=== PATIENT | female | born 1990 | race Caucasian/White ===

== ENCOUNTER 2018-12-06 13:21 | Emergency (ER) | payer SELFPAY ==
[2018-12-06] MEDS ORDERED: CEFTRIAXONE/SWI 1gm 1 GM/10 ML SYR ONE (14:45)
[2018-12-06] MEDS ORDERED: NA CHLORIDE 0.9% 1,000 ML ONE (14:45)
[2018-12-06 14:53] LABS: Urine Bacteria >50 /HPF (<20); Urine RBC <5 /HPF (NONE SEEN)
[2018-12-06 14:54] LABS: Urine Culture Reflex Order REFLEXED
[2018-12-06 14:56] LABS: Absolute Lymphocytes (CBC) 2.4 K/uL (0.7-4.9); Basophils % 0.6 % (0-1.3); Hematocrit 32.8 % (36.0-45.0); Lymphocytes % 36.7 % (15.3-44.8); RBC Red Blood Cell Count 4.29 M/uL (3.86-4.86)
--- NOTE | 2018-12-06 15:20 | RAD REPORT ---
EXAM DESCRIPTION: CT - Stone Protocol - 12/06/2018 2:57 pm CLINICAL HISTORY: Abdominal pain COMPARISON: None. TECHNIQUE: Axial 5 mm thick images were obtained without oral or IV contrast. The [id number] span s the entirety of the system partially obscuring uppermost abdomen and lung bases. All CT scans are performed using dose optimization technique as appropriate and may include automated exposure control or mA/KV adjustment according to patient size. FINDINGS: No hydronephrosis is present and no obstructing ureteral calculi. Patient has extensive re nal pyramid calcification. No suspicious renal masses. Isodense masses and pyelonephritis are not exc luded on a stone protocol CT scan. No urinary bladder suspicious finding. No significant adrenal find ing. Uterus and ovaries show no suspicious findings. IUD is in place. Imaged portions of the liver, spleen and pancreas show no suspicious findings on non-contrast imaging . No gallbladder or biliary tree abnormality identified. No suspicious bowel findings. No hernia, mass or bulky lymphadenopathy noted. No free air, free fluid or inflammatory stranding. No significant bony abnormality. IMPRESSION: Extensive bilateral medullary nephrocalcinosis. There are numerous etiologies that cause this renal pyramid mineral deposition. No hydronephrosis or obstructing calculus. No acute finding identified. Isodense masses and pyelonephritis are not excluded on stone protocol technique. 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
--- NOTE | 2018-12-06 15:40 | ER ---
Nurse's Notes [facility] Name: Zelda Davalos Age: 27 yrs Sex: Female : 1990 Arrival Date: 12/06/2018 Time: 13:24 Bed 28 Private MD: JOSE MARSHALL Diagnosis: Abdominal tenderness;Urinary tract infection, site not specified Presentation: 12/06 13:28 Presenting complaint: Patient states: Abd pain since Wednesday, a few episodes of la1 vomiting. Transition of care: patient was not received from another setting of care. Onset of symptoms was December 06, 2018. Risk Assessment: Do you want to hurt yourself or someone else? Patient reports no desire to harm self or others. Initial Sepsis Screen: Does the patient meet any 2 criteria? No. Patient's initial sepsis screen is negative. Does the patient have a suspected source of infection? No. Patient's initial sepsis screen is negative. Care prior to arrival: None. 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 - Social history:: Smoking status: Patient/guardian denies using tobacco. - Ebola Screening: : No symptoms or risks identified at this time. - Family history:: not pertinent. Screenin:57 Abuse screen: Denies threats or abuse. Denies injuries from another. Nutritional ca1 screening: No deficits noted. Tuberculosis screening: No symptoms or risk factors identified. Fall Risk None identified. Assessment: 13:57 General: Appears in no apparent distress. comfortable, Behavior is calm, cooperative, ca1 appropriate for age. Pain: Complains of pain in posterior aspect of right lateral abdomen, right upper quadrant and right lower quadrant Pain currently is 3 out of 10 on a pain scale. at worst was 7 out of 10 on a pain scale. Quality of pain is described as sharp, Pain began 2-3 days ago. Is intermittent. Neuro: Level of Consciousness is awake, alert, obeys commands, Oriented to person, place, time, situation, Appropriate for age. Cardiovascular: Heart tones S1 S2 present Capillary refill < 3 seconds Patient's skin is warm and dry. Respiratory: Airway is patent Respiratory effort is even, unlabored, Respiratory pattern is regular, symmetrical, Breath sounds are clear bilaterally. GI: Abdomen is round non-distended, Bowel sounds present X 4 quads. Abd is soft X 4 quads Abdomen is tender to palpation in right upper quadrant and right lower quadrant Reports nausea, vomiting. : Urine is cloudy. EENT: No deficits noted. No signs and/or symptoms were reported regarding the EENT system. Derm: Skin is intact, is healthy with good turgor, Skin is pink, warm \T\ dry. Musculoskeletal: Circulation, motion, and sensation intact. Capillary refill < 3 seconds, Range of motion: intact in all extremities. 14:55 Reassessment: Patient appears in no apparent distress at this time. Patient and/or ca1 family updated on plan of care and expected duration. Pain level reassessed. Patient is alert, oriented x 3, equal unlabored respirations, skin warm/dry/pink. 15:46 Reassessment: Patient appears in no apparent distress at this time. Patient is alert, ca1 oriented x 3, equal unlabored respirations, skin warm/dry/pink. pending lab results. Will discharge once labs all resulted. 16:25 Reassessment: Patient appears in no apparent distress at this time. Patient is alert, ca1 oriented x 3, equal unlabored respirations, skin warm/dry/pink. Vital Signs: 13:28 Pulse 83; Resp 16; Temp 98.8; Pulse Ox 100% on R/A; Weight 95.25 kg; Height 5 ft. 3 in. la1 (160.02 cm); 13:28 BP 119 / 93; la1 14:55 BP 117 / 74; Pulse 60; Resp 16 S; Pulse Ox 100% ; ca1 15:46 BP 106 / 76; Pulse 65; Resp 16 S; Pulse Ox 100% on R/A; ca1 16:25 BP 110 / 83; Pulse 71; Resp 16 S; Temp 98.4(O); Pulse Ox 100% on R/A; ca1 13:28 Body Mass Index 37.20 (95.25 kg, 160.02 cm) la1 ED Course: 13:24 Patient arrived in ED. am2 13:25 JOSE MARSHALL is Private Physician. am2 13:28 Arm band placed on right wrist. la1 13:29 Triage completed. la1 13:30 Jonathan Parham MD is Attending Physician. carlo 13:45 Dodie Panda, RN is Primary Nurse. ca1 13:57 Patient has correct armband on for positive identification. Placed in gown. Bed in low ca1 position. Call light in reach. Side rails up X 1. Pulse ox on. NIBP on. Warm blanket given. 13:57 No provider procedures requiring assistance completed. ca1 14:00 Urine collected: clean catch specimen, clear, gema colored. jp3 14:40 Inserted saline lock: 22 gauge in left antecubital area, using aseptic technique. Blood jp3 collected. 14:40 Initial lab(s) drawn, by wi, sent to lab. jp3 14:43 Basic Metabolic Panel Sent. ca1 14:43 CBC with Diff Sent. ca1 14:43 Creatinine for Radiology Sent. ca1 14:43 Hepatic Function Sent. ca1 14:43 Lipase Sent. ca1 14:58 CT Stone Protocol In Process Unspecified. EDMS 16:23 IV discontinued, intact, bleeding controlled, No redness/swelling at site. Pressure ca1 dressing applied. Administered Medications: 14:49 Drug: NS 0.9% 1000 ml Route: IV; Rate: 1 bolus; Site: left antecubital; ca1 15:45 Follow up: Response: No adverse reaction; IV Status: Completed infusion ca1 14:49 Drug: Rocephin 1 grams Route: IV; Rate: per protocol; Site: left antecubital; ca1 16:00 Follow up: Response: No adverse reaction; IV Status: Completed infusion ca1 15:45 Drug: Cipro 500 mg Route: PO; ca1 15:45 Follow up: Response: No adverse reaction ca1 Outcome: 15:39 Discharge ordered by . carlo 16:23 Discharged to home ambulatory. ca1 16:23 Condition: stable 16:23 Discharge instructions given to patient, Instructed on discharge instructions, follow up and referral plans. no driving heavy equipment, medication usage, Demonstrated understanding of instructions, follow-up care, medications, Prescriptions given X 4. 16:26 Patient left the ED. ca1 Signatures: Dispatcher [employer] EDMS Jonathan Parham MD MD cha Attema, Lee, RN RN la1 Sherri Lin am2 Maximo Jackson jp3 Dodie Panda RN RN ca1 Corrections: (The following items were deleted from the chart) 16:26 15:46 Reassessment: Patient appears in no apparent distress at this time. Patient is ca1 alert, oriented x 3, equal unlabored respirations, skin warm/dry/pink. ca1
--- NOTE | 2018-12-06 15:40 | EDPHYS ---
Physician Documentation [facility] Name: Zelda Davalos Age: 27 yrs Sex: Female : 1990 Arrival Date: 12/06/2018 Time: 13:24 Bed 28 Private MD: JOSE MARSHALL ED Physician Jonathan Parham HPI: 12/06 14:41 This 27 yrs old Female presents to ER via Ambulatory with complaints of carlo Abdominal Pain, Nausea. 14:41 The patient presents to the emergency department with nausea, vomiting, abdominal pain, carlo of the right lower quadrant and left lower quadrant. Onset: The symptoms/episode began/occurred 3 day(s) ago. Possible causes: unknown. The symptoms are aggravated by movement, The symptoms are alleviated by nothing. Associated signs and symptoms: The patient has no apparent associated signs or symptoms. Severity of symptoms: At their worst the symptoms were mild moderate in the emergency department the symptoms are unchanged. The patient has not experienced similar symptoms in the past. 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 - Social history:: Smoking status: Patient/guardian denies using tobacco. - Ebola Screening: : No symptoms or risks identified at this time. - Family history:: not pertinent. ROS: 14:41 Constitutional: Negative for fever, chills, and weight loss, Eyes: Negative for injury, carlo pain, redness, and discharge, ENT: Negative for injury, pain, and discharge, Neck: Negative for injury, pain, and swelling, Cardiovascular: Negative for chest pain, palpitations, and edema, Respiratory: Negative for shortness of breath, cough, wheezing, and pleuritic chest pain, Back: Negative for injury and pain, : Negative for injury, bleeding, discharge, and swelling, MS/Extremity: Negative for injury and deformity, Skin: Negative for injury, rash, and discoloration, Neuro: Negative for headache, weakness, numbness, tingling, and seizure, Psych: Negative for depression, anxiety, suicide ideation, homicidal ideation, and hallucinations, Allergy/Immunology: Negative for hives, rash, and allergies, Endocrine: Negative for neck swelling, polydipsia, polyuria, polyphagia, and marked weight changes, Hematologic/Lymphatic: Negative for swollen nodes, abnormal bleeding, and unusual bruising. 14:41 Abdomen/GI: Positive for abdominal pain, of the right lower quadrant. Exam: 14:41 Constitutional: This is a well developed, well nourished patient who is awake, alert, carlo and in no acute distress. Head/Face: Normocephalic, atraumatic. Eyes: Pupils equal round and reactive to light, extra-ocular motions intact. Lids and lashes normal. Conjunctiva and sclera are non-icteric and not injected. Cornea within normal limits. Periorbital areas with no swelling, redness, or edema. ENT: Nares patent. No nasal discharge, no septal abnormalities noted. Tympanic membranes are normal and external auditory canals are clear. Oropharynx with no redness, swelling, or masses, exudates, or evidence of obstruction, uvula midline. Mucous membranes moist. Neck: Trachea midline, no thyromegaly or masses palpated, and no cervical lymphadenopathy. Supple, full range of motion without nuchal rigidity, or vertebral point tenderness. No Meningismus. Chest/axilla: Normal chest wall appearance and motion. Nontender with no deformity. No lesions are appreciated. Cardiovascular: Regular rate and rhythm with a normal S1 and S2. No gallops, murmurs, or rubs. Normal PMI, no JVD. No pulse deficits. Respiratory: Lungs have equal breath sounds bilaterally, clear to auscultation and percussion. No rales, rhonchi or wheezes noted. No increased work of breathing, no retractions or nasal flaring. Back: No spinal tenderness. No costovertebral tenderness. Full range of motion. Skin: Warm, dry with normal turgor. Normal color with no rashes, no lesions, and no evidence of cellulitis. MS/ Extremity: Pulses equal, no cyanosis. Neurovascular intact. Full, normal range of motion. Neuro: Awake and alert, GCS 15, oriented to person, place, time, and situation. Cranial nerves II-XII grossly intact. Motor strength 5/5 in all extremities. Sensory grossly intact. Cerebellar exam normal. Normal gait. Psych: Awake, alert, with orientation to person, place and time. Behavior, mood, and affect are within normal limits. 14:41 Abdomen/GI: Inspection: abdomen appears normal, Bowel sounds: normal, Palpation: moderate abdominal tenderness, in the right lower quadrant, Liver: is firm, Hernia: not appreciated. Vital Signs: 13:28 Pulse 83; Resp 16; Temp 98.8; Pulse Ox 100% on R/A; Weight 95.25 kg; Height 5 ft. 3 in. la1 (160.02 cm); 13:28 BP 119 / 93; la1 14:55 BP 117 / 74; Pulse 60; Resp 16 S; Pulse Ox 100% ; ca1 15:46 BP 106 / 76; Pulse 65; Resp 16 S; Pulse Ox 100% on R/A; ca1 16:25 BP 110 / 83; Pulse 71; Resp 16 S; Temp 98.4(O); Pulse Ox 100% on R/A; ca1 13:28 Body Mass Index 37.20 (95.25 kg, 160.02 cm) la1 MDM: 13:30 Patient medically screened. [facility] 14:44 Data reviewed: vital signs, nurses notes, lab test result(s), radiologic studies, CT carlo scan. 12/06 13:57 Order name: Urine Microscopic Only; Complete Time: 15:32 ca1 12/06 13:57 Order name: Urine Culture ca1 12/06 14:41 Order name: Basic Metabolic Panel; Complete Time: 16:18 carlo 12/06 14:41 Order name: CBC with Diff; Complete Time: 15:32 carlo 12/06 14:41 Order name: Creatinine for Radiology; Complete Time: 15:32 carlo 12/06 14:41 Order name: Hepatic Function; Complete Time: 16:18 carlo 12/06 13:57 Order name: Urine Dipstick-Ancillary (obtain specimen); Complete Time: 13:57 ca1 12/06 14:41 Order name: Lipase; Complete Time: 16:18 carlo 12/06 14:41 Order name: CT Stone Protocol; Complete Time: 15:32 carlo 12/06 14:43 Order name: Urine Dipstick--Ancillary (enter results); Complete Time: 16:18 bd 12/06 14:43 Order name: Urine --Ancillary (enter results); Complete Time: 16:18 bd 12/06 13:57 Order name: Urine Test (obtain specimen); Complete Time: 13:57 ca1 12/06 14:41 Order name: IV Saline Lock; Complete Time: 14:43 [facility] 12/06 14:41 Order name: Labs collected and sent; Complete Time: 14:43 [facility] Administered Medications: 14:49 Drug: NS 0.9% 1000 ml Route: IV; Rate: 1 bolus; Site: left antecubital; ca1 15:45 Follow up: Response: No adverse reaction; IV Status: Completed infusion ca1 14:49 Drug: Rocephin 1 grams Route: IV; Rate: per protocol; Site: left antecubital; ca1 16:00 Follow up: Response: No adverse reaction; IV Status: Completed infusion ca1 15:45 Drug: Cipro 500 mg Route: PO; ca1 15:45 Follow up: Response: No adverse reaction ca1 Disposition: 12/06/18 15:39 Discharged to Home. Impression: Abdominal tenderness, Urinary tract infection, site not specified. - Condition is Stable. - Discharge Instructions: Abdominal Pain, Adult, Urinary Tract Infection, Adult, Abdominal Pain, Adult, [id number]. - Prescriptions for Bentyl 20 mg Oral Tablet - take 1 tablet by ORAL route every 6 hours As needed; 20 tablet. Tylenol- Codeine #3 300-30 mg Oral Tablet - take 2 tablets by ORAL route every 6 hours As needed; 20 tablet. Cipro 500 mg Oral Tablet - take 1 tablet by ORAL route every 12 hours for 7 days; 14 tablet. Bactrim DS 800- 160 mg Oral Tablet - take 1 tablet by ORAL route every 12 hours for 5 days; 10 tablet. - Medication Reconciliation Form, Thank You Letter, Antibiotic Education, Prescription Opioid Use form. - Follow up: Private Physician; When: 2 - 3 days; Reason: Recheck today's complaints, Continuance of care, Re-evaluation by your physician. - Problem is new. - Symptoms have improved. Signatures: Dispatcher [employer] EDMS Jonathan Parham MD MD cha Attema, Lee RN RN la1 Dodie Panda RN RN ca1 Corrections: (The following items were deleted from the chart) 16:26 15:39 12/06/2018 15:39 Discharged to Home. Impression: Abdominal tenderness; Urinary ca1 tract infection, site not specified. Condition is Stable. Forms are Medication Reconciliation Form, Thank You Letter, Antibiotic Education, Prescription Opioid Use. Follow up: Private Physician; When: 2 - 3 days; Reason: Recheck today's complaints, Continuance of care, Re-evaluation by your physician. Problem is new. Symptoms have improved. carlo
[2018-12-06] MEDS ORDERED: CIPROFLOXACIN HCL 500 MG TAB ONE (15:43)
[2018-12-06 15:49] LABS: Urine Blood 2+ (NEG); Urine Glucose NEGATIVE (NEG); Urine Protein NEGATIVE (NEG); Urine Specific Gravity 1.015 (1.005-1.030); Urine pH 6.5 (5.0-7.0)
[2018-12-06 15:57] LABS: ALT/SGPT 17 U/L (12-78); AST/SGOT 19 U/L (15-37); Albumin 4.7 g/dL (3.4-5.0); Alkaline Phosphatase 65 U/L (45-117); BUN Blood Urea Nitrogen 12 mg/dL (7-18); Bicarbonate 27 mmol/L (21-32); Bilirubin Direct < 0.1 mg/dL (0-0.2); Bilirubin Total 0.3 mg/dL (0.2-1.0); Glucose Level 77 mg/dL (74-106); Lipase 119 U/L (73-393); Potassium 3.5 mmol/L (3.5-5.1); Protein, Total 9.6 g/dL (6.4-8.2); Sodium Level 138 mmol/L (136-145)
[2018-12-06 16:53] VITALS: O2SAT 100
[2018-12-06 16:57] VITALS: BP 110/83; TEMP 98.4
== END 2018-12-06 16:26 | disposition home or self-care (01) ==
LOC: ER 13:21
DX: N39.0 Urinary tract infection, site not specified (principal)
CPT/HCPCS: 36415; 74176; 76377; 80048; 80076; 81003; 81015; 81025; 83690; 85025; 87077; 87086; 87088; 87186; 96365; 99284; J0696; J7030

== ENCOUNTER 2020-03-16 16:13 | Emergency (ER) | payer SELFPAY ==
--- OUTSIDE RECORDS SUMMARY | 2020-03-16 16:15 | XMS REPORT | Continuity of Care Document ---
:1990 Author Organization [facility] t Address [address] [place] [address] Care Team Providers Name Role Phone Pcp, Does Not Have A Attending Clinician Lab, [facility] I Attending Clinician Unavailable Problems This patient has no known problems. Allergies, Adverse Reactions, Alerts This patient has no known allergies or adverse reactions. Medications This patient has no known medications. Procedures This patient has no known procedures. 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
[2020-03-16 17:12] LABS: Urine Appearance CLOUDY; Urine Bilirubin NEGATIVE (NEG); Urine Blood 3+ (NEG); Urine Color YELLOW; Urine Glucose NEGATIVE (NEG); Urine Protein 1+ (NEG); Urine Specific Gravity 1.015 (1.005-1.030); Urine Urobilinogen 0.2 mg/dL (0.2-1.0); Urine pH 6.5 (5.0-7.0)
[2020-03-16 17:14] LABS: Urine Blood 3+ (NEG); Urine Glucose NEGATIVE (NEG); Urine Protein 1+ (NEG)
[2020-03-16 17:25] LABS: Urine Bacteria >50 /HPF (<20); Urine RBC >50 /HPF (NONE SEEN)
--- NOTE | 2020-03-16 19:56 | RAD REPORT ---
EXAM DESCRIPTION: CT - Stone Protocol - 03/16/2020 7:46 pm CLINICAL HISTORY: Flank pain. FLANK PAIN COMPARISON: Stone Protocol dated 12/06/2018 TECHNIQUE: Axial images were obtained without oral or IV contrast. Lack of contrast limits solid org an and vascular assessment. The [id number] spans the entirety of the system partially obscuring uppermost abdomen and lung bases. Coronal reformatted images were obtained and reviewed. All CT scans are performed using dose optimization technique as appropriate and may include automated exposure control or mA/KV adjustment according to patient size. FINDINGS: The lower lung stratton are clear. Imaged portions of the liver and spleen show no suspicious findings on non-contrast imaging. The panc reas and adrenal glands are normal. No pathologic lymphadenopathy in the abdomen or pelvis. Multiple stones are present in the calices of both kidneys. 7 mm stone is seen in the right renal pel vis. 6 mm stone is present at the left UVJ resulting mild left hydroureter and hydronephrosis. No bowel obstruction, free air, free fluid or abscess. Normal appendix noted.IUD is seen in the uteru s. No significant bony abnormality. IMPRESSION: 6 mm stone is present at the left UVJ with mild left hydronephrosis. Additional bilateral nephrolithiasis is present.
[2020-03-16] MEDS ORDERED: ONDANSETRON 4 MG/2 ML VIAL ONE (20:04)
[2020-03-16] MEDS ORDERED: MORPHINE 4 MG/ML SYR ONE (20:04)
[2020-03-16] MEDS ORDERED: CEFTRIAXONE/SWI 1gm 1 GM/10 ML SYR ONE (20:04)
[2020-03-16] MEDS ORDERED: NA CHLORIDE 0.9% 1,000 ML ONE ×2 (20:04→22:33)
[2020-03-16 20:19] LABS: Absolute Lymphocytes (CBC) 1.3 K/uL (0.7-4.9); Basophils % 0.8 % (0-1.3); Hematocrit 38.6 % (36.0-45.0); Lymphocytes % 8.7 % (15.3-44.8); MPV 7.8 fL (7.6-11.3); RBC Red Blood Cell Count 4.71 M/uL (3.86-4.86)
[2020-03-16 20:32] LABS: Albumin 4.8 g/dL (3.4-5.0); Bilirubin Direct 0.1 mg/dL (0-0.2); Bilirubin Total 0.4 mg/dL (0.2-1.0); Potassium 3.7 mmol/L (3.5-5.1); Protein, Total 10.5 g/dL (6.4-8.2)
[2020-03-16] MEDS ORDERED: KETOROLAC 30 MG/ML INJ ONE (20:57)
[2020-03-16] MEDS ORDERED: MAGNESIUM SULFATE 1 gm IVPB 1 GM/100 ML BAG IV ONE (20:57)
[2020-03-16 21:14] LABS: Blood Morphology Comment NOTED (NOT SEEN); Platelet Estimate ADEQ
[2020-03-16] MEDS ORDERED: TAMSULOSIN 0.4 MG SR CAP ONE (21:36)
[2020-03-16] MEDS ORDERED: MEPERIDINE HCL 25 MG/ML SYR ONE (22:33)
--- NOTE | 2020-03-16 22:43 | EDPHYS ---
Physician Documentation [facility] Name: Zelda Davalos Age: 29 yrs Sex: Female : 1990 Arrival Date: 03/16/2020 Time: 16:15 Bed 19 Private MD: ED Physician Garcia Ramos HPI: 03/16 19:35 This 29 yrs old Female presents to ER via Ambulatory with complaints of cp Kidney Pain. 19:35 The patient complains of pain in the left flank. cp 19:35 The pain radiates to the abdomen. Onset: The symptoms/episode began/occurred today, at cp 14:00. Associated signs and symptoms: Pertinent positives: nausea, vomiting, Pertinent negatives: diarrhea, dysuria, fever, pain radiating to the lower extremities. Historical: - Allergies: 16:20 No Known Allergies; ll1 - PMHx: 16:20 Hypothyroidism; kidney problems; ll1 - PSHx: 16:20 ; ll1 - Immunization history:: Flu vaccine is not up to date. - Social history:: Smoking status: Patient denies any tobacco usage or history of. ROS: 20:00 Constitutional: Positive for chills, poor PO intake, Negative for fever. cp 20:00 Eyes: Negative for injury, pain, redness, and discharge. cp 20:00 Cardiovascular: Negative for chest pain. 20:00 Respiratory: Negative for cough, shortness of breath, wheezing. 20:00 Abdomen/GI: Positive for abdominal pain, nausea and vomiting. 20:00 Back: Positive for flank pain, on the left. 20:00 : Positive for urinary frequency. 20:00 Neuro: Negative for altered mental status, headache, weakness. 20:00 All other systems are negative. Exam: 20:05 Constitutional: The patient appears in no acute distress, alert, awake, cp non-diaphoretic, non-toxic, well developed, well nourished, obese. 20:05 Head/Face: Normocephalic, atraumatic. cp 20:05 Eyes: Periorbital structures: appear normal, Conjunctiva: normal, no exudate, no injection, Lids and lashes: appear normal, bilaterally. 20:05 ENT: External ear(s): are unremarkable, Nose: is normal, Mouth: Lips: moist, Posterior pharynx: Airway: no evidence of obstruction, patent. 20:05 Neck: ROM/movement: is normal, is supple, without pain, no range of motions limitations. 20:05 Chest/axilla: Inspection: normal, Palpation: is normal, no crepitus, no tenderness. 20:05 Cardiovascular: Rate: normal, Rhythm: regular. 20:05 Respiratory: the patient does not display signs of respiratory distress, Respirations: normal, no use of accessory muscles, no retractions, labored breathing, is not present, Breath sounds: are clear throughout, no decreased breath sounds, no stridor, no wheezing. 20:05 Abdomen/GI: Inspection: abdomen appears normal, Bowel sounds: active, all quadrants, Palpation: soft, in all quadrants, severe abdominal tenderness, in the posterior aspect of left lateral abdomen and anterior aspect of left lateral abdomen, voluntary guarding, is elicited in the posterior aspect of left lateral abdomen and anterior aspect of left lateral abdomen. 20:05 Back: CVA tenderness, that is severe, is noted on the left. 20:05 Skin: cellulitis, is not appreciated, no rash present. 20:05 Neuro: Orientation: to person, place \T\ time. Mentation: is normal, Motor: moves all fours, strength is normal. Vital Signs: 16:20 BP 139 / 94; Pulse 83; Resp 20; Temp 97.7; Pulse Ox 100% ; Weight 117.93 kg; Height 5 ll1 ft. 9 in. (175.26 cm); Pain 8/10; 20:00 BP 129 / 87; Pulse 85; Resp 20; Pulse Ox 99% on R/A; vg1 20:45 BP 121 / 76; Pulse 83; Resp 18; Pulse Ox 99% on R/A; vg1 22:10 Temp 99.4; vg1 22:40 BP 130 / 77; Pulse 116; Resp 16; Pulse Ox 99% on R/A; vg1 23:00 BP 115 / 70; Pulse 112; Resp 18; Pulse Ox 98% on R/A; vg1 16:20 Body Mass Index 38.39 (117.93 kg, 175.26 cm) ll1 MDM: 19:33 Patient medically screened. cp 20:00 Differential diagnosis: nephrolithiasis, pyelonephritis, UTI, sepsis. cp 21:45 Data reviewed: vital signs, nurses notes, lab test result(s), radiologic studies, CT cp scan, I have discussed the patient's presentation/case with the attending Emergency Department Physician; and as a result, I will transfer patient. 22:05 Physician consultation: was contacted at 22:00, regarding regarding transfer, to [facility]. consult, patient's condition, DR Rolon, urologist, will consult and requests transfer to hospitalist services. 22:30 Physician consultation: was contacted at 22:25, regarding regarding transfer, to [facility]. patient's condition, accepting physician will be DR Dejesus, hospitalist. 03/16 16:52 Order name: Urine Culture 03/16 16:59 Order name: Urine Dipstick--Ancillary (enter results); Complete Time: 19:20 03/16 21:05 Interpretation: Normal except: UBLD 3+; UPROT 1+; U NIT POSITIVE; UESTR 3+. 03/16 16:59 Order name: Urine --Ancillary (enter results); Complete Time: 19:20 03/16 17:07 Order name: Urinalysis W/Microscopic; Complete Time: 19:20 EDMS 03/16 21:23 Interpretation: Normal except: UBLD 3+; UPROT 1+; U NIT POSITIVE; UESTR 3+; UWBC >50; cp URBC >50; UBACT >50. 03/16 19:32 Order name: Basic Metabolic Panel; Complete Time: 20:49 03/16 20:50 Interpretation: Normal except: GLUC 119; GFR 60. 03/16 19:32 Order name: CBC with Diff; Complete Time: 21:21 03/16 21:05 Interpretation: Normal except: WBC 15.1; MCV 81.9; RDW 15.6; ULYSSES% 88.9; LYM% 8.7; NEUT cp A 13.5; MN% 1.5. 03/16 19:32 Order name: Hepatic Function; Complete Time: 20:49 03/16 20:50 Interpretation: Normal except: TP 10.5; GLOB 5.7; A/G 0.8. 03/16 19:32 Order name: Lipase; Complete Time: 20:49 03/16 19:32 Order name: Procalcitonin; Complete Time: 21:21 03/16 19:32 Order name: Lactate; Complete Time: 20:49 cp 03/16 20:51 Interpretation: Reviewed. cp 03/16 19:33 Order name: Blood Culture Adult (2) cp 03/16 20:27 Order name: Manual Differential; Complete Time: 21:21 EDMS 03/16 21:21 Interpretation: Normal except: SEGS 84; BANDS [F] 7; LYM 9. cp 03/16 16:52 Order name: Urine Test (obtain specimen); Complete Time: 16:52 sv 03/16 19:32 Order name: IV Saline Lock; Complete Time: 20:15 cp 03/16 19:32 Order name: Labs collected and sent; Complete Time: 20:15 cp 03/16 19:32 Order name: CT Stone Protocol; Complete Time: 20:14 cp Administered Medications: 20:05 Drug: morphine 4 mg {Note: rass 1.} Route: IVP; Site: right antecubital; vg1 20:30 Follow up: Response: Pain is unchanged, physician notified vg1 20:05 Drug: Zofran (Ondansetron) 4 mg Route: IVP; Site: right antecubital; vg1 21:34 Follow up: Response: No adverse reaction vg1 20:05 Drug: NS 0.9% 1000 ml Route: IV; Rate: 1 bolus; Site: right antecubital; vg1 20:50 Follow up: IV Status: Completed infusion; IV Intake: 1000ml lp1 21:34 Follow up: IV Status: Completed infusion; IV Intake: 1000ml vg1 20:15 Drug: Rocephin 1 grams Route: IV; Rate: calculated rate; Site: right antecubital; vg1 20:48 Drug: Magnesium Sulfate 1 grams Route: IVPB; Infused Over: 1 hrs; Site: right lp1 antecubital; 20:48 Drug: TORadol - Ketorolac 15 mg Route: IVP; Site: right antecubital; lp1 21:34 Follow up: Response: Pain is decreased vg1 21:33 Drug: Flomax 0.4 mg Route: PO; vg1 22:46 Drug: Demerol 25 mg {Note: rass 1.} Route: IVP; Site: right antecubital; vg1 23:54 Follow up: Response: Pain is decreased; RASS: Alert and Calm (0) vg1 22:46 Drug: NS 0.9% 1000 ml Route: IV; Rate: 1 bolus; Site: right antecubital; vg1 23:54 Follow up: IV Status: Completed infusion; IV Intake: 1000ml vg1 Disposition: 03/17 07:03 Co-signature as Attending Physician, Garcia Raoms MD. [email or web address] Disposition: 03/16/20 22:[address] [facility]. Diagnosis are Calculus of kidney with calculus of ureter, Bandemia. - Reason for transfer: Higher level of care. - Accepting physician is DR Dejesus. - Condition is Stable. - Problem is new. - Symptoms have improved. Signatures: Dispatcher [employer] EDMS Elenita Robertson, RN RN Jennifer Barajas RN RN lp1 Jonathan Black PA PA cp Vergel De Dio, Flomeliza, RN RN fv Garcia, Victoria, RN RN 1 Luis E Hou RN RN [facility] Garcia Ramos MD MD [facility] Corrections: (The following items were deleted from the chart) 03/16 17:07 16:52 UA MICROSCOPIC+U.LAB.BRZ ordered. EDMS EDMS 17: 16:52 URINALYSIS+U.LAB.BRZ ordered. EDMS EDMS 22:54 22:16 CORONAVIRUS+MR.LAB.BRZ ordered. EDMS EDMS 03/17 00:35 03/16 22:42 03/16/2020 22:[address] [facility]. fv Diagnosis is Calculus of kidney with calculus of ureter; Bandemia. Reason for transfer: Higher level of care. Accepting physician is DR Dejesus. Condition is Stable. Problem is new. Symptoms have improved. cp
--- NOTE | 2020-03-16 22:43 | ER ---
Nurse's Notes [facility] Name: Zelda Davalos Age: 29 yrs Sex: Female : 1990 Arrival Date: 03/16/2020 Time: 16:15 Bed 19 Private MD: Diagnosis: Calculus of kidney with calculus of ureter;Bandemia Presentation: 03/16 16:20 Chief complaint: Patient states: Sudden onset left lower back pain since 1400 today. ll1 Urinary frequency noticed, no dysuria. No known fever. Coronavirus screen: Client denies travel out of the [place] in the last 14 days. At this time, the client does not indicate any symptoms associated with coronavirus-19. Ebola Screen: Patient denies travel to an Ebola-affected area in the 21 days before illness onset. Initial Sepsis Screen: Does the patient meet any 2 criteria? No. Patient's initial sepsis screen is negative. Does the patient have a suspected source of infection? Yes: Dysuria/Frequency/Urgency/UTI. Risk Assessment: Do you want to hurt yourself or someone else? Patient reports no desire to harm self or others. Onset of symptoms was March 16, 2020. 16:20 Method Of Arrival: Ambulatory ll1 16:20 Acuity: MINAL 3 ll1 Triage Assessment: 16:23 General: Appears uncomfortable, Behavior is calm, cooperative, appropriate for age. ll1 Pain: Complains of pain in L lower back Pain currently is 8 out of 10 on a pain scale. Quality of pain is described as aching, throbbing, Pain began 4 hours ago. Neuro: No deficits noted. Cardiovascular: No deficits noted. Respiratory: No deficits noted. GI: Abdomen is round Reports nausea. : Reports urinary frequency. Musculoskeletal: Reports pain in L lower back. Historical: - Allergies: 16:20 No Known Allergies; ll1 - PMHx: 16:20 Hypothyroidism; kidney problems; ll1 - PSHx: 16:20 ; ll1 - Immunization history:: Flu vaccine is not up to date. - Social history:: Smoking status: Patient denies any tobacco usage or history of. Screenin:55 Abuse screen: Denies threats or abuse. Nutritional screening: No deficits noted. vg1 Tuberculosis screening: No symptoms or risk factors identified. Fall Risk No fall in past 12 months (0 pts). No secondary diagnosis (0 pts). IV access (20 points). Ambulatory Aid- None/Bed Rest/Nurse Assist (0 pts). Gait- Normal/Bed Rest/Wheelchair (0 pts) Mental Status- Oriented to own ability (0 pts). Total Schmitz Fall Scale indicates No Risk (0-24 pts). Assessment: 19:55 General: Appears in no apparent distress. uncomfortable, Behavior is cooperative, vg1 crying. Pain: Complains of pain in left back pain Pain currently is 10 out of 10 on a pain scale. Quality of pain is described as sharp, Pain began around 1400 today. Noted to be crying, grimacing, moaning. Neuro: Level of Consciousness is awake, alert, obeys commands, Oriented to person, place, time, situation. Cardiovascular: Patient's skin is warm and dry. Respiratory: Airway is patent Respiratory effort is even, unlabored. GI: No signs and/or symptoms were reported involving the gastrointestinal system. GI: Reports nausea, vomiting. : Reports urinary frequency, foul order during urination. EENT: No signs and/or symptoms were reported regarding the EENT system. Derm: Skin is intact, is healthy with good turgor. Musculoskeletal: Circulation, motion, and sensation intact. 20:40 Reassessment: Patient reports continued pain to left flank, grimacing in pain; Verbal lp1 order for Toradol 15mg IV now. 21:32 Reassessment: Patient appears in no apparent distress at this time. Patient and/or vg1 family updated on plan of care and expected duration. Pain level reassessed. Patient is alert, oriented x 3, equal unlabored respirations, skin warm/dry/pink. Stated pain 2/10 Patient states feeling better. 22:44 Reassessment: Patient appears in no apparent distress at this time. Patient and/or vg1 family updated on plan of care and expected duration. Pain level reassessed. Patient is alert, oriented x 3, equal unlabored respirations, skin warm/dry/pink. 22:52 Reassessment: Attempted to call report. vg1 23:23 Reassessment: Attempted to call report. Eusebia Mathew stated they are going to have to vg1 reassign patient another bed due to ratio on floor. Notified provider/Charge nurse. 23:50 Reassessment: Report given to Nedra Rene RN. vg1 Vital Signs: 16:20 BP 139 / 94; Pulse 83; Resp 20; Temp 97.7; Pulse Ox 100% ; Weight 117.93 kg; Height 5 ll1 ft. 9 in. (175.26 cm); Pain 8/10; 20:00 BP 129 / 87; Pulse 85; Resp 20; Pulse Ox 99% on R/A; vg1 20:45 BP 121 / 76; Pulse 83; Resp 18; Pulse Ox 99% on R/A; vg1 22:10 Temp 99.4; vg1 22:40 BP 130 / 77; Pulse 116; Resp 16; Pulse Ox 99% on R/A; vg1 23:00 BP 115 / 70; Pulse 112; Resp 18; Pulse Ox 98% on R/A; vg1 16:20 Body Mass Index 38.39 (117.93 kg, 175.26 cm) ll1 ED Course: 16:15 Patient arrived in ED. ds1 16:20 Arm band placed on. ll1 16:22 Triage completed. ll1 19:20 Jonathan Black PA is PHCP. cp 19:20 Garcia Ramos MD is Attending Physician. cp 19:38 Jennifer Hodge, RN is Primary Nurse. lp1 19:40 Primary Nurse role handed off by Jennifer Hodge, RN vg1 19:40 Etelvina Resendiz, RN is Primary Nurse. vg1 19:[address] via wheelchair. vg1 19:47 CT Stone Protocol In Process Unspecified. EDMS 20:00 Patient has correct armband on for positive identification. Placed in gown. Bed in low vg1 position. Call light in reach. Side rails up X2. Pulse ox on. NIBP on. 20:00 Inserted saline lock: 20 gauge in right antecubital area, using aseptic technique. vg1 Blood collected. 20:00 Initial lab(s) drawn, by me, sent to lab. First set of blood cultures drawn by me. vg1 20:18 Second set of blood cultures drawn. vg1 21:37 initiated a transfer with Eusebia Mathew from [facility]. [facility] 22:24 administrative approval given by Eusebia Mathew/ patient has been accepted to [address] bed 2442/ Dr. Dejesus has accepted the patient in transfer/ report to be called to [phone]. 22:47 No provider procedures requiring assistance completed. vg1 03/17 00:34 Patient transferred, IV remains in place. fv Administered Medications: 03/16 20:05 Drug: morphine 4 mg {Note: rass 1.} Route: IVP; Site: right antecubital; vg1 20:30 Follow up: Response: Pain is unchanged, physician notified vg1 20:05 Drug: Zofran (Ondansetron) 4 mg Route: IVP; Site: right antecubital; vg1 21:34 Follow up: Response: No adverse reaction vg1 20:05 Drug: NS 0.9% 1000 ml Route: IV; Rate: 1 bolus; Site: right antecubital; vg1 20:50 Follow up: IV Status: Completed infusion; IV Intake: 1000ml lp1 21:34 Follow up: IV Status: Completed infusion; IV Intake: 1000ml vg1 20:15 Drug: Rocephin 1 grams Route: IV; Rate: calculated rate; Site: right antecubital; vg1 20:48 Drug: Magnesium Sulfate 1 grams Route: IVPB; Infused Over: 1 hrs; Site: right lp1 antecubital; 20:48 Drug: TORadol - Ketorolac 15 mg Route: IVP; Site: right antecubital; lp1 21:34 Follow up: Response: Pain is decreased vg1 21:33 Drug: Flomax 0.4 mg Route: PO; vg1 22:46 Drug: Demerol 25 mg {Note: rass 1.} Route: IVP; Site: right antecubital; vg1 23:54 Follow up: Response: Pain is decreased; RASS: Alert and Calm (0) vg1 22:46 Drug: NS 0.9% 1000 ml Route: IV; Rate: 1 bolus; Site: right antecubital; vg1 23:54 Follow up: IV Status: Completed infusion; IV Intake: 1000ml vg1 Intake: 20:50 IV: 1000ml; Total: 1000ml. lp1 21:34 IV: 1000ml; Total: 2000ml. vg1 23:54 IV: 1000ml; Total: 3000ml. vg1 Outcome: 22:42 ER care complete, transfer ordered by MD. curtis 03/17 00:33 Transferred by ground EMS to [facility]. fv Condition: stable Instructed on the need for transfer. 00:35 Patient left the ED. fv Addendum: 03/19/2020 08:15 Addendum: Culture Results: Positive urine culture. Positive blood culture. Results a a5 faxed to [facility]. Signatures: Dispatcher [employer] EDDC Chiquis Hernández ds1 Daly Rocha RN RN aa5 Jennifer Hodge RN RN lp1 Jonathan Black PA PA cp Vergel De Dio, Flomeliza, RN RN Hortenisa JacqueElsie [facility] Etelvina Resendiz RN RN vg1 Luis E Hou RN RN ll1 Corrections: (The following items were deleted from the chart) 03/16 23:30 22:24 administrative approval given by Eusebia Mathew/ patient has been accepted to [address] bed 1614/ Dr. Dejesus has accepted the patient in transfer/ report to be called to [phone] [facility]
[2020-03-17 01:01] VITALS: BP 115/70; O2SAT 98
[2020-03-17 01:05] VITALS: TEMP 99
== END 2020-03-17 00:35 | disposition short-term general hospital (02) ==
LOC: ER 16:13
DX: N20.2 Calculus of kidney with calculus of ureter (principal); D72.825 Bandemia; Z20.822 Contact with and (suspected) exposure to COVID-19
CPT/HCPCS: 36415; 74176; 76377; 80048; 80076; 81001; 81003; 81025; 83605; 83690; 84145; 85025; 87040; 87077; 87086; 87088; 87186; 87205; 96361; 96374; 96375; 99285; J0696; J2175; J2405; J3475; J7030; U0003

== ENCOUNTER 2020-04-07 10:05 | Emergency (ER) | payer SELFPAY ==
--- OUTSIDE RECORDS SUMMARY | 2020-04-07 10:07 | XMS REPORT | Clinical Summary ---
:1990 Author Organization [facility] Address [address] [place] [address] Care Team Providers Name Role Phone Unavailable Primary Care Provider Unavailable Allergies No Known Allergies Medications Medication Sig Dispensed Refills Start Date End Date Status oxybutynin Take 1 30 tablet 0 03/19/2020 Active (DITROPAN) 5 MG tablet (5 mg 2 tablet total) by mouth 3 (three) times daily as needed (Bladder spasms). tamsulosin Take 1 30 capsule 0 03/20/2020 Active (FLOMAX) 0.4 mg capsule (0.4 Cap 24 hr capsule mg total) by mouth daily. levothyroxine Take 1 30 tablet 0 03/19/2020 Activ e (SYNTHROID, tablet (125 LEVOTHROID) 125 mcg total) MCG tablet by mouth Every morning on an empty stomach. levothyroxine Take 125 mcg 0 Dis continued (SYNTHROID, by mouth 1 (Reorder ) LEVOTHROID) 125 Every MCG tablet morning on an empty stomach. amoxicillin-clavul Take 1 22 tablet 0 03/19/2020 anate (AUGMENTIN) tablet by 1 875-125 mg per mouth 2 tablet (two) times daily for 11 days. 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 Last Filed Vital Signs Vital Sign Reading Time Taken Comments Blood Pressure 108/63 03/19/2020 1:45 PM [employer]ING [employer] SUPERVIS[employer] Pulse 85 03/19/2020 1:45 PM [employer]FUELING [employer] SUPERVISOR Temperature 36.7 C (98.1 F) 03/19/2020 1:45 PM REFUELING [employer] SUPERVISOR Respiratory Rate 13 03/19/2020 1:45 PM [employer]FUELING [employer] SUPERVISOR Oxygen Saturation 98% 03/19/2020 1:45 PM [employer]FU[employer]ING [employer] SUPERVIS[employer] Inhaled Oxygen Concentration - - Weight 117.9 kg (260 lb) 03/17/2020 2:18 AM REFUELING [employer] SUPERVISOR Height 175.3 cm (5' 9") 03/17/2020 2:18 AM REFUELING [employer] SUPERVISOR Body Mass Index 38.4 03/17/2020 2:18 AM REFUELING [employer]AMP SUPERVISOR Plan of Treatment Health Maintenance Due Date Last Done Comments HEPATITIS C SCREENING 12/11/2009 LIPID PANEL 2011 CERVICAL CANCER SCREENING PAP ONLY (Age 21-65) 12/11/2012 DTAP/TDAP/TD VACCINES (2 - Td) 02/11/2017 01/14/2017 INFLUENZA VACCINE (#1) 2019 DEPRESSION SCREENING (12+) 03/01/2020 Implants Implanted Type Area Metalworker Device Shelf Model / Identifier Expiration Serial / Date Lot Set Stent Injection 6x26cm [id number] - [id number] Left: [place] 07/23/2021 [id number] / Implanted: Qty: 1 on 03/17/2020 by Geoff Oneill MD at [facility] [employer] / [id number] Set Stent Injection 6x26cm [id number] - [id number] Right: JANICE 07/23/2021 [id number] / Implanted: Qty: 1 on 03/17/2020 by Geoff Oneill MD at [facility] [employer] / [id number] Procedures Procedure Name Priority Date/Time Associated Comments Diagnosis CBC W/PLT COUNT & Routine 03/19/2020 5:40 Result s for this AUTO DIFFERENTIAL AM RE[employer]ELING [employer] SUPERVISOR procedure are in the results section. BASIC METABOLIC PANEL Routine 03/19/2020 5:40 Re sults for this (7) AM [employer]ING [employer]PERVISOR procedure are i n the results section. CBC W/PLT COUNT & Routine 03/19/2020 5:40 Result s for this AUTO DIFFERENTIAL AM [employer]PERVISOR procedure are in the results section. BUN AND CREATININE Routine 03/19/2020 5:40 Resul ts for this W/RATIO AM [employer]ING [employer] SUPERVISOR procedure are i n the results section. CBC W/PLT COUNT & STAT 03/18/2020 6:20 Result s for this AUTO DIFFERENTIAL PM [employer]PERVIS[employer] procedure are in the results section. MAGNESIUM STAT 03/18/2020 6:20 Results for this PM [employer] SUPERVISOR procedure are i n the results section. BASIC METABOLIC PANEL STAT 03/18/2020 6:20 Re sults for this (7) PM [employer]ELING [employer] SUPERVISOR procedure are i n the results section. CBC W/PLT COUNT & STAT 03/18/2020 6:20 Result s for this AUTO DIFFERENTIAL PM [employer] SUPERVISOR procedure are in the results section. BASIC METABOLIC PANEL STAT 03/18/2020 4:51 Re sults for this (7) PM [employer]ELING [employer] SUPERVISOR procedure are i n the results section. FL FLUORO Routine 03/17/2020 1:50 Results for this NON-SPECIFIC UP TO 1 PM REFUELING RAMP SUPERVISOR procedu re are in HOUR the results section. SURGICALLY OBTAINED Routine 03/17/2020 1:15 Resu lts for this CULTURE + GRAM STAIN PM [employer]ELING [employer] SUPERVISOR procedu re are in the results section. FUNGUS CULTURE + Routine 03/17/2020 1:15 SMEAR PM RE[employer]ELING RAMP SUPERVISOR AFB CULTURE + SMEAR Routine 03/17/2020 1:15 (NON-SPUTUM) PM REFUELING RAMP SUPERVISOR SPIN/CONCENTRATION Routine 03/17/2020 1:15 Resul ts for this CHARGE PM RE[employer]ELING [employer]AMP SUPERVISOR procedure are i n the results section. CYSTOSCOPY,INSERTION 03/17/2020 12:[address] one URETERAL STENTS PM REFUELING RAMP SUPERVISOR CYSTOSCOPY,RETROGRADE 03/17/2020 12:24 Left ureteral s tone S PM [employer]ELING [employer] SUPERVISOR SCREEN, STAT 03/17/2020 9:31 Result s for this URINE AM REFUELING [employer]AMP SUPERVISOR procedure are i n the results section. CBC W/PLT COUNT & Routine 03/17/2020 4:16 Result s for this AUTO DIFFERENTIAL AM [employer]ELING [employer] SUPERVISOR procedure are in the results section. CBC W/PLT COUNT & Routine 03/17/2020 4:16 Result s for this AUTO DIFFERENTIAL AM [employer]ELING [employer]AMP SUPERVISOR procedure are in the results section. BASIC METABOLIC PANEL Routine 03/17/2020 4:16 Re sults for this (7) AM REFUELING [employer]AMP SUPERVISOR procedure are i n the results section. SARS-COV2/RT-PCR Routine 03/17/2020 3:04 Results for this ([facility]) AM REFUELING [employer]AMP SUPERVISOR procedure are in the results section. after 04/07/2019 Results BUN and Creatinine w/Ratio (03/19/2020 5:40 AM REFUELING RAMP SUPERVISOR) BUN 9 7 - 21 mg/dL [facility] Creatinine 0.91 0.57 - 1.25 [facility] mg/dL [facility] BUN/Creatinine 10 [facility] ratio Comment: [facility] For a normal individual on a normal diet, the reference interval for the mass ratio ranges between 12:1 and 20:1 (BUN in mg/dL/creatinine in mg/dL) EGFR 74Comment: mL/min/1.73 [facility] ESTIMATED GFR IS sq m [facility] NOT [facility] CREATININE CLEARANCE IN PREDICTING GLOMERULAR FILTRATION RATE. ESTIMATED GFR IS NOT APPLICABLE FOR DIALYSIS PATIENTS. Specimen Blood Performing Organization Address City/State/Zipcode Phone Number [facility] [address] [place] [address] CENTER CBC with platelet count + automated diff (03/19/2020 5:40 AM REFUELING R[employer] SUPERVISOR)Only the most recent of3 resultswithin the time period is included. Pathologist Sig nature WBC 12.5 (H) 3.5 - 10.5 [facility] K/L [facility] RBC 3.53 (L) 3.93 - 5.22 [facility] M/L [facility] Hemoglobin 9.7 (L) 11.2 - 15.7 [facility] GM/DL [facility] Hematocrit 30.0 (L) 34.1 - 44.9 % [facility] MCV 85.0 79.4 - 94.8 fL [facility] MCH 27.5 25.6 - 32.2 pg [facility] MCHC 32.3 32.2 - 35.5 [facility] GM/DL [facility] RDW 15.9 (H) 11.7 - 14.4 % [facility] Platelets 279 150 - 450 K/CU [facility] MM [facility] MPV 9.8 9.4 - 12.3 fL [facility] nRBC 0 0 - 0 /100 WBC [facility] % Neutros 73 % [facility] % Lymphs 20 % [facility] % Monos 5 % [facility] % Eos 0 % [facility] % Baso 0 % [facility] # Neutros 9.18 (H) 1.56 - 6.13 [facility] # Lymphs 2.54 1.18 - 3.74 [facility] # Monos 0.65 (H) 0.24 - 0.36 [facility] # Eos 0.04 0.04 - 0.36 [facility] # Baso 0.02 0.01 - 0.08 [facility] Immature 1 0 - 1 % [facility] Granulocytes-Relative [facility] Specimen Blood Performing Organization Address City/State/Zipcode Phone Number [facility] [address] [place] [address] CENTER Basic Metabolic Panel (03/19/2020 5:40 AM REFUELING RAMP SUPERVISOR)Only the most recent of4 results within the time period is included. Sodium 139 136 - 145 meq/L [facility] Potassium 3.9 3.5 - 5.1 meq/L [facility] Chloride 113 (H) 98 - 107 meq/L [facility] CO2 20 (L) 22 - 29 meq/L [facility] BUN 9 7 - 21 mg/dL [facility] Creatinine 0.91 0.57 - 1.25 [facility] mg/dL [facility] Glucose 86 70 - 105 mg/dL [facility] Calcium 7.9 (L) 8.4 - 10.2 [facility] mg/dL [facility] EGFR 74Comment: ESTIMATED mL/min/1.73 sq [facility] GFR IS NOT m [facility]UR[facility] [place] CREATININE CLEARANCE IN PREDICTING GLOMERULAR FILTRATION RATE. ESTIMATED GFR IS NOT APPLICABLE FOR DIALYSIS PATIENTS. Specimen Blood Narrative Performed At Bench Repair Technician ID - RENE Cheatham [facility] Performing Organization Address City/[facility]/Zipcode Phone Number [place] [phone] [place] [address] [place] Magnesium (03/18/2020 6:20 PM REFUELING R[employer] SUPERVISOR) Pathologist Sig nature Magnesium 2.0 1.6 - 2.6 mg/dL [facility] Specimen Blood - Entire left upper arm (body stru cture) Narrative Performed At Bench Repair Technician ID - DB [facility] Draw bloods from left arm Performing Organization Address City/[facility]/Zipcode Phone Number [facility] [address] [place] [address] CENTER FL fluoro non-specific up to 1 hour (03/17/2020 1:50 PM REFUELING RAMP SUPERVISOR) Specimen Narrative Performed At Fluoroscopic unit utilized for a procedure performed i n the OR. No GE RIS interpretation was requested. Refer to the operative report for findings. Refer to PACS for patient radiation dose i nformation. Procedure Note Interface, External Ris In - 03/17/2020 1:52 PM REFUELING RAMP SUPERVISOR Fluoroscopic unit utilized for a procedu re performed in the OR. No interpretation was requested. Refer to the operative r eport for findings. Refer to PACS for patient radiation dose information. Performing Organization Address [facility] Phone Number GE RIS Surgically obtained culture + gram stain (03/17/2020 1:15 PM REFUELING RAMP SUPERVISOR) Result No growth [facility] Gram Stain Result <1+ WBCs [facility] Gram Stain Result No organisms seen [facility] Specimen Body Fluid - Renal, Left Performing Organization Address [facility] Phone Number [address] [address] [place] SPIN/CONCENTRATION CHARGE (03/17/2020 1:15 PM REFUELING RAMP SUPERVISOR) Pathologist Sig nature Concentration charged Done [facility] Specimen Body Fluid - Renal, Left Performing Organization Address [facility] Phone Number [address] [address] [place] Screen, urine (03/17/2020 9:31 AM REFUELING RAMP SUPERVISOR) Pathologist Sig nature Preg Test, Ur Negative [facility] Specimen Urine Performing Organization Address [facility] Phone Number [address] [address] CENTER SARS-CoV2/RT-PCR (Asymptomatic ONLY) (03/17/2020 3:04 AM REFUELING RAMP SUPERVISOR) SARS-COV2/RT-PCR Negative Not Detected, [facility] Negative, See [facility] external report CENTER for linked test SARS-COV-2 [facility] PERFORMING LAB [facility] Specimen Other - Nasopharyngeal wall structure (b alexandr structure) Narrative Performed At Negative result for this test determines that [facility] SARS-CoV-2 RNA was not present in the specimen above the Limit of Detection (LOD). However, Negative results do not preclude SARS-CoV-2 infection and should not be used as the sole basis for treatment or patient management decisions. Negative results must be combined with clinical observations, patient history, and epidemiological information. A false negative result may occur if a specimen is improperly collected, transported or handled. A false negative result should be considered if patient's recent exposures or clinical presentation indicate that COVID-19 (SARS-CoV-2) is likely and diagnostic tests for other causes of illness are negative. Re-testing should be considered in cases of suspected false negatives. The limit of detection for this assay is 800 copies/mL. This SARS CoV-2 test is a real-time RT-PCR test intended for the qualitative detection of nucleic acid from SARS-CoV-2 in a nasopharyngeal swab specimen collected from individuals suspected of COVID-19 by their healthcare provider. This test has not been Food and Drug Administration (FDA) cleared or approved. This is a modified version of an approved Emergency Use Authorization (EUA) and is in the process of review by the FDA. Once authorized by the FDA, the issued EUA will be effective until the declaration that circumstances exist justifying the authorization of the emergency use of in vitro diagnostic tests for detection and/or diagnosis of COVID-19 is terminated under Section 564(b)(2) of the Act or the EUA is revoked under Section 564(g) of the Act. Fact Sheet for Healthcare Providers: https://www.[employer].com/sites/default/files/pro duct/documents/Fact_Sheet_HC_Providers_Lyra_SA RS-CoV-2.pdf Fact Sheet for Healthcare Patients: https://www.[employer].com/sites/default/files/pro duct/documents/Fact_Sheet_Patients_Lyra_SARS-C oV-2.pdf Performing Laboratory: [address] [place] [address] Performing Organization Address City/State/Zipcode Phone Number [address] [address] CENTER after 04/07/2019 Advance Directives For more information, please contact: [phone] Code Status Date Activated Date Inactivated Comments Full Code 03/17/2020 2:32 AM 03/19/2020 8:50 PM This code status was determined by: Patient
--- OUTSIDE RECORDS SUMMARY | 2020-04-07 10:08 | XMS REPORT | Continuity of Care Document ---
:1990 Author Organization [facility] t Address [address] [place] [address] Care Team Providers Name Role Phone KARIME ZAYAS Attending Clinician Unavailable Karime Zayas MD Attending Clinician Dar DOSS Attending Clinician Joya Cortes MD Attending Clinician Sachin Reed CRNA Attending Clinician Ольга DOSS Attending Clinician Pcp, Does Not Have A Attending Clinician Lab, Fam Pob I Attending Clinician Unavailable DAR Admitting Clinician Unavailable Problems Condition Condition Condition Status Onset Resolution Last Treating Co mments Source Name Details Category Date Date Treatment Clinician Date Hydronephr Hydronephr Disease Active [facility] Allergies, Adverse Reactions, Alerts This patient has no known allergies or adverse reactions. Social History Social Habit Start Date Stop Date Quantity Comments Source Sex Assigned At [facility] Exposure to Not sure [address] (event) Tobacco use and 2020-03-18 2020-03-[address] [facility] - exposure 00:00:00 [facility]:00 [facility] Alcohol intake 2020-03-18 2020-03-18 [facility] (finding[facility] Alcohol Comment 2020-03-17 2020-03-[address] [facility] - 00:00:00 00:00:00 [facility] Center Smoking Status Start Date Stop Date Source Never smoker [facility] Medications Ordered Filled Start Stop Current Ordering Indication Dosage Frequency Signature Comments Components Source Medication Medication Date Date Medication? Clinician (SIG) Name Name tamsulosin Yes .4mg QD Take 1 [facility] (FLOMAX) 1-20 capsule [facility] - 0.4 mg Cap 00:00: (0.4 mg Medi kvng 24 hr 00 total) by Center capsule mouth daily. levothyroxi 2020- No 125ug Take [address] ne -19 03-19 mcg by [facility] - (SYNTHROID, 16:50: 00:00 mouth Medi kvng LEVOTHROID) 36 :00 Every Center 125 MCG morning on tablet an empty stomach. levothyroxi Yes 125ug Take [address] ne 1-19 tablet [facility] - (SYNTHROID, 00:00: (125 mcg Me dical LEVOTHROID) 00 total) by [facility] 125 MCG mouth tablet Every morning on an empty stomach. oxybutynin 2021- Yes 5mg Take [address] (DITROPAN) 03-19 tablet (5 Saskia es - 5 MG tablet 00:00: 23:59 mg total) Medical 00 :00 by mouth 3 Center (three) times daily as needed (Bladder spasms). amoxicillin 2020- No 1{tbl} Q.5D Take [address] -clavulanat 03-19 tablet by Cynthia jain - e 00:00: 23:59 mouth 2 Medical (AUGMENTIN) 00 :00 (two) Center 875-125 mg times per tablet daily for 11 days. Vital Signs Vital Name Observation Time Observation Value Comments Source Systolic blood 2020-03-19 13:45:00 108 mm[Hg] [facility] Diastolic blood 2020-03-19 13:45:00 63 mm[Hg] [facility] Heart rate 2020-03-19 13:45:00 85 /min [facility] Body temperature 2020-03-19 13:45:00 36.72 Adrienne [facility] Respiratory rate 2020-03-19 13:45:00 13 /min [facility] Oxygen saturation in 2020-03-19 13:45:00 98 /min [facility] - Arterial blood by Medical Ce nter Pulse oximetry Body height 2020-03-17 02:18:00 175.3 cm [facility] Body weight 2020-03-17 02:18:00 117.935 kg [facility] BMI 2020-03-17 02:18:00 38.40 kg/m2 [facility] Procedures Procedure Date / Time Performed Performing Clinician Sour e BUN AND CREATININE 2020-03-19 05:40:00 [facility]ly [facility] - W/RATIO [facility] BASIC METABOLIC PANEL 2020-03-19 05:40:00 [facility] () [facility] CBC W/PLT COUNT & AUTO 2020-03-19 05:40:00 [facility] DIFFERENTIAL [facility] BASIC METABOLIC PANEL 2020-03-18 18:20:00 [facility] () [facility] MAGNESIUM 2020-03-18 18:20:00 [facility] CBC W/PLT COUNT & AUTO 2020-03-18 18:20:00 [facility] DIFFERENTIAL [facility] BASIC METABOLIC PANEL 2020-03-18 16:51:00 [facility] () [facility] FL FLUORO NON-SPECIFIC 2020-03-17 13:50:00 Geoff Rolon [facility] Joao Megan - UP TO 1 HOUR [facility] AFB CULTURE + SMEAR 2020-03-17 13:15:20 Ольга [facility] (NON-SPUTUM) [facility] FUNGUS CULTURE + SMEAR 2020-03-17 13:15:20 [place] SURGICALLY OBTAINED 2020-03-17 13:15:20 Ольга Geoff [facility] ukes - CULTURE + GRAM STAIN Medical [facility] SPIN/CONCENTRATION 2020-03-17 13:15:00 Ольга Geoff [facility] CYSTOSCOPY,RETROGRADES 2020-03-17 12:24:00 Ольга [facility] S t [facility] CYSTOSCOPY,INSERTION 2020-03-17 12:24:00 Ольга [facility] - URETERAL STENTS [facility] SCREEN, URINE 2020-03-17 09:31:00 Rocco Davies [facility] BASIC METABOLIC PANEL 2020-03-17 04:16:00 Corina Cherry [facility] (7) [facility] CBC W/PLT COUNT & AUTO 2020-03-17 04:16:00 Corina Cherry [facility] SARS-COV2/RT-PCR ([facility] & 2020-03-17 03:04:00 [facility] Plan of Care Planned Activity Planned Date Details Comments Source Future Scheduled 2020-03-[address] [facility] - Test 00:00:00 (12+) [code = [facility] DEPRESSION SCREENING (12+)] Future Scheduled 2019-10-[address] [facility] - Test 00:00:00 (#1) [code = [facility] INFLUENZA VACCINE (#1)] Future Scheduled 2017-02-11 DTAP/TDAP/TD VACCINES [facility] Test 00:00:00 (2 - Td) [code = Medical [facility] DTAP/TDAP/TD VACCINES (2 - Td)] Future Scheduled 2012-12-[address] [facility] - Test 00:00:00 malignant neoplasm of Medica l Center cervix (procedure) [code = 815941086] Future Scheduled [address] [facility] - Test 00:00:00 (procedure) [code = [facility] 79634447] Future Scheduled 2009-12-11 HEPATITIS C [facility]CRE[facility]ING [facility] Test 00:00:00 [code = HEPATITIS C [facility] SCREENING] Encounters Start End Encounter Admission Attending Care Care Encounter Source Date/Time Date/Time Type Type Clinicians Facility Department ID 2019-08-09 2019-08-09 Telephone Pcp, CHAVEZ [id number] 00:00:00 00:00:00 Patient ALIRIO [id number] Does Not HOSPITAL [id number] Have A [id number] 2019-08-07 2019-08-07 Export 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 Manager Lab, [facility] [id number] 14:13:30 14:23:[id number] [place] [id number] Professio [phone] nal [address] Results Test Description Test Time Test Comments Results Result Comments Source Surgically obtained culture + gram stain 2020-03-20 12:06:00 Test Item Value Reference Range Interpretation Comme nts Result (test code = 6463-4) No growth Gram Stain Result (test code = 1123) No organisms seen [facility] + GRAM [id number] 12:06:00 Test Item Value Reference Range Interpretation Comments CULTURE (BEAKER) (test code No growth = 1095) GRAM STAIN RESULT (BEAKER) <1+ WBCs (test code = 1123) GRAM STAIN RESULT (BEAKER) No organisms seen (test code = 22581) Basic Metabolic [id number] 09:53:00 Test Item Value Reference Range Interpretation Comments Sodium (test code = 139 meq/L 956-479 0560-2) Potassium (test code = 3.9 meq/L 3.5-5.1 2823-3) Chloride (test code = 113 meq/L 98-107 H 2075-0) CO2 (test code = 20 meq/L 22-29 L 2028-9) BUN (test code = 9 mg/dL 7-21 3094-0) Creatinine (test code 0.91 mg/dL 0.57-1.25 = 2160-0) Glucose (test code = 86 mg/dL 70-105 2345-7) Calcium (test code = 7.9 mg/dL 8.4-10.2 L 25567-8) EGFR (test code = 74 mL/min/1.73 [place] [address]-4) NOT ACCURATE CREATININE CLEARANCE IN PREDICTING GLOMERULAR FILTRATION RATE . ESTIMATED GFR I S NOT APPLICABLE FOR DIALYSIS PATIENTS. WILLIAMS (test code = WILLIAMS) Marketing Database Coordinator ID - RENE [place] Lab Interpretation Abnormal (test code = 83446-6) [facility] [id number] 09:53:00 Test Item Value Reference Range Interpretation Comments SODIUM (BEAKER) 139 meq/L 136-145 (test code = 381) POTASSIUM (BEAKER) 3.9 meq/L 3.5-5.1 (test code = 379) CHLORIDE (BEAKER) 113 meq/L 98-107 H (test code = 382) CO2 (BEAKER) (test 20 meq/L 22-29 L code = 355) BLOOD UREA NITROGEN 9 mg/dL 7-21 (BEAKER) (test code = 354) CREATININE (BEAKER) 0.91 mg/dL 0.57-1.25 (test code = 358) GLUCOSE RANDOM 86 mg/dL 70-105 (BEAKER) (test code = 652) CALCIUM (BEAKER) 7.9 mg/dL 8.4-10.2 L (test code = 697) EGFR (BEAKER) (test 74 mL/min/1.73 ESTIMA CHARLIE GFR IS code = 1092) sq m NOT ACCURATE CREATININE CLEARANCE IN PREDICTING GLOMERULAR FILTRATION RATE . ESTIMATED GFR I S NOT APPLICABLE FOR DIALYSIS PATIEN TS. Marketing Database Coordinator ID - RENE MBUN and Creatinine [id number] 09:13:00 Test Item Value Reference Range Interpretation Comments BUN (test code = 9 mg/dL 7-21 3094-0) Creatinine (test code 0.91 mg/dL 0.57-1.25 = 2160-0) BUN/Creatinine ratio 10 For a normal (test code = 3097-3) individ ual on a normal diet, th e reference inter carol for the mass ra thierno ranges between 12:1 and 20:1 (BUN i n mg/dL/creatinin e in mg/dL) EGFR (test code = 74 mL/min/1.73 [place] [address]-2) ACCURATE CREATININE AMANDA KURT IN PREDICTING GLOMERULAR FILT RATION RATE. ESTIMATED GFR IS NOT APPLICAB LE FOR DIALYSIS PATIEN TS. [facility] Center[facility] [id number] 09:13:00 Test Item Value Reference Range Interpretation Comments BLOOD UREA NITROGEN 9 mg/dL 7-21 (BEAKER) (test code = 354) CREATININE (BEAKER) 0.91 mg/dL 0.57-1.25 (test code = 358) BUN/CREAT RATIO 10 For a normal (BEAKER) (test code individu al on a = [id number]) normal diet, t he reference inter carol for the mass ra thierno ranges between 12:1 and 20:1 (BUN i n mg/dL/creatinin e in mg/dL) EGFR (BEAKER) (test 74 mL/min/1.73 ESTIMA CHARLIE GFR IS code = 1092) sq m NOT ACCURATE CREATININE CLEARANCE IN PREDICTING GLOMERULAR FILTRATION RATE . ESTIMATED GFR I S NOT APPLICABLE FOR DIALYSIS PATIEN TS. CBC with platelet count + automated [id number] 06:26:00 Test Item Value Reference Range Interpretation Comments WBC (test code = 6690-2) 12.5 3.5- 10.5 K/L H RBC (test code = 789-8) 3.53 3.93- 5.22 M/L L MCHC (test code = 786-4) 32.3 32.2- 35.5 GM/DL L Hematocrit (test code = 4544-3) 30.0 % 34.1-44.9 L MCV (test code = 787-2) 85.0 fL 79.4-94.8 MCH (test code = 785-6) 27.5 pg 25.6-32.2 RDW (test code = 788-0) 15.9 % 11.7-14.4 H Platelets (test code = 777-3) 279 150- 450 K/CU MM MPV (test code = 74880-8) 9.8 fL 9.4-12.3 nRBC (test code = 413) 0 0- 0 /100 WBC % Neutros (test code = 429) 73 % % Lymphs (test code = 430) 20 % % Monos (test code = 431) 5 % % Eos (test code = 432) 0 % % Baso (test code = 437) 0 % # Neutros (test code = 670) 9.18 1.56- 6.13 K/L H # Lymphs (test code = 414) 2.54 1.18- 3.74 K/L # Monos (test code = 415) 0.65 0.24- 0.36 K/L H # Eos (test code = 416) 0.04 0.04- 0.36 K/L # Baso (test code = 417) 0.02 0.01- 0.08 K/L Immature Granulocytes-Relative 1 % 0-1 (test code = 2801) Lab Interpretation (test code = Abnormal 58386-1) [facility] W/PLT COUNT & AUTO [id number] 06:26:00 Test Item Value Reference Range Interpretation Comments WHITE BLOOD CELL COUNT (BEAKER) 12.5 K/ L 3.5-10.5 H (test code = 775) RED BLOOD CELL COUNT (BEAKER) 3.53 M/ L 3.93-5.22 L (test code = 761) HEMOGLOBIN (BEAKER) (test code = 9.7 GM/DL 11.2-15.7 L 410) HEMATOCRIT (BEAKER) (test code = 30.0 % 34.1-44.9 L 411) MEAN CORPUSCULAR VOLUME (BEAKER) 85.0 fL 79.4-94.8 (test code = 753) MEAN CORPUSCULAR HEMOGLOBIN 27.5 pg 25.6-32.2 (BEAKER) (test code = 751) MEAN CORPUSCULAR HEMOGLOBIN CONC 32.3 GM/DL 32.2-35.5 (BEAKER) (test code = 752) RED CELL DISTRIBUTION WIDTH 15.9 % 11.7-14.4 H (BEAKER) (test code = 412) PLATELET COUNT (BEAKER) (test 279 K/CU MM 150-450 code = 756) MEAN PLATELET VOLUME (BEAKER) 9.8 fL 9.4-12.3 (test code = 754) NUCLEATED RED BLOOD CELLS 0 /100 WBC 0-0 (BEAKER) (test code = 413) NEUTROPHILS RELATIVE PERCENT 73 % (BEAKER) (test code = 429) LYMPHOCYTES RELATIVE PERCENT 20 % (BEAKER) (test code = 430) MONOCYTES RELATIVE PERCENT 5 % (BEAKER) (test code = 431) EOSINOPHILS RELATIVE PERCENT 0 % (BEAKER) (test code = 432) BASOPHILS RELATIVE PERCENT 0 % (BEAKER) (test code = 437) NEUTROPHILS ABSOLUTE COUNT 9.18 K/ L 1.56-6.13 H (BEAKER) (test code = 670) LYMPHOCYTES ABSOLUTE COUNT 2.54 K/ L 1.18-3.74 (BEAKER) (test code = 414) MONOCYTES ABSOLUTE COUNT (BEAKER) 0.65 K/ L 0.24-0.36 H (test code = 415) EOSINOPHILS ABSOLUTE COUNT 0.04 K/ L 0.04-0.36 (BEAKER) (test code = 416) BASOPHILS ABSOLUTE COUNT (BEAKER) 0.02 K/ L 0.01-0.08 (test code = 417) IMMATURE GRANULOCYTES-RELATIVE 1 % 0-1 PERCENT (BEAKER) (test code = 2801) BASIC METABOLIC [id number] 18:54:00 Test Item Value Reference Range Interpretation Comments SODIUM (BEAKER) 142 meq/L 136-145 (test code = 381) POTASSIUM (BEAKER) 3.7 meq/L 3.5-5.1 (test code = 379) CHLORIDE (BEAKER) 110 meq/L 98-107 H (test code = 382) CO2 (BEAKER) (test 22 meq/L 22-29 code = 355) BLOOD UREA NITROGEN 8 mg/dL 7-21 (BEAKER) (test code = 354) CREATININE (BEAKER) 0.84 mg/dL 0.57-1.25 (test code = 358) GLUCOSE RANDOM 82 mg/dL 70-105 (BEAKER) (test code = 652) CALCIUM (BEAKER) 8.5 mg/dL 8.4-10.2 (test code = 697) EGFR (BEAKER) (test 81 mL/min/1.73 ESTIMA CHARLIE GFR IS code = 1092) sq m NOT ACCURATE CREATININE CLEARANCE IN PREDICTING GLOMERULAR FILTRATION RATE . ESTIMATED GFR I S NOT APPLICABLE FOR DIALYSIS PATIEN TS. Marketing Database Coordinator ID - DBDraw bloods from left [id number] 18:52:00 Test Item Value Reference Range Interpretation Comments Magnesium (test code = 2.0 mg/dL 1.6-2.6 65626-2) WILLIAMS (test code = WILLIAMS) Marketing Database Coordinator ID - DBDraw bloods from left arm Lab Interpretation (test Normal code = 05571-2) [id number] 18:52:00 Test Item Value Reference Range Interpretation Comments MAGNESIUM (BEAKER) (test code = 2.0 mg/dL 1.6-2.6 627) Marketing Database Coordinator ID - DBDraw bloods [facility] AUTO DIFFERENTIAL 2020-03-18 18:35:00 Test Item Value Reference Range Interpretation Comments WHITE BLOOD CELL COUNT (BEAKER) 15.4 K/ L 3.5-10.5 H (test code = 775) RED BLOOD CELL COUNT (BEAKER) 3.73 M/ L 3.93-5.22 L (test code = 761) HEMOGLOBIN (BEAKER) (test code = 10.2 GM/DL 11.2-15.7 L 410) HEMATOCRIT (BEAKER) (test code = 31.9 % 34.1-44.9 L 411) MEAN CORPUSCULAR VOLUME (BEAKER) 85.5 fL 79.4-94.8 (test code = 753) MEAN CORPUSCULAR HEMOGLOBIN 27.3 pg 25.6-32.2 (BEAKER) (test code = 751) MEAN CORPUSCULAR HEMOGLOBIN CONC 32.0 GM/DL 32.2-35.5 L (BEAKER) (test code = 752) RED CELL DISTRIBUTION WIDTH 15.9 % 11.7-14.4 H (BEAKER) (test code = 412) PLATELET COUNT (BEAKER) (test 263 K/CU MM 150-450 code = 756) MEAN PLATELET VOLUME (BEAKER) 9.8 fL 9.4-12.3 (test code = 754) NUCLEATED RED BLOOD CELLS 0 /100 WBC 0-0 (BEAKER) (test code = 413) NEUTROPHILS RELATIVE PERCENT 83 % (BEAKER) (test code = 429) LYMPHOCYTES RELATIVE PERCENT 11 % (BEAKER) (test code = 430) MONOCYTES RELATIVE PERCENT 5 % (BEAKER) (test code = 431) EOSINOPHILS RELATIVE PERCENT 0 % (BEAKER) (test code = 432) BASOPHILS RELATIVE PERCENT 0 % (BEAKER) (test code = 437) NEUTROPHILS ABSOLUTE COUNT 12.72 K/ L 1.56-6.13 H (BEAKER) (test code = 670) LYMPHOCYTES ABSOLUTE COUNT 1.73 K/ L 1.18-3.74 (BEAKER) (test code = 414) MONOCYTES ABSOLUTE COUNT (BEAKER) 0.71 K/ L 0.24-0.36 H (test code = 415) EOSINOPHILS ABSOLUTE COUNT 0.00 K/ L 0.04-0.36 L (BEAKER) (test code = 416) BASOPHILS ABSOLUTE COUNT (BEAKER) 0.03 K/ L 0.01-0.08 (test code = 417) IMMATURE GRANULOCYTES-RELATIVE 1 % 0-1 PERCENT (BEAKER) (test code = 2801) BASIC METABOLIC [id number] 17:20:00 Test Item Value Reference Range Interpretation Comments SODIUM (BEAKER) 146 meq/L 136-145 H (test code = 381) POTASSIUM (BEAKER) 2.4 meq/L 3.5-5.1 LL (test code = 379) CHLORIDE (BEAKER) 126 meq/L 98-107 H (test code = 382) CO2 (BEAKER) (test 15 meq/L 22-29 L code = 355) BLOOD UREA NITROGEN 6 mg/dL 7-21 L (BEAKER) (test code = 354) CREATININE (BEAKER) 0.55 mg/dL 0.57-1.25 L (test code = 358) GLUCOSE RANDOM 61 mg/dL 70-105 L (BEAKER) (test code = 652) CALCIUM (BEAKER) 5.0 mg/dL 8.4-10.2 LL (test code = 697) EGFR (BEAKER) (test 132 mL/min/1.73 ESTIM ATED GFR IS code = 1092) sq m NOT ACCURATE CREATININE CLEARANCE IN PREDICTING GLOMERULAR FILTRATION RATE . ESTIMATED GFR I S NOT APPLICABLE FOR DIALYSIS PATIEN TS. Marketing Database Coordinator ID - BSSPIN/CONCENTRATION [id number] 14:19:00 Test Item Value Reference Range Interpretation Comments Concentration charged (test code = Done 2657) [facility] CenterPIN[facility]CONCENTRATION [id number] 14:19:00 Test Item Value Reference Range Interpretation Comments CONCENTRATION CHARGED (BEAKER) (test Done code = 2657) FL, FLUORO, NON-SPECIFIC, UP TO 1 [id number] 13:50:00Reason for exam:- >[facility] : 1990 Sex: FFluoroscopic unit utilized for a procedure performed in the OR. No interpretation was requested. Refer to the operative report for findings. Refer to PACS for patient radiation dose information.FL fluoro non-specific up to 1 [id number] 13:50:00 Interface, External Ris In 03/17/2020 1:52 PM CSTFluoroscopic unit utilized for a procedure performed in the OR. No interpretation was requested. Refer to the operative report for findings. Referto PACS for patient radiation dose information.[facility] CenterARS-CoV2/RT-PCR (Asymptomatic ONLY) 2020-03-17 13:04:00 Test Item Value Reference Range Interpretation Comments SARS-COV2/RT-PCR Negative Not Detected, (test code = Negative, See 33540-9) external report for linked test SARS-COV-2 [facility] PERFORMING LAB (test code = 78737-1) WILLIAMS (test code = Negative result for this WILLIAMS) test determines that SARS-CoV-2 RNA was not present in the [...] of the Act. Fact Sheet for Healthcare Providers:https://www.[employer]/sites/default/f elliot/product/documents/F act_Sheet_HC_Providers_L pji_FAVC-LsG-9.pdf Fact Sheet for Healthcare Patients:https://www.[employer].com/sites/default/fi les/product/documents/Fa ct_Sheet_Patients_Lyra_S ARS-CoV-2.pdf Performing Laboratory:[facility] [place] [address].[place], [place] [address] [place], [place] [address]ARS-COV2/RT-PCR ([facility] & REF LABS)2020-03-17 13:04:00 Test Item Value Reference Range Interpretation Comments SARS-COV2/RT-PCR (test Negative Not Detected, Negative, code = 0132928) See external report for linked test SARS-COV-2 PERFORMING LAB [facility] (test code = 7592673) Negative result for this test determines that SARS-CoV-2 RNA was not present in the specimen above the Limit of Detection (LOD). However, Negative results do not preclude SARS-CoV-2 infection and should not be used as the sole basis for treatment or patient management decisions. Negative results mustbe combined with clinical observations, patient history, and epidemiological information. A false negative result may occur if a specimen is improperly collected, transported or handled. A false negative result should be considered if patient's recent exposures or clinical presentation indicate that COVID-19 (SARS-CoV-2) is likely and diagnostic tests for other causes of illness are negative. Re-testing should be considered in cases of suspected false negatives.The limit of detection for this assay is 800 copies/mL.This SARS CoV-2 test is a real-time RT-PCR test intended for the qualitative detection of nucleic acid from SARS-CoV-2 in a nasopharyngeal swab specimen collected from individuals susp ected of COVID-19 by their healthcare provider.This test has not been Food and Drug [...] is revoked under Section 564(g) of the Act.Fact Sheet for Healthcare Providers:https://www.[employer]/sites/default/files/product/documents/Fact_Shee f_TB_Diqebuhqd_Kkum_NCDW-SjV-5.pdfFact Sheet for Healthcare Patients:https://www.[employer]/sites/default/files/product/ documents/Kddr_Wslwd_Cqinmbnr_Ryvg_CQHI-ArD-9.pdfPerforming Laboratory:[place] [address], [place] [address]Gakxeemwh Screen, [id number] 10:06:00 Test Item Value Reference Range Interpretation Comments Preg Test, Ur (test code = 2112-1) Negative [facility] CenterPREGNANCY SCREEN, [id number] 10:06:00 Test Item Value Reference Range Interpretation Comments TEST URINE (BEAKER) (test Negative code = 583) CBC W/PLT COUNT & AUTO [id number] 06:52:00 Test Item Value Reference Range Interpretation Comments WHITE BLOOD CELL COUNT (BEAKER) 16.8 K/ L 3.5-10.5 H (test code = 775) RED BLOOD CELL COUNT (BEAKER) 3.81 M/ L 3.93-5.22 L (test code = 761) HEMOGLOBIN (BEAKER) (test code = 10.4 GM/DL 11.2-15.7 L 410) HEMATOCRIT (BEAKER) (test code = 32.1 % 34.1-44.9 L 411) MEAN CORPUSCULAR VOLUME (BEAKER) 84.3 fL 79.4-94.8 (test code = 753) MEAN CORPUSCULAR HEMOGLOBIN 27.3 pg 25.6-32.2 (BEAKER) (test code = 751) MEAN CORPUSCULAR HEMOGLOBIN CONC 32.4 GM/DL 32.2-35.5 (BEAKER) (test code = 752) RED CELL DISTRIBUTION WIDTH 15.3 % 11.7-14.4 H (BEAKER) (test code = 412) PLATELET COUNT (BEAKER) (test 283 K/CU MM 150-450 code = 756) MEAN PLATELET VOLUME (BEAKER) 9.7 fL 9.4-12.3 (test code = 754) NUCLEATED RED BLOOD CELLS 0 /100 WBC 0-0 (BEAKER) (test code = 413) NEUTROPHILS RELATIVE PERCENT 91 % (BEAKER) (test code = 429) LYMPHOCYTES RELATIVE PERCENT 4 % (BEAKER) (test code = 430) MONOCYTES RELATIVE PERCENT 4 % (BEAKER) (test code = 431) EOSINOPHILS RELATIVE PERCENT 0 % (BEAKER) (test code = 432) BASOPHILS RELATIVE PERCENT 0 % (BEAKER) (test code = 437) NEUTROPHILS ABSOLUTE COUNT 15.35 K/ L 1.56-6.13 H (BEAKER) (test code = 670) LYMPHOCYTES ABSOLUTE COUNT 0.60 K/ L 1.18-3.74 L (BEAKER) (test code = 414) MONOCYTES ABSOLUTE COUNT (BEAKER) 0.68 K/ L 0.24-0.36 H (test code = 415) EOSINOPHILS ABSOLUTE COUNT 0.00 K/ L 0.04-0.36 L (BEAKER) (test code = 416) BASOPHILS ABSOLUTE COUNT (BEAKER) 0.02 K/ L 0.01-0.08 (test code = 417) IMMATURE GRANULOCYTES-RELATIVE 1 % 0-1 PERCENT (BEAKER) (test code = 2801) BASIC METABOLIC [id number] 06:44:00 Test Item Value Reference Range Interpretation Comments SODIUM (BEAKER) 137 meq/L 136-145 (test code = 381) POTASSIUM (BEAKER) 3.4 meq/L 3.5-5.1 L (test code = 379) CHLORIDE (BEAKER) 107 meq/L 98-107 (test code = 382) CO2 (BEAKER) (test 20 meq/L 22-29 L code = 355) BLOOD UREA NITROGEN 10 mg/dL 7-21 (BEAKER) (test code = 354) CREATININE (BEAKER) 1.08 mg/dL 0.57-1.25 (test code = 358) GLUCOSE RANDOM 105 mg/dL 70-105 (BEAKER) (test code = 652) CALCIUM (BEAKER) 8.1 mg/dL 8.4-10.2 L (test code = 697) EGFR (BEAKER) (test 60 mL/min/1.73 ESTIMA CHARLIE GFR IS code = 1092) sq m NOT ACCURATE CREATININE CLEARANCE IN PREDICTING GLOMERULAR FILTRATION RATE . ESTIMATED GFR I S NOT APPLICABLE FOR DIALYSIS PATIEN TS. Marketing Database Coordinator CHRISTIANO Sylvester
[2020-04-07 11:16] LABS: Urine Blood 3+ (NEG); Urine Glucose NEGATIVE (NEG); Urine Protein 3+ (NEG)
[2020-04-07] MEDS ORDERED: CEFTRIAXONE/SWI 1gm 1 GM/10 ML SYR ONE (11:43)
[2020-04-07 12:06] LABS: Basophils % 0.3 % (0-1.3); Hematocrit 27.1 % (36.0-45.0); Lymphocytes % 14.1 % (15.3-44.8); RBC Red Blood Cell Count 3.33 M/uL (3.86-4.86)
[2020-04-07] MEDS ORDERED: NA CHLORIDE 0.9% 1,000 ML ONE (12:12)
[2020-04-07 12:25] LABS: Potassium 3.7 mmol/L (3.5-5.1)
--- NOTE | 2020-04-07 12:27 | RAD REPORT ---
EXAM DESCRIPTION: CT - Stone Protocol - 04/07/2020 12:00 pm CLINICAL HISTORY: Flank pain. recent ureteral stones and bilatera stent placement, +UTI COMPARISON: Stone Protocol dated 03/16/2020 TECHNIQUE: Axial images were obtained without oral or IV contrast. Lack of contrast limits solid org an and vascular assessment. The [id number] spans the entirety of the system partially obscuring uppermost abdomen and lung bases. Coronal reformatted images were obtained and reviewed. All CT scans are performed using dose optimization technique as appropriate and may include automated exposure control or mA/KV adjustment according to patient size. FINDINGS: The lower lung stratton are clear. Imaged portions of the liver and spleen show no suspicious findings on non-contrast imaging. The panc reas and adrenal glands are normal. No pathologic lymphadenopathy in the abdomen or pelvis. Bilateral double-J stents are in place without hydronephrosis. Multiple stones are present in the kvng ices of both kidneys, largest right mid-pole calyx measuring 7 mm. No stone is seen along the course of either stent. No bowel obstruction, free air, free fluid or abscess. Normal appendix noted.IUD is in place. No significant bony abnormality. IMPRESSION: Bilateral double-J stents are in place. Stents are in expected alignment and positioning . No hydronephrosis. Bilateral caliceal nephrolithiasis is present. No stone is seen along the course of either stent.
--- NOTE | 2020-04-07 12:32 | EDPHYS ---
Physician Documentation [facility] Name: Zelda Davalos Age: 29 yrs Sex: Female : 1990 Arrival Date: 04/07/2020 Time: 10:06 Bed 19 Private MD: ED Physician [address] HPI: 04/07 10:19 This 29 yrs old Female presents to ER via Unassigned with complaints of rn Nausea, muscle aches, congestion, Headache > 24hrs Old. 10:20 Reports 3 days of headache, nausea, congestion, muscle aches and fatigue. Began on day rn of pre-op , is supposed to get ureteral stents removed this next Wednesday, was swabbed for covid that day. Comes in today because still doesn't feel well. No cough/sob/chest pain. No urinary problems. . Onset: The symptoms/episode began/occurred 3 day(s) ago. Severity of symptoms: At their worst the symptoms were mild in the emergency department the symptoms are unchanged. The patient has not experienced similar symptoms in the past. The patient has been recently seen by a physician:. 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 - Family history:: not pertinent. - Social history:: Smoking status: . - Hospitalizations: : No recent hospitalization is reported. ROS: 10:20 Constitutional: + chills, + low grade fever to tmax 100 Eyes: Negative for injury, rn pain, redness, and discharge, ENT: + congestion Neck: Negative for injury, pain, and swelling, Cardiovascular: Negative for chest pain, palpitations, and edema, Respiratory: Negative for shortness of breath, cough, wheezing, and pleuritic chest pain, Abdomen/GI: Negative for abdominal pain,vomiting, diarrhea, and constipation, + decreased appetite MS/Extremity: Negative for injury and deformity, Skin: Negative for injury, rash, and discoloration, Neuro: Negative for numbness, tingling, and seizure. Exam: 10:20 Constitutional: This is a well developed, well nourished patient who is awake, alert, rn and in no acute distress. Head/Face: Normocephalic, atraumatic. ENT: dry MM, no swelling or stridor Neck: Trachea midline, no thyromegaly or masses palpated, and no cervical lymphadenopathy. Supple, full range of motion without nuchal rigidity, or vertebral point tenderness. No Meningismus. Cardiovascular: Tachycardic, regular Respiratory: No increased work of breathing, no retractions or nasal flaring. Abdomen/GI: soft, non-tender Skin: Warm, dry MS/ Extremity: Pulses equal, no cyanosis. Neuro: Awake and alert, GCS 15 Vital Signs: 10:08 BP 108 / 79; Pulse 111; Resp 17; Temp 98.2(O); Pulse Ox 97% on R/A; Weight 117.93 kg; tw2 Height 5 ft. 9 in. (175.26 cm); 10:59 BP 107 / 69; Pulse 95; Resp 18; Pulse Ox 97% on R/A; tw2 12:04 BP 111 / 75; Pulse 96; Resp 17; Pulse Ox 98% on R/A; tw2 13:17 BP 106 / 74; Pulse 80; Resp 16; Pulse Ox 100% on R/A; zb 10:08 Body Mass Index 38.39 (117.93 kg, 175.26 cm) tw2 MDM: 10:10 Patient medically screened. rn 11:39 ED course: Pt feels better, tachycardia resolved, + UTI, culture from pre-op visit on rn 04/04 shows e. coli and susceptibility pattern, given rocephin. Pt feels like has "passed a few stones" since stent placement, and denies flank pain. Reports Dr. Mcgraw did not put in the stents, were placed in [place], will obtain blood and CT stone protocol to evaluate further for pyelo vs obstructive process, if ok will dc home with abx according to susceptibility pattern obtained on 04/04. . 12:30 Differential Diagnosis obstructive process with pyelo, UTI, COVID, flu. Data reviewed: rn vital signs, nurses notes, lab test result(s), radiologic studies, CT scan, and as a result, I will discharge patient. Counseling: I had a detailed discussion with the patient and/or guardian regarding: the historical points, exam findings, and any diagnostic results supporting the discharge/admit diagnosis, lab results, radiology results, the need for outpatient follow up, to return to the emergency department if symptoms worsen or persist or if there are any questions or concerns that arise at home. Response to treatment: the patient's symptoms have markedly improved after treatment, and as a result, I will discharge patient. Special discussion: I discussed with the patient/guardian in detail that at this point there is no indication for admission to the hospital. It is understood, however, that if the symptoms persist or worsen the patient needs to return immediately for re-evaluation. Based on the history and exam findings, there is no indication for further emergent testing or inpatient evaluation. I discussed with the patient/guardian the need to see the urologist for further evaluation of the symptoms. ED course: No stones in stents/ureter, no hydronephrosis, + UTI, will dc home with abx. . 04/07 10:27 Order name: Flu 04/07 10:27 Order name: Strep 04/07 10:28 Order name: Influenza Screen (A ; Complete Time: 12:30 EDND 04/07 10:28 Order name: Group A Streptococcus Rapid Sc; Complete Time: 12:30 [facility] 04/07 11:01 Order name: Urine Dipstick--Ancillary (enter results); Complete Time: 11:28 [facility] 04/07 11:01 Order name: Urine --Ancillary (enter results); Complete Time: 11:28 [facility] 04/07 11:32 Order name: Throat Culture EDND 04/07 11:38 Order name: CBC with Diff; Complete Time: 12:30 04/07 11:38 Order name: Basic Metabolic Panel; Complete Time: 12:30 04/07 11:38 Order name: Procalcitonin 04/07 11:38 Order name: CT Stone Protocol; Complete Time: 12:30 04/07 10:19 Order name: IV Start; Complete Time: 10:39 rn 04/07 10:29 Order name: Urine Test (obtain specimen); Complete Time: 10:54 rn 04/07 10:29 Order name: Urine Dipstick-Ancillary (obtain specimen); Complete Time: 10:54 rn Administered Medications: 10:35 Drug: Zofran (Ondansetron) 4 mg Route: IVP; Site: right antecubital; tw2 11:33 Follow up: Response: No adverse reaction; Nausea is decreased tw2 10:35 Drug: NS 0.9% 1000 ml Route: IV; Rate: 1000 ml; Site: right antecubital; tw2 11:33 Follow up: Response: No adverse reaction; IV Status: Completed infusion; IV Intake: tw2 1000ml 11:25 Drug: Rocephin 1 grams Route: IV; Rate: calculated rate; Site: right antecubital; tw2 11:33 Follow up: Response: No adverse reaction; IV Status: Completed infusion; IV Intake: [id number] 12:02 Drug: NS 0.9% 1000 ml Route: IV; Rate: 1000 ml; Site: right antecubital; tw2 13:10 Follow up: Response: No adverse reaction; IV Status: Completed infusion; IV Intake: zb 1000ml Disposition: 04/07/20 12:31 Discharged to Home. Impression: Urinary tract infection, site not specified. - Condition is Stable. - Discharge Instructions: Urinary Tract Infection, Adult. - Prescriptions for Zofran ODT 4 mg Oral tablet,disintegrating - place 1 tablet by TRANSLINGUAL route every 8 hours As needed; 20 tablet. cefpodoxime 100 mg Oral Tablet - take 2 tablet by ORAL route every 12 hours for 10 days take with food; 40 tablet. - Medication Reconciliation Form, Thank You Letter, Antibiotic Education, Prescription Opioid Use form. - Follow up: Private Physician; When: 1 - 2 days; Reason: Recheck today's complaints, Re-evaluation by your physician. - Problem is new. - Symptoms have improved. Signatures: Dispatcher [employer] EDND [address] MD MD rn Wise, Tara, RN RN tw2 Chelly Meléndez RN RN zb Corrections: (The following items were deleted from the chart) 13:23 12:31 04/07/2020 12:31 Discharged to Home. Impression: Urinary tract infection, site zb not specified. Condition is Stable. Forms are Medication Reconciliation Form, Thank You Letter, Antibiotic Education, Prescription Opioid Use. Follow up: Private Physician; When: 1 - 2 days; Reason: Recheck today's complaints, Re-evaluation by your physician. Problem is new. Symptoms have improved. rn
--- NOTE | 2020-04-07 12:32 | ER ---
Nurse's Notes [facility] Name: Zelda Daavlos Age: 29 yrs Sex: Female : 1990 Arrival Date: 04/07/2020 Time: 10:06 Bed 19 Private MD: Diagnosis: Urinary tract infection, site not specified Presentation: 04/07 10:08 Chief complaint: Patient states: i have chills, nausea, fever congestion since tw2 . Coronavirus screen: chills, fatigue, nausea, Client presents with at least one sign or symptom that may indicate coronavirus-19. Standard/surgical mask placed on the client. Provider contacted for isolation considerations. Ebola Screen: Patient denies travel to an Ebola-affected area in the 21 days before illness onset. Initial Sepsis Screen: Does the patient meet any 2 criteria? HR > 90 bpm. Does the patient have a suspected source of infection? No. Patient's initial sepsis screen is negative. Risk Assessment: Do you want to hurt yourself or someone else? Patient reports no desire to harm self or others. Onset of symptoms was April 07, 2020. 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 - Family history:: not pertinent. - Social history:: Smoking status: . - Hospitalizations: : No recent hospitalization is reported. Screenin:44 Abuse screen: Denies threats or abuse. Nutritional screening: No deficits noted. tw2 Tuberculosis screening: No symptoms or risk factors identified. Fall Risk None identified. Assessment: 10:31 Reassessment: pt in restroom at this time. tw2 10:35 General: Appears in no apparent distress. Behavior is calm, cooperative, appropriate tw2 for age. Pain: Complains of pain in forehead, right zoroastrian and left zoroastrian. Neuro: Level of Consciousness is awake, alert, obeys commands, Oriented to person, place, time, situation. Cardiovascular: Capillary refill < 3 seconds. Respiratory: Airway is patent Respiratory effort is even, unlabored, Respiratory pattern is regular, symmetrical. GI: Abdomen is round non-distended, Reports intolerance of fluids, nausea. : No signs and/or symptoms were reported regarding the genitourinary system. EENT: No signs and/or symptoms were reported regarding the EENT system. Derm: No signs and/or symptoms reported regarding the dermatologic system. Derm: Reports increased chills body aches, sweating off and on. Musculoskeletal: Range of motion: intact in all extremities. 10:57 : Urine is cloudy, gema urine noted. tw2 11:34 Reassessment: provider at bedside at this time. tw2 12:03 Reassessment: Patient appears in no apparent distress at this time. Patient and/or tw2 family updated on plan of care and expected duration. Pain level reassessed. Patient is alert, oriented x 3, equal unlabored respirations, skin warm/dry/pink. Patient states feeling better. Patient states symptoms have improved. 12:13 General: Appears in no apparent distress. comfortable, obese, well groomed, Behavior is zb calm, cooperative, appropriate for age. Pain: Complains of pain in left mid back and right mid back Pain does not radiate. Pain currently is 3 out of 10 on a pain scale. Quality of pain is described as aching. Neuro: Level of Consciousness is awake, alert, obeys commands, Oriented to person, place, time, situation. Cardiovascular: Heart tones S1 S2 present Capillary refill < 3 seconds Patient's skin is warm and dry. Respiratory: Airway is patent Respiratory effort is even, unlabored, Respiratory pattern is regular, symmetrical. GI: Abdomen is round non-distended, obese, Reports diarrhea. : Reports dysuria. EENT: No signs and/or symptoms were reported regarding the EENT system. Derm: No signs and/or symptoms reported regarding the dermatologic system. Musculoskeletal: Circulation, motion, and sensation intact. Range of motion: intact in all extremities. 13:17 Reassessment: Patient appears in no apparent distress at this time. Patient and/or zb family updated on plan of care and expected duration. Pain level reassessed. Patient is alert, oriented x 3, equal unlabored respirations, skin warm/dry/pink. pt states she is feeling lot better. d/c instructions given. gait steady and even. Vital Signs: 10:08 BP 108 / 79; Pulse 111; Resp 17; Temp 98.2(O); Pulse Ox 97% on R/A; Weight 117.93 kg; tw2 Height 5 ft. 9 in. (175.26 cm); 10:59 BP 107 / 69; Pulse 95; Resp 18; Pulse Ox 97% on R/A; tw2 12:04 BP 111 / 75; Pulse 96; Resp 17; Pulse Ox 98% on R/A; tw2 13:17 BP 106 / 74; Pulse 80; Resp 16; Pulse Ox 100% on R/A; zb 10:08 Body Mass Index 38.39 (117.93 kg, 175.26 cm) tw2 ED Course: 10:06 Patient arrived in ED. ag5 10:[address] MD is Attending Physician. rn 10:15 Patient has correct armband on for positive identification. Bed in low position. Call mh5 light in reach. Side rails up X 1. Pulse ox on. NIBP on. 10:20 Loreta Nance RN is Primary Nurse. tw2 10:22 Triage completed. tw2 10:35 Inserted saline lock: 20 gauge in right antecubital area, using aseptic technique. tw2 10:58 Strep Sent. tw2 10:58 Flu Sent. tw2 11:01 Arm band placed on. tw2 11:54 Procalcitonin Sent. iw 11:54 Basic Metabolic Panel Sent. iw 11:54 CBC with Diff Sent. iw 12:00 CT Stone Protocol In Process Unspecified. EDMS 12:05 Report given to NAKUL Martinez. tw2 13:18 No provider procedures requiring assistance completed. IV discontinued, intact, zb bleeding controlled, No redness/swelling at site. Pressure dressing applied. Administered Medications: 10:35 Drug: Zofran (Ondansetron) 4 mg Route: IVP; Site: right antecubital; tw2 11:33 Follow up: Response: No adverse reaction; Nausea is decreased tw2 10:35 Drug: NS 0.9% 1000 ml Route: IV; Rate: 1000 ml; Site: right antecubital; tw2 11:33 Follow up: Response: No adverse reaction; IV Status: Completed infusion; IV Intake: tw2 1000ml 11:25 Drug: Rocephin 1 grams Route: IV; Rate: calculated rate; Site: right antecubital; tw2 11:33 Follow up: Response: No adverse reaction; IV Status: Completed infusion; IV Intake: [id number] 12:02 Drug: NS 0.9% 1000 ml Route: IV; Rate: 1000 ml; Site: right antecubital; tw2 13:10 Follow up: Response: No adverse reaction; IV Status: Completed infusion; IV Intake: zb 1000ml Intake: 11:33 IV: 10ml; Total: 10ml. tw2 11:33 IV: 1000ml; Total: 1010ml. tw2 13:10 IV: 1000ml; Total: 2010ml. zb Outcome: 12:31 Discharge ordered by . rn 13:18 Discharged to home ambulatory. zb 13:18 Condition: stable 13:18 Discharge instructions given to patient, Instructed on discharge instructions, follow up and referral plans. medication usage, Demonstrated understanding of instructions, follow-up care, medications, Prescriptions given X 2. 13:23 Patient left the ED. zb Signatures: Dispatcher [employer] Meseret Bill, RN [place] MD MD rn Wise, Tara, RN RN 2 [address] [facility] [place] Chelly Preciado RN RN zb
[2020-04-07 13:36] VITALS: TEMP 98.2
[2020-04-07 13:40] VITALS: BP 106/74; O2SAT 100
== END 2020-04-07 13:23 | disposition home or self-care (01) ==
LOC: ER 10:05
DX: N39.0 Urinary tract infection, site not specified (principal)
CPT/HCPCS: 36415; 74176; 76377; 80048; 81003; 81025; 84145; 85025; 87070; 87081; 87804; 96361; 96374; 96375; 99284; J0696; J7030

== ENCOUNTER 2020-04-09 07:08 | Day surgery (SDC) | payer SELFPAY ==
[2020-04-04 16:34] LABS: Urine Appearance TURBID; Urine Bilirubin NEGATIVE (NEG); Urine Blood 3+ (NEG); Urine Color YELLOW; Urine Glucose NEGATIVE (NEG); Urine Protein 2+ (NEG); Urine Specific Gravity 1.015 (1.005-1.030); Urine Urobilinogen 0.2 mg/dL (0.2-1.0); Urine pH 6.5 (5.0-7.0)
[2020-04-04 16:36] LABS: Urine Microscopic Reflex ORDER UMIC
[2020-04-04 16:38] LABS: Protime INR 1.18
[2020-04-04 16:45] LABS: Urine Bacteria >50 /HPF (<20); Urine RBC LOADED /HPF (NONE SEEN)
[~2020-04-09 07:08] MED LIST: CEFTRIAXONE/SWI 1gm 1 GM/10 ML SYR IV SCH
[2020-04-09] MEDS ORDERED: Ringers Lactate 1,000 ML IV ONE ×2 (08:02→10:40)
[2020-04-09] MEDS ORDERED: dexAMETHasone 10 MG/ML VIAL ONE (08:11)
[2020-04-09] MEDS ORDERED: propofoL 200 MG/20 ML VIAL IV ONE (08:11)
[2020-04-09] MEDS ORDERED: FENTANYL CITR 100 MCG/2 ML ONE (08:11)
[2020-04-09] MEDS ORDERED: KETOROLAC 30 MG/ML INJ ONE (08:11)
[2020-04-09] MEDS ORDERED: MIDAZOLAM HCL 2 MG/2 ML INJ ONE (08:11)
[2020-04-09] MEDS ORDERED: LIDOCAINE 1% MPF 5 ML VIAL ONE (08:12)
[2020-04-09] MEDS ORDERED: ONDANSETRON 4 MG/2 ML VIAL ONE ×2 (08:12→11:42)
[2020-04-09] MEDS ORDERED: FENTANYL CITR 250 MCG/5 ML ONE (10:13)
--- NOTE | 2020-04-09 11:27 | RAD REPORT ---
EXAM DESCRIPTION: RAD - Urethrocystogrphy Retrograde - 04/09/2020 11:11 am CLINICAL HISTORY: ICD N 20.0 FINDINGS: Twenty-four fluoroscopic spot images obtained. Fluoroscopy time 0.23 minutes Each ureter were cannulated and contrast administered. Examination was performed by Dr Mcgraw. Cinda e refer to his report for additional findings
[2020-04-09] MEDS ORDERED: PHENAZOPYRIDINE 100MG TAB PO ONE (11:35)
[2020-04-09] MEDS ORDERED: HYDROCODONE/APAP 5/325 MG TAB PO PRN (11:35)
--- NOTE | 2020-04-09 12:40 | OP ---
Surgeon: LILIANE WEINBERG Preoperative Diagnoses: 1.Bilateral nephrolithiasis. 2.Bilateral ureteral stents in place. 3.Left ureterolithiasis, approximately 7 mm. Postoperative Diagnoses: 1.Bilateral nephrolithiasis. 2.Bilateral ureteral stents in place. 3.Left ureterolithiasis, approximately 7 mm with right nephrolithiasis between 6-8 mm, multiple calc erlinda and left nephrolithiasis with Fabricio's plaques and multiple calculi between 2-4 mm in diameter. 4.Left ureteral calculus, 7 mm in diameter. Principle Procedures: 1.Cystoscopy. 2.Bilateral retrograde pyelography. 3.Bilateral ureteroscopy, laser lithotripsy, stent exchange. Indication For Procedure: Ms. Davalos presented septic to the emergency department and was managed by bilateral ureteral stent placements because of an obstructing distal left ureteral calculus and th e presence of significant volume bilateral nephrolithiasis. She presents today for definitive manage ment of her stones and is on cefuroxime after having presented to the emergency department with signs of complicated UTI with a stent in place. Procedure In Detail: The patient was consented in the preoperative holding area before being transfe rred to the operative suite where general anesthesia was induced. She was given ceftriaxone 1 g IV a ntimicrobial prophylaxis, pneumoboots were provided for DVT prophylaxis. She was placed in the litho virginie position, padded and secured to the table appropriately. Her genitalia were prepped using Hibic lens and she was draped in standard fashion. The case was begun using a 22-Albanian rigid cystoscope t o traverse the urethra into the bladder with ease. The stents were noted to emanate from the bilater al ureteral orifices, and the right stent was grasped initially and delivered via the meatus. Using fluoroscopic guidance, a Sensor wire was placed up the stent and coiled in the putative collecting sy stem on the right side. I then reinserted the cystoscope and grasped the left ureteral stent, which was similarly delivered via the meatus and fluoroscopic guidance was used to pass a second Sensor wir e into the collecting system on the left side. I then placed a dual-lumen catheter over the left Sen sor wire and placed it into the mid distal ureter. A retrograde pyelogram was then performed. Left retrograde pyelography: Using a 70:30 mixture of Omnipaque and saline, contrast mixture was injected via the second lumen of the dual-lumen catheter and did delineate the intraluminal location suggestive of adequate positionin g of the wire. The calices and pelvis of the kidney did delineate respectively with a wire coiled in the upper pole. I thus passed a Bentson guidewire via the second lumen of the dual-lumen catheter a nd did coil alongside the indwelling safety wire. I then removed the dual-lumen catheter and passed over the Bentson guidewire and the flexible ureteroscope. Left ureteroscopy and laser lithotripsy: Using a 272 nm laser fiber and holmium laser settings of 0.8 joules and 12-15 hertz, stones identifie d within the upper pole posterior, mid pole, and lower pole anterior were identified and carefully fr agmented to dust smaller than 1 mm in diameter. Some Fabricio's plaques were also identified and were disrupted from their calyceal location. Once the kidney had been completely surveyed and all stones were then managed, I then surveyed the renal pelvis down through the proximal and mid ureter before encountering in the distal ureter just before reaching the UVJ. The 7 mm left distal ureteral calcul us initially causing obstruction and sepsis. I then used the laser fiber to quickly fragment the 7 m m calculus into dust again smaller than 1 mm in size. I then removed the ureteroscope and turned my attention to the right side. I again placed the dual-lumen catheter over the indwelling right Sensor wire into the mid distal uret er and performed a retrograde pyelogram. Right retrograde pyelography: Using the 70:30 mixture of Omnipaque and saline, I injected the contrast via the second lumen of the dual-lumen catheter and observed did propagate of the lumen of the ureter and into the renal pelvis w ith ease delineating the calices appropriately. The Sensor wire was appropriately within the upper p ole of the kidney. I then placed a Bentson guidewire via the second lumen of the dual-lumen catheter alongside the indwelling safety wire into the upper pole of the kidney. I then removed the dual-lum en catheter and placed the flexible ureteroscope over the Bentson guidewire into the upper pole of th e kidney as observed fluoroscopically. Right ureteroscopy and laser lithotripsy: Again, using a 272 nm laser fiber with previously described holmium laser settings, I surveyed the up per pole of the kidney where no significant calculi were noted. I then moved into the mid pole calic es of the kidney where anteriorly, there was a significant stone burden approximately 8-10 mm in diam eter. I then spent some time fragmenting the stone into dust small enough to easily pass less than 1 mm or around the size of the 200 nm laser fiber. I then surveyed from the pelvis into the lower mayra e calices where no additional stone fragments were noted other than a small Fabricio's plaque, which w as also disrupted and fragmented. I then surveyed down through the pelvis and upper portion of the u reter into the mid and distal portion of the ureter where a formed flat calculus was observed within the distal ureter that was approximately 4-5 mm in length. I then used the holmium laser fiber at a power settings of 0.8 and 8 to fragment that to dust before removing the ureteroscope and completing your ureteroscopy. I then backloaded the cystoscope over the indwelling safety wire first for the ri ght collecting system and passed a 6-Albanian x 26 cm double-J stent. I then observed a coil fluorosco pically within the upper pole of the kidney and 1 cystoscopically within the bladder. I turned my at tention to the left side where I again backloaded the cystoscope over the indwelling safety wire and passed a 6-Albanian x 26 cm double-J ureteral stent into the upper pole of the left kidney again with a coil observed fluoroscopically. An additional coil was observed cystoscopically within the bladder, and the case was completed. I decompressed her bladder of fluid and urine and collected some stone material, which would be sent for chemical analysis. The case was completed, and the patient was jared kened from general anesthesia before being transferred to a stretcher and then to the recovery room i n good condition. Complications: None. Discharge Disposition: She will follow up in the Urology Clinic in the next 1-2 weeks for cystoscopy and bilateral ureteral stent extractions. She should continue her antimicrobial therapy prescribed in the emergency department pe nding stent extraction. BERNARDO/BRITNEY Voice ID: [id number] Report ID: [id number]
[2020-04-09 13:25] VITALS: TEMP 97
[2020-04-09 13:28] VITALS: BP 107/76; O2SAT 97
--- OUTSIDE RECORDS SUMMARY | 2020-04-10 02:52 | XMS REPORT | Clinical Summary ---
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 Last Filed Vital Signs Vital Sign Reading Time Taken Comments Blood Pressure 108/63 03/19/2020 1:45 PM ANTICHECKING IRON WORKER Pulse 85 03/19/2020 1:45 PM ANTICHECKING IRON WORKER Temperature 36.7 C (98.1 F) 03/19/2020 1:45 PM ANTICHECKING IRON WORKER Respiratory Rate 13 03/19/2020 1:45 PM ANTICHECKING IRON WORKER Oxygen Saturation 98% 03/19/2020 1:45 PM ANTICHECKING IRON WORKER Inhaled Oxygen Concentration - - Weight 117.9 kg (260 lb) 03/17/2020 2:18 AM ANTICHECKING IRON WORKER Height 175.3 cm (5' 9") 03/17/2020 2:18 AM ANTICHECKING IRON WORKER Body Mass Index 38.4 03/17/2020 2:18 AM ANTICHECKING IRON WORKER Plan of Treatment Health Maintenance Due Date Last Done Comments HEPATITIS C SCREENING 12/11/2009 LIPID PANEL 2011 CERVICAL CANCER SCREENING PAP ONLY (Age 21-65) 12/11/2012 DTAP/TDAP/TD VACCINES (2 - Td) 02/11/2017 01/14/2017 INFLUENZA VACCINE (#1) 2019 DEPRESSION SCREENING (12+) 03/01/2020 Implants Implanted Type Area Clinical Appeals Reviewer Device Shelf Model / Identifier Expiration Serial / Date Lot Set Stent Injection 6x26cm [id number] - [id number] Left: [place] 07/23/2021 [id number] / Implanted: Qty: 1 on 03/17/2020 by Geoff Oneill MD at [facility] [employer] / [id number] Set Stent Injection 6x26cm [id number] - [id number] Right: JANICE 07/23/2021 [id number] / Implanted: Qty: 1 on 03/17/2020 by Geoff Oneill MD at [facility] [employer] / [id number] Procedures Procedure Name Priority Date/Time Associated Comments Diagnosis CBC W/PLT COUNT & Routine 03/19/2020 5:40 Result s for this AUTO DIFFERENTIAL AM ANTICHECKING IRON WORKER procedure are in the results section. BASIC METABOLIC PANEL Routine 03/19/2020 5:40 Re sults for this (7) AM ANTICHECKING IRON WORKER procedure are i n the results section. CBC W/PLT COUNT & Routine 03/19/2020 5:40 Result s for this AUTO DIFFERENTIAL AM ANTICHECKING IRON WORKER procedure are in the results section. BUN AND CREATININE Routine 03/19/2020 5:40 Resul ts for this W/RATIO AM ANTICHECKING IRON WORKER procedure are i n the results section. CBC W/PLT COUNT & STAT 03/18/2020 6:20 Result s for this AUTO DIFFERENTIAL PM ANTICHECKING IRON WORKER procedure are in the results section. MAGNESIUM STAT 03/18/2020 6:20 Results for this PM ANTICHECKING IRON WORKER procedure are i n the results section. BASIC METABOLIC PANEL STAT 03/18/2020 6:20 Re sults for this (7) PM ANTICHECKING IRON WORKER procedure are i n the results section. CBC W/PLT COUNT & STAT 03/18/2020 6:20 Result s for this AUTO DIFFERENTIAL PM ANTICHECKING IRON WORKER procedure are in the results section. BASIC METABOLIC PANEL STAT 03/18/2020 4:51 Re sults for this (7) PM ANTICHECKING IRON WORKER procedure are i n the results section. FL FLUORO Routine 03/17/2020 1:50 Results for this NON-SPECIFIC UP TO 1 PM ANTICHECKING IRON WORKER procedu re are in HOUR the results section. SURGICALLY OBTAINED Routine 03/17/2020 1:15 Resu lts for this CULTURE + GRAM STAIN PM ANTICHECKING IRON WORKER procedu re are in the results section. FUNGUS CULTURE + Routine 03/17/2020 1:15 SMEAR PM ANTICHECKING IRON WORKER AFB CULTURE + SMEAR Routine 03/17/2020 1:15 (NON-SPUTUM) PM ANTICHECKING IRON WORKER SPIN/CONCENTRATION Routine 03/17/2020 1:15 Resul ts for this CHARGE PM ANTICHECKING IRON WORKER procedure are i n the results section. CYSTOSCOPY,INSERTION 03/17/2020 12:[address] one URETERAL STENTS PM ANTICHECKING IRON WORKER CYSTOSCOPY,RETROGRADE 03/17/2020 12:24 Left ureteral s tone S PM ANTICHECKING IRON WORKER SCREEN, STAT 03/17/2020 9:31 Result s for this URINE AM ANTICHECKING IRON WORKER procedure are i n the results section. CBC W/PLT COUNT & Routine 03/17/2020 4:16 Result s for this AUTO DIFFERENTIAL AM ANTICHECKING IRON WORKER procedure are in the results section. CBC W/PLT COUNT & Routine 03/17/2020 4:16 Result s for this AUTO DIFFERENTIAL AM ANTICHECKING IRON WORKER procedure are in the results section. BASIC METABOLIC PANEL Routine 03/17/2020 4:16 Re sults for this (7) AM ANTICHECKING IRON WORKER procedure are i n the results section. SARS-COV2/RT-PCR Routine 03/17/2020 3:04 Results for this ([facility]) AM ANTICHECKING IRON WORKER procedure are in the results section. after 04/09/2019 Results BUN and Creatinine w/Ratio (03/19/2020 5:40 AM ANTICHECKING IRON WORKER) BUN 9 7 - 21 mg/dL [facility] Creatinine 0.91 0.57 - 1.25 [facility] mg/dL [facility] BUN/Creatinine 10 [facility] ratio Comment: [facility] For a normal individual on a normal diet, the reference interval for the mass ratio ranges between 12:1 and 20:1 (BUN in mg/dL/creatinine in mg/dL) EGFR 74Comment: mL/min/1.73 [facility] ESTIMATED GFR IS sq m [facility] NOT ACCURATE [facility]ENTER CREATININE CLEARANCE IN PREDICTING GLOMERULAR FILTRATION RATE. ESTIMATED GFR IS NOT APPLICABLE FOR DIALYSIS PATIENTS. Specimen Blood Performing Organization Address City/State/Zipcode Phone Number [facility] [address] [place] [address] CENTER CBC with platelet count + automated diff (03/19/2020 5:40 AM ANTICHECKING IRON WORKER)Only the most recent of3 resultswithin the time period is included. Pathologist Sig nature WBC 12.5 (H) 3.5 - 10.5 [facility] K/L [facility] RBC 3.53 (L) 3.93 - 5.22 [facility] M/L [facility] Hemoglobin 9.7 (L) 11.2 - 15.7 [facility] GM/DL [facility] Hematocrit 30.0 (L) 34.1 - 44.9 % [facility] MCV 85.0 79.4 - 94.8 fL [facility] MCH 27.5 25.6 - 32.2 pg [facility] MCHC 32.3 32.2 - 35.5 [facility] GM/DL [facility] RDW 15.9 (H) 11.7 - 14.4 % [facility] Platelets 279 150 - 450 K/CU [facility] MM [facility] MPV 9.8 9.4 - 12.3 fL [facility] nRBC 0 0 - 0 /100 WBC [facility] % Neutros 73 % [facility] % Lymphs 20 % [facility] % Monos 5 % [facility] % Eos 0 % [facility] % Baso 0 % [facility] # Neutros 9.18 (H) 1.56 - 6.13 [facility] # Lymphs 2.54 1.18 - 3.74 [facility] # Monos 0.65 (H) 0.24 - 0.36 [facility] # Eos 0.04 0.04 - 0.36 [facility] # Baso 0.02 0.01 - 0.08 [facility] Immature 1 0 - 1 % [facility] Granulocytes-Relative [facility] Specimen Blood Performing Organization Address City/State/Zipcode Phone Number [facility] [address] [place] [address] CENTER Basic Metabolic Panel (03/19/2020 5:40 AM ANTICHECKING IRON WORKER)Only the most recent of4 results within the time period is included. Sodium 139 136 - 145 meq/L [facility] Potassium 3.9 3.5 - 5.1 meq/L [facility] Chloride 113 (H) 98 - 107 meq/L [facility] CO2 20 (L) 22 - 29 meq/L [facility] BUN 9 7 - 21 mg/dL [facility] Creatinine 0.91 0.57 - 1.25 [facility] mg/dL [facility] Glucose 86 70 - 105 mg/dL [facility] Calcium 7.9 (L) 8.4 - 10.2 [facility] mg/dL [facility] EGFR 74Comment: ESTIMATED mL/min/1.[address] [facility] GFR IS NOT m [facility] [place] CREATININE CLEARANCE IN PREDICTING GLOMERULAR FILTRATION RATE. ESTIMATED GFR IS NOT APPLICABLE FOR DIALYSIS PATIENTS. Specimen Blood Narrative Performed At Manager Mechanical Maintenance ID - RENE Cheatham [facility] Performing Organization Address City/[facility]/Zipcode Phone Number [place] [phone] [place] [address] [place] Magnesium (03/18/2020 6:20 PM ANTICHECKING IRON WORKER) Pathologist Sig nature Magnesium 2.0 1.6 - 2.6 mg/dL [facility] Specimen Blood - Entire left upper arm (body stru cture) Narrative Performed At Manager Mechanical Maintenance ID - DB [facility] Draw bloods from left arm Performing Organization Address City/[facility]/Zipcode Phone Number [facility] [address] [place] [address] CENTER FL fluoro non-specific up to 1 hour (03/17/2020 1:50 PM ANTICHECKING IRON WORKER) Specimen Narrative Performed At Fluoroscopic unit utilized for a procedure performed i n the OR. No GE RIS interpretation was requested. Refer to the operative report for findings. Refer to PACS for patient radiation dose i nformation. Procedure Note Interface, External Ris In - 03/17/2020 1:52 PM ANTICHECKING IRON WORKER Fluoroscopic unit utilized for a procedu re performed in the OR. No interpretation was requested. Refer to the operative r eport for findings. Refer to PACS for patient radiation dose information. Performing Organization Address [facility] Phone Number GE RIS Surgically obtained culture + gram stain (03/17/2020 1:15 PM ANTICHECKING IRON WORKER) Result No growth [facility] Gram Stain Result <1+ WBCs [facility] Gram Stain Result No organisms seen [facility] Specimen Body Fluid - Renal, Left Performing Organization Address [facility] Cent[facility] Phone Number [address] [address] [place] SPIN/CONCENTRATION CHARGE (03/17/2020 1:15 PM ANTICHECKING IRON WORKER) Pathologist Sig nature Concentration charged Done [facility] Specimen Body Fluid - Renal, Left Performing Organization Address [facility] Phone Number [address] [address] [place] Screen, urine (03/17/2020 9:31 AM ANTICHECKING IRON WORKER) Pathologist Sig nature Preg Test, Ur Negative [facility] Specimen Urine Performing Organization Address [facility] Phone Number [address] [address] CENTER SARS-CoV2/RT-PCR (Asymptomatic ONLY) (03/17/2020 3:04 AM ANTICHECKING IRON WORKER) SARS-COV2/RT-PCR Negative Not Detected, [facility] Negative, See [facility] external report CENTER for linked test SARS-COV-2 [facility] CAIO [facility] PERFORMING LAB [facility] Specimen Other - Nasopharyngeal wall structure (b alexandr structure) Narrative Performed At Negative result for this test determines that [facility] SARS-CoV-2 RNA was not present in the [...] the Act. Fact Sheet for Healthcare Providers: https://www.[employer].com/sites/default/files/pro duct/documents/Fact_Sheet_HC_Providers_Lyra_SA RS-CoV-2.pdf Fact Sheet for Healthcare Patients: https://www.[employer].com/sites/default/files/pro duct/documents/Fact_Sheet_Patients_Lyra_SARS-C oV-2.pdf Performing Laboratory: [address] [place] [address] Performing Organization Address City/State/Zipcode Phone Number [address] [address] CENTER after 04/09/2019 Advance Directives For more information, please contact: [phone] Code Status Date Activated Date Inactivated Comments Full Code 03/17/2020 2:32 AM 03/19/2020 8:50 PM This code status was determined by: Patient
--- OUTSIDE RECORDS SUMMARY | 2020-04-10 02:53 | XMS REPORT | Continuity of Care Document ---
:1990 Author Organization [facility] t Address [address] [place] [address] Care Team Providers Name Role Phone KARIME [...] Date Quantity Comments Source Sex Assigned At [facility] Exposure to Not sure [facility] SARS-CoV2 [facility] (event) Tobacco use and 2020-03-18 2020-03-18 Never used [facility] - exposure 00:00:00 00:00:00 Medical Center Alcohol intake 2020-03-18 2020-03-18 [facility] (finding) [facility] Alcohol Comment 2020-03-17 2020-03-[address] [facility] - 00:[facility]00 00:[facility]:00 [facility] Center Smoking Status Start Date Stop Date Source Never sm[facility] Medications Ordered [...] No 125ug Take [address] [facility] 03-19 mcg by [facility] - (SYNTHROID, 16:50: 00:00 mouth Medi kvng LEVOTHROID) 36 :00 Every Center 125 MCG morning on tablet an empty stomach. levothyroxi Yes 125ug Take [address] [facility] - tablet [facility] - (SYNTHROID, 00:00: (125 mcg Me dical LEVOTHROID) 00 total) by [facility] 125 MCG mouth tablet Every morning on [...] Center Diastolic blood 2020-03-19 13:45:00 63 mm[Hg] [facility] pressure [facility] Heart rate 2020-03-19 13:45:00 85 /min [facility] Body temperature 2020-03-19 13:45:00 36.72 Adrienne [facility] Respiratory rate 2020-03-19 13:45:00 13 /min [facility] Oxygen saturation in 2020-03-19 13:45:00 98 /min [facility] - Arterial blood by Medical Ce nter Pulse oximetry Body height 2020-03-17 02:18:00 175.3 cm [facility] Body weight 2020-03-17 02:18:00 117.935 kg [facility] BMI 2020-03-17 02:18:00 38.40 kg/m2 [facility] Procedures Procedure Date / Time Performed Performing Clinician Sour e BUN AND CREATININE 2020-03-19 05:40:00 [facility] CBC W/PLT COUNT & AUTO 2020-03-19 [facility]:40[facility] BASIC METABOLIC PANEL 2020-03-19 05:40:00 [facility] (7) [facility] CBC W/PLT COUNT & AUTO 2020-03-18 18:20:00 [facility] DIFFERENTIAL [facility] BASIC METABOLIC PANEL 2020-03-18 18:20:00 Psychiatric hospital () [facility] MAGNESIUM 2020-03-18 18:20:00 [facility] BASIC METABOLIC PANEL 2020-03-18 16:51:00 Psychiatric hospital () [facility] FL FLUORO NON-SPECIFIC 2020-03-17 13:50:00 [facility] Medical [employer] CULTURE + SMEAR 2020-03-17 13:15:20 Geoff Rolon [facility] (NON-SPUTUM) [facility] FUNGUS CULTURE + SMEAR 2020-03-17 13:15:20 Geoff Rolon [facility] SURGICALLY OBTAINED 2020-03-17 13:15:[address] [facility] - CULTURE + GRAM STAIN Medical [facility] ter SPIN/CONCENTRATION 2020-03-17 13:15:00 Geoff Rolon [facility] CYSTOSCOPY,RETROGRADES 2020-03-17 12:24:00 Geoff Rolon [facility] CYSTOSCOPY,INSERTION 2020-03-17 12:24:00 Geoff Rolon [facility] - URETERAL STENTS [facility] SCREEN, URINE 2020-03-17 09:31:00 Rocco Davies [facility] BASIC METABOLIC PANEL 2020-03-17 04:16:[address] [facility] (7) [facility] CBC W/PLT COUNT & AUTO 2020-03-17 04:16:00 Corina Cherry [facility] SARS-COV2/RT-PCR ([facility] & 2020-03-17 03:04:00 Rocco Davies [facility] - REF LABS) [facility] Plan of Care Planned Activity Planned Date Details Comments Source Future Scheduled 2020-03-[address] [facility] - Test 00:00:00 (12+) [code = [facility] DEPRESSION SCREENING (12+)] Future Scheduled 2019-10-[address] [facility] - Test 00:00:00 (#1) [code = [facility] INFLUENZA VACCINE (#1)] Future Scheduled 2017-02-11 DTAP/TDAP/TD VACCINES [facility] Test 00:00:00 (2 - Td) [code = [facility] DTAP/TDAP/TD VACCINES (2 - Td)] Future Scheduled 2012-12-[address] [facility] - Test 00:00:00 malignant neoplasm of Medica l Center cervix (procedure) [code = 609574261] Future Scheduled [address] [facility] - Test 00:00:00 (procedure) [code = [facility] 40734595] Future Scheduled 2009-12-11 HEPATITIS C [facility]CRE[facility]ING [facility] Test 00:00:00 [code = HEPATITIS C [facility] SCREENING] Encounters Start End Encounter Admission Attending Care Care Encounter Source Date/Time Date/Time Type Type Clinicians Facility Department ID 2019-08-09 2019-08-09 Telephone Pcp, CHAVEZ [id number] 00:00:00 00:00:00 Patient ALIRIO [id number] Does Not HOSPITAL [id number] Have A [id number] 2019-08-07 2019-08-07 Intervention Specialist Lab, [facility] [id number] 14:13:30 14:23:30 Visit Fam Pob [facility] [id number] [place] [id number] Professio [phone] [address] Results Test Description Test Time Test Comments Results Result Comments Source Surgically obtained culture + gram stain 2020-03-20 12:06:00 Test Item Value Reference Range Interpretation Comme nts Result (test code = 6463-4) No growth Gram Stain Result (test code = 1123) No organisms seen [facility] + GRAM [id number] 12:06:00 Test Item Value Reference Range Interpretation Comments CULTURE (BEAKER) (test code No growth = 1095) GRAM STAIN RESULT (BEAKER) <1+ WBCs (test code = 1123) GRAM STAIN RESULT (BEAKER) No organisms seen (test code = 11734) Basic Metabolic [id number] 09:53:00 Test Item Value Reference Range Interpretation Comments Sodium (test code = 139 meq/L 362-052 9107-2) Potassium (test code = 3.9 meq/L 3.5-5.1 2823-3) Chloride (test code = 113 meq/L 98-107 H 2075-0) CO2 (test code = 20 meq/L 22-29 L 2028-9) BUN (test code = 9 mg/dL 7-21 3094-0) Creatinine (test code 0.91 mg/dL 0.57-1.25 = 2160-0) Glucose (test code = 86 mg/dL 70-105 2345-7) Calcium (test code = 7.9 mg/dL 8.4-10.2 L 88402-4) EGFR (test code = 74 mL/min/1.73 [place] [address]-8) NOT ACCURATE CREATININE CLEARANCE IN PREDICTING GLOMERULAR FILTRATION RATE . ESTIMATED GFR I S NOT APPLICABLE FOR DIALYSIS PATIENTS. WILLIAMS (test code = WILLIAMS) Unit Educator ID - RENE M Lab Interpretation Abnormal (test code = 94433-7) [facility] [id number] 09:53:00 Test Item Value Reference Range Interpretation [...] S NOT APPLICABLE FOR DIALYSIS PATIEN TS. Unit Educator ID - RENE MBUN and Creatinine [id number] 09:13:00 Test Item Value Reference Range Interpretation [...] [place] [address]-9) ACCURATE CREATININE AMANDA KURT IN PREDICTING GLOMERULAR FILT RATION RATE. ESTIMATED GFR IS NOT APPLICAB LE FOR DIALYSIS PATIEN TS. [facility] Center[facility] [id number] 09:13:00 Test Item Value Reference Range Interpretation Comments BLOOD UREA NITROGEN 9 mg/dL 7-21 (BEAKER) (test code = 354) CREATININE (BEAKER) 0.91 mg/dL 0.57-1.25 (test code = 358) BUN/CREAT RATIO 10 For a normal (BEAKER) (test code individu al on a = 1189701921) normal diet, t he reference inter carol [...] TS. CBC with platelet count + automated [id number] 06:26:00 Test Item Value Reference Range Interpretation Comments WBC (test code = 6690-2) 12.5 See_Comment H [A utomated message] The system Yabidu generated this result transmitted ref erence range: 3.5 - 10 .5 K/L. The refe rence range was not u sed to interpret this result as normal/abnor mal. RBC (test code = 789-8) 3.53 See_Comment L [Au tomated message] The system Yabidu generated this result transmitted ref erence range: 3.93 - 5 .22 M/L. The refe rence range was not u sed to interpret this result as normal/abnor mal. MCHC (test code = 786-4) 32.3 See_Comment L [A utomated message] The system Yabidu generated this result transmitted ref erence range: 32.2 - 3 5.5 GM/DL. The refe rence range was not u sed to interpret this result as normal/abnor mal. Hematocrit (test code = 30.0 % 34.1-44.9 L 4544-3) MCV (test code = 787-2) 85.0 fL 79.4-94.8 MCH (test code = 785-6) 27.5 pg 25.6-32.2 RDW (test code = 788-0) 15.9 % 11.7-14.4 H Platelets (test code = 279 See_Comment [Aut omated message] 777-3) The system Yabidu generated this result transmitted ref erence range: 150 - 45 0 K/CU MM. The referen ce range was not u sed to interpret this result as normal/abnor mal. MPV (test code = 9.8 fL 9.4-12.3 19542-3) nRBC (test code = 413) 0 See_Comment [Aut omated message] The system Yabidu generated this result transmitted ref erence range: 0 - 0 /1 00 WBC. The refere nce range was not u sed to interpret this result as normal/abnor mal. % Neutros (test code = 73 % 429) % Lymphs (test code = 20 % 430) % Monos (test code = 5 % 431) % Eos (test code = 432) 0 % % Baso (test code = 437) 0 % # Neutros (test code = 9.18 See_Comment H [Aut omated message] 670) The system Yabidu generated this result transmitted ref erence range: 1.56 - 6 .13 K/L. The refe rence range was not u sed to interpret this result as normal/abnor mal. # Lymphs (test code = 2.54 See_Comment [Auto mated message] 414) The system Yabidu generated this result transmitted ref erence range: 1.18 - 3 .74 K/L. The refe rence range was not u sed to interpret this result as normal/abnor mal. # Monos (test code = 0.65 See_Comment H [Autom ated message] 415) The system Yabidu generated this result transmitted ref erence range: 0.24 - 0 .36 K/L. The refe rence range was not u sed to interpret this result as normal/abnor mal. # Eos (test code = 416) 0.04 See_Comment [Au tomated message] The system Yabidu generated this result transmitted ref erence range: 0.04 - 0 .36 K/L. The refe rence range was not u sed to interpret this result as normal/abnor mal. # Baso (test code = 417) 0.02 See_Comment [A utomated message] The system Yabidu generated this result transmitted ref erence range: 0.01 - 0 .08 K/L. The refe rence range was not u sed to interpret this result as normal/abnor mal. Immature 1 % 0-1 Granulocytes-Relative (test code = 2801) Lab Interpretation (test Abnormal code = 93051-1) [facility] W/PLT COUNT & AUTO [id number] 06:26:00 Test Item Value Reference Range Interpretation [...] (BEAKER) (test code = 2801) BASIC METABOLIC [id number] 18:54:00 Test Item Value Reference Range Interpretation [...] S NOT APPLICABLE FOR DIALYSIS PATIEN TS. Unit Educator ID - DBDraw bloods from left [id number] 18:52:00 Test Item Value Reference Range Interpretation Comments Magnesium (test code = 2.0 mg/dL 1.6-2.6 80536-4) WILLIAMS (test code = WILLIAMS) Unit Educator ID - DBDraw bloods from left arm Lab Interpretation (test Normal code = 18293-2) [id number] 18:52:00 Test Item Value Reference Range Interpretation Comments MAGNESIUM (BEAKER) (test code = 2.0 mg/dL 1.6-2.6 627) Unit Educator ID - DBDraw bloods from left armCBC W/PLT COUNT & AUTO DIFFERENTIAL 2020-03-18 18:35:00 [...] (BEAKER) (test code = 2801) BASIC METABOLIC [id number] 17:20:00 Test Item Value Reference Range Interpretation [...] S NOT APPLICABLE FOR DIALYSIS PATIEN TS. Unit Educator ID - BSSPIN/CONCENTRATION [id number] 14:19:00 Test Item Value Reference Range Interpretation Comments Concentration charged (test code = Done 2657) [facility] [id number] 14:19:00 Test Item Value Reference Range Interpretation Comments CONCENTRATION CHARGED (BEAKER) (test Done code = 2657) FL, FLUORO, NON-SPECIFIC, UP TO 1 [id number] 13:50:00Reason for exam:- >[facility] : 1990 Sex: FFluoroscopic unit utilized for a procedure performed in the OR. No interpretation was requested. Refer to the operative report for findings. Refer to PACS for patient radiation dose information.FL fluoro non-specific up to 1 [id number] 13:50:00 Interface, External Ris In 03/17/2020 1:52 PM CSTFluoroscopic unit utilized for a procedure performed in the OR. No interpretation was requested. Refer to the operative report for findings. Referto PACS for patient radiation dose information.[facility]/RT-PCR (Asymptomatic ONLY) 2020-03-17 13:04:00 Test Item Value Reference Range Interpretation Comments SARS-COV2/RT-PCR Negative Not Detected, (test code = Negative, See 37898-9) external report for linked test SARS-COV-2 [facility] PERFORMING LAB (test code = 17480-7) WILLIAMS (test code = Negative result for [...] of the Act. Fact Sheet for Healthcare Providers:https://www.[employer]/sites/default/f elliot/product/documents/F act_Sheet_HC_Providers_L rfd_FDRB-PbH-7.pdf Fact Sheet for Healthcare Patients:https://www.Addepar/sites/default/fi les/product/documents/Fa ct_Sheet_Patients_Lyra_S ARS-CoV-2.pdf Performing Laboratory:[facility], [place] [address] [place], [place] [address]ARS-COV2/RT-PCR ([facility])2020-03-17 13:04:00 Test Item Value Reference Range Interpretation Comments SARS-COV2/RT-PCR (test Negative Not Detected, Negative, code = 9907366) See external report for linked test SARS-COV-2 PERFORMING LAB [facility] (test code = 3092693) Negative result for this test determines that [...] 564(g) of the Act.Fact Sheet for Healthcare Providers:https://www.[employer]/sites/default/files/product/documents/Fact_Shee e_SP_Lkgdmzaoq_Fnqo_MFKQ-JyR-8.pdfFact Sheet for Healthcare Patients:https://www.[employer]/sites/default/files/product/ documents/Nxkd_Iyypc_Raboddph_Agey_IFPY-HtH-3.pdfPerforming Laboratory:[place] [address], [place] [address]Sfrutjfue Screen, [id number] 10:06:00 Test Item Value Reference Range Interpretation Comments Preg Test, Ur (test code = 2112-1) Negative [facility] CenterPREGNANCY SCREEN, [id number] 10:06:00 Test Item Value Reference Range Interpretation Comments TEST URINE (BEAKER) (test Negative code = 583) CBC W/PLT COUNT & AUTO [id number] 06:52:00 Test Item Value Reference Range Interpretation [...] (BEAKER) (test code = 2801) BASIC METABOLIC [id number] 06:44:00 Test Item Value Reference Range Interpretation [...] S NOT APPLICABLE FOR DIALYSIS PATIEN TS. Unit Educator CHRISTIANO - TREY Sylvester
== END 2020-04-09 12:25 | disposition home or self-care (01) ==
LOC: OR 07:08
PROVIDERS: ATTEND Urology
PROC: 0TF6XZZ Fragmentation in Right Ureter, External Approach (ICD-10-PCS; 2020-04-09)
PROC: 0T788DZ Dilation of Bilateral Ureters with Intraluminal Device, Via Natural or Artificial Opening Endoscopic (ICD-10-PCS; 2020-04-09)
PROC: 0TF7XZZ Fragmentation in Left Ureter, External Approach (ICD-10-PCS; principal; 2020-04-09 08:45)
DX: N20.2 Calculus of kidney with calculus of ureter (principal); E03.9 Hypothyroidism, unspecified; Z20.822 Contact with and (suspected) exposure to COVID-19
CPT/HCPCS: 36415; 51610; 74450; 81003; 81015; 81025; 82360; 85610; 87070; 87077; 87086; 87088; 87186; 88300; 93005; J0696; J1100; J2250; J2405; J2704; J3010; J7120; U0002

== ENCOUNTER 2021-02-20 21:57 | Emergency (ER) | payer OTHER ==
--- OUTSIDE RECORDS SUMMARY | 2021-02-20 22:00 | XMS REPORT | Continuity of Care Document ---
:1990 Author Organization [facility] t Address [address] [place] [address] Care Team Providers Name Role Phone KARIME ZAYAS Attending Clinician Unavailable Pcp, Does Not Have A Attending Clinician GERARDO Attending Clinician Unavailable Lab, Fam Pob I Attending Clinician Unavailable Gerardo STONE LATHE OPERATOR Attending Clinician KARIME ZAYAS Admitting Clinician Unavailable DAR Admitting Clinician Unavailable Problems Condition Condition Condition Status Onset Resolution Last Treating Co mments Source Name Details Category Date Date Treatment Clinician Date Obesity Obesity Disease Active Univers (BMI (BMI 1-16 ity of 30-39.9) 30-39.9) 00:00: [address] Anemia Anemia Disease Active Univers 1-05 ity of 00:00: [address] 41 weeks 41 weeks Disease Active Unive rs gestation gestation 1-04 ity of of of 00:00: [place] 00 [facility] Liveborn Liveborn Disease Active Unive rs by by 1-04 ity of 00:00: [address] Post term Post term Disease Active Uni vers 1-03 ity of at 41 at 41 00:00: [place] weeks weeks 00 Medical gestation gestation Bran ch Unfavorabl Unfavorabl Disease Active U nivers e cervix e cervix - ity of in term in term 00:00: [place] 00 Medi kvng Branch Android Android Disease Active Univers pelvis pelvis 03-03 ity of 00:00: [place] 00 Medical Branch Allergies, Adverse Reactions, Alerts Allergy Allergy Status Severity Reaction(s) Onset Inactive Treating Comm ents Source Name Type Date Date Clinician NO KNOWN Drug Active Univers ALLERGIE Class ity of [facility] NO KNOWN Allergy Active [facility] Social History Social Habit Start Date Stop Date Quantity Comments Source [facility] to [facility]2 Yes [facility] [place] (event[facility] Smoking Status Start Date Stop Date Source Never smoker [facility] Medications Ordered Filled Start Stop Current Ordering Indication Dosage Frequency Signature Comments Components Source Medication Medication Date Date Medication? Clinician (SIG) Name Name levothyroxi Yes 125ug Take 125 U nivers ne 1-06 mcg by ity of (SYNTHROID) 21:09: mouth [place] 125 mcg 58 every Medical tablet morning. Branch levothyroxi Yes 125ug Take 125 U nivers ne 1-06 mcg by ity of (SYNTHROID) 21:09: mouth [place] 125 mcg 58 every Medical tablet morning. Branch levothyroxi Yes 125ug Take 125 U nivers ne 1-06 mcg by ity of (SYNTHROID) 21:09: mouth [place] 125 mcg 58 every Medical tablet morning. Branch Vital Signs Vital Name Observation Time Observation Value Comments Source HEIGHT 2020-03-17 02:18:00 175.3 cm WEIGHT 2020-03-17 02:18:00 117.935 kg HEIGHT 2020-03-17 02:18:00 175.3 cm WEIGHT 2020-03-17 02:18:00 117.935 kg Procedures This patient has no known procedures. Encounters Start End Encounter Admission Attending Care Care Encounter Source Date/Time Date/Time Type Type Clinicians Facility Department ID 2020-12-06 Inpatient ER KATHARINA ZAYAS Urology [id number] 45 [facility] 23:46:26 NAYELI 2019-08-09 2019-08-09 Telephone Pcp, CHAVEZ [id number] 00:00:00 00:00:00 Patient ALIRIO 350.1.13.10 Does Not HOSPITAL 4.2.7.2.686 Have A [id number] [facility] 2019-08-09 2019-08-09 Telephone PcpCHAVEZ [id number] Univers 00:00:00 00:00:00 Patient ALIIRO 350.1.13.10 it y of Does Not HOSPITAL [place].2.[place] Have A [id number] [address] 2019-08-07 2019-08-07 Outpatient R GERARDO [facility] [id number] Univers 14:40:00 14:40:00 [facility] 2019-08-07 2019-08-07 Family Law Mediator Lab, [facility] [id number] 14:13:30 14:23:30 Visit [facility] Pob I Health 350.1.13.10 [place] 4.2.7.2.686 Professio [phone] [place] [address] Office [facility] 2019-08-07 2019-08-07 Family Law Mediator Lab, [facility] Pob I [facility] [id number] Univers 14:13:30 14:23:30 Visit Ruth Perez 350.1.13.10 y [facility] 4.2.7.2.686 [place] as Professio [id number] Md dical [address] Office Building [facility] 2019-08-07 2019-08-07 Outpatient R [facility] [id number] Univers 09:45:00 09:45:[id number] [place] [address] 2019-08-07 2019-08-07 Outpatient R GERARDO [facility] [id number] Univers 09:45:00 09:45:00 [facility] Results Test Description Test Time Test Comments Results Result Comments Source AFB CULTURE + SMEAR (NON-SPUTUM) 2020-04-29 08:47:00 Test Item Value Reference Range Interpretation Comme nts CULTURE (BEAKER) (test code = 1095) No acid-fast bacilli isolated i n 42 days AFB SMEAR (BEAKER) (test code = 994) No acid fast bacilli seen FUNGUS CULTURE + [id number] 00:35:00 Test Item Value Reference Range Interpretation Comments CULTURE (BEAKER) (test No fungus isolated in code = 1095) 28 days FUNGUS SMEAR (BEAKER) No fungi seen (test code = 1406) SURGICALLY OBTAINED CULTURE + GRAM [id number] 12:06:00 Test Item Value Reference Range Interpretation Comments CULTURE (BEAKER) (test code No growth = 1095) GRAM STAIN RESULT (BEAKER) <1+ WBCs (test code = 1123) GRAM STAIN RESULT (BEAKER) No organisms seen (test code = 70769) BASIC METABOLIC [id number] 09:53:00 Test Item Value Reference Range Interpretation [...] S NOT APPLICABLE FOR DIALYSIS PATIEN TS. Tube Machine Operator Helper ID - RENE MBUN AND CREATININE [id number] 09:13:00 Test Item Value Reference Range Interpretation Comments BLOOD UREA NITROGEN 9 mg/dL 7-21 (BEAKER) (test code = 354) CREATININE (BEAKER) 0.91 mg/dL 0.57-1.25 (test code = 358) BUN/CREAT RATIO 10 For a normal (BEAKER) (test code individu al on a = 5171353367) normal diet, t he reference inter carol for the mass ra thierno ranges between 12:1 and 20:1 (BUN i n mg/dL/creatinin e in mg/dL) EGFR (BEAKER) (test 74 mL/min/1.73 ESTIMA CHARLIE GFR IS code = 1092) sq m NOT ACCURATE CREATININE CLEARANCE IN PREDICTING GLOMERULAR FILTRATION RATE . ESTIMATED GFR I S NOT APPLICABLE FOR DIALYSIS PATIEN TS. CBC W/PLT COUNT & AUTO [id number] 06:26:00 Test Item Value Reference Range Interpretation [...] (BEAKER) (test code = 2801) BASIC METABOLIC [id number] 18:54:00 Test Item Value Reference Range Interpretation [...] S NOT APPLICABLE FOR DIALYSIS PATIEN TS. Tube Machine Operator Helper ID - DBDraw bloods from left [id number] 18:52:00 Test Item Value Reference Range Interpretation Comments MAGNESIUM (BEAKER) (test code = 2.0 mg/dL 1.6-2.6 627) Tube Machine Operator Helper ID - DBDraw bloods from left armC W/PLT COUNT & AUTO DIFFERENTIAL 2020-03-18 18:35:00 [...] (BEAKER) (test code = 2801) BASIC METABOLIC [id number] 17:20:00 Test Item Value Reference Range Interpretation [...] S NOT APPLICABLE FOR DIALYSIS PATIEN TS. Tube Machine Operator Helper ID - BSSPIN/CONCENTRATION [id number] 14:19:00 Test Item Value Reference Range Interpretation Comments CONCENTRATION CHARGED (BEAKER) (test Done code = 2657) FL, FLUORO, NON-SPECIFIC, UP TO 1 [id number] 13:50:00Reason for exam:- >LEFT [facility]RETERAL ST[facility] : 1990 Sex: FFluoroscopic unit utilized for a procedure performed in the OR. No interpretation was requested. Refer to the operative report for findings. Refer to PACS for patient radiation dose information.SARS-COV2/RT-PCR ([facility] & REF LABS)2020-03-17 13:04:00 Test Item Value Reference Range Interpretation Comments SARS-COV2/RT-PCR (test Negative Not Detected, Negative, code = 8238751) See external report for linked test SARS-COV-2 PERFORMING LAB [facility] (test code = 7119722) Negative result for this test determines that [...] 564(g) of the Act.Fact Sheet for Healthcare Providers:https://www.GroupTalentidel.com/sites/default/files/product/documents/Fact_Shee u_YB_Eizmauohf_Mrgo_JLJU-SpG-9.pdfFact Sheet for Healthcare Patients:https://www.Celebrations.com.H[employer]Wheel/sites/default/files/product/ documents/Eied_Zvzjv_Egtckafw_Viwv_GAVW-XwQ-9.pdfPerforming Laboratory:[address], [place] [address]MALEIQVFB SCREEN, [id number] 10:06:00 Test Item Value Reference Range Interpretation Comments TEST URINE (BEAKER) (test Negative code = 583) CBC W/PLT COUNT & AUTO [id number] 06:52:00 Test Item Value Reference Range Interpretation [...] (BEAKER) (test code = 2801) BASIC METABOLIC [id number] 06:44:00 Test Item Value Reference Range Interpretation [...] S NOT APPLICABLE FOR DIALYSIS PATIEN TS. Tube Machine Operator Helper ID - PIAYA L
[2021-02-20 23:42] LABS: Urine Blood 2+ (Negative); Urine Glucose Negative (Negative); Urine Protein 2+ (Negative); Urine Specific Gravity 1.015 (1.005-1.030)
[2021-02-21 00:05] LABS: Urine Specific Gravity/Preg 1.015 (1.005-1.030)
--- NOTE | 2021-02-21 01:05 | ER ---
Nurse's Notes [facility] Name: Zelda Davalos Age: 30 yrs Sex: Female : 1990 Arrival Date: 02/20/2021 Time: 22:00 Bed 13 Private MD: Diagnosis: UTI/ Urinary tract infection, site not specified Presentation: 02/20 23:01 Chief complaint: Patient states: Sweating, chills, generalized weakness x 2 days; lp1 decreased appetite, reports lower abdominal cramping. Coronavirus screen: chills, shaking with chills. Ebola Screen: No symptoms or risks identified at this time. Risk Assessment: Do you want to hurt yourself or someone else? Patient reports no desire to harm self or others. Onset of symptoms was February 20, 2021. 23:01 Method Of Arrival: Ambulatory lp1 23:01 Acuity: MINAL 3 lp1 23:04 Initial Sepsis Screen: Does the patient meet any 2 criteria? No. Patient's initial lp1 sepsis screen is negative. Does the patient have a suspected source of infection? No. Patient's initial sepsis screen is negative. PRIMARY SUBSTANCE ABUSE COUNSELOR: 23:07 LMP N/A - control method lp1 Historical: - Allergies: 23:03 No Known Allergies; lp1 - Home Meds: 23:03 levothyroxine 100 mcg cap 1 cap once daily [Active]; lp1 - PMHx: 23:03 Hypothyroidism; kidney problems; kidney stones; lp1 - PSHx: 23:03 ; lp1 - Immunization history:: Adult Immunizations up to date. - Social history:: Smoking status: Patient denies any tobacco usage or history of. Screenin:04 Abuse screen: Denies threats or abuse. Denies injuries from another. Nutritional lp1 screening: No deficits noted. Tuberculosis screening: No symptoms or risk factors identified. Fall Risk None identified. Assessment: 02/21 00:50 General: Appears in no apparent distress. Behavior is calm, cooperative. Pain: Denies mk pain. Neuro: Level of Consciousness is awake, alert, obeys commands, Oriented to person, place, time, situation, Gas Pumping Station Operator are equal bilaterally Moves all extremities. Gait is steady, Speech is normal. Cardiovascular: Heart tones S1 S2 present Capillary refill < 3 seconds JVD is absent Patient's skin is warm and dry. Pulses are 2+ in right radial artery, right dorsalis pedis artery, left radial artery and left dorsalis pedis artery Edema is absent. Rhythm is regular. Respiratory: Airway is patent Trachea midline Respiratory effort is even, unlabored, Respiratory pattern is regular, symmetrical, Breath sounds are clear. GI: Bowel sounds present X 4 quads. Abd is soft and non tender X 4 quads. : Reports burning with urination, urinary frequency, since 2 days. Derm: Skin is intact, is healthy with good turgor, Skin is dry, Skin is pink, warm \T\ dry. Skin temperature is warm. Musculoskeletal: Range of motion: limited in all extremities. Vital Signs: 02/20 23:04 BP 121 / 82; Pulse 97; Resp 18; Temp 99.6(O); Pulse Ox 100% on R/A; Weight 113.4 kg lp1 (R); Height 5 ft. 6 in. (167.64 cm); Pain 3/10; 02/21 00:50 BP 124 / 76; Pulse 99; Resp 18; Temp 99; Pulse Ox 98% on R/A; mk 02/20 23:04 Body Mass Index 40.35 (113.40 kg, 167.64 cm) lp1 [place] Coma Score: 00:50 Eye Response: spontaneous(4). Verbal Response: oriented(5). Motor Response: obeys mk commands(6). Total: 15. ED Course: 02/20 22:00 Patient arrived in ED. ja2 23:02 Triage completed. lp1 23:03 Arm band placed on left wrist. lp1 23:07 Patient has correct armband on for positive identification. lp1 02/21 00:35 Rose Richey, RN is Primary Nurse. mk 00:36 Arina Glaser FNP-C is PHCP. kb 00:[address] MD is Attending Physician. kb 01:14 No provider procedures requiring assistance completed. Patient did not have IV access mk during this emergency room visit. Administered Medications: 01:28 Drug: Macrobid (nitrofurantoin) 100 mg Route: PO; mk Outcome: 01:05 Discharge ordered by . kb 01:14 Discharged to home ambulatory. mk 01:14 Condition: good 01:14 Discharge instructions given to patient. 01:54 Patient left the ED. mk Signatures: Arina Glaser, CLINT CRM COORDINATOR-Jennifer Garcia RN RN lp1 Екатерина Smith Madeline, RN NAKUL tejeda
--- NOTE | 2021-02-21 01:05 | EDPHYS ---
Physician Documentation [facility] Name: Zelda Davalos Age: 30 yrs Sex: Female : 1990 Arrival Date: 02/20/2021 Time: 22:00 Bed 13 Private MD: ED Physician Sherman Way HPI: 02/21 01:11 This 30 yrs old Female presents to ER via Ambulatory with complaints of Fever, kb Abdominal Cramping, Headache. 01:11 The patient presents with urinary symptoms, frequency. The patient has not experienced kb similar symptoms in the past. The patient has not recently seen a physician. 01:11 Onset: The symptoms/episode began/occurred 2 day(s) ago. Modifying factors: The kb symptoms are alleviated by nothing, the symptoms are aggravated by nothing. Associated signs and symptoms: Pertinent positives: urinary frequency. Severity of symptoms: At their worst the symptoms were mild, in the emergency department the symptoms are unchanged. Pt reports suprapubic cramping, urinary frequency, and chills for 2 days. Reports history of UTIs. DATA SUPPORT ANALYST: 02/20 23:07 LMP N/A - control method lp1 Historical: - Allergies: 23:03 No Known Allergies; lp1 - Home Meds: 23:03 levothyroxine 100 mcg cap 1 cap once daily [Active]; lp1 - PMHx: 23:03 Hypothyroidism; kidney problems; kidney stones; lp1 - PSHx: 23:03 ; lp1 - Immunization history:: Adult Immunizations up to date. - Social history:: Smoking status: Patient denies any tobacco usage or history of. ROS: 02/21 01:10 Respiratory: Negative for shortness of breath, cough, wheezing, and pleuritic chest kb pain. Constitutional: Positive for chills. Abdomen/GI: Positive for abdominal cramps, of the suprapubic area. : Positive for urinary symptoms, urinary frequency. All other systems are negative. Exam: 01:10 Constitutional: This is a well developed, well nourished patient who is awake, alert, kb and in no acute distress. Head/Face: Normocephalic, atraumatic. ENT: Moist Mucous membranes Respiratory: Respirations even and unlabored. No increased work of breathing. Talking in full sentences Skin: Warm, dry with normal turgor. Normal color. MS/ Extremity: Pulses equal, no cyanosis. Neurovascular intact. Full, normal range of motion. Neuro: Awake and alert, GCS 15, oriented to person, place, time, and situation. Moves all extremities. Normal gait. Psych: Awake, alert, with orientation to person, place and time. Behavior, mood, and affect are within normal limits. 01:10 Abdomen/GI: Inspection: abdomen appears normal, Bowel sounds: normal, in all quadrants, Palpation: soft, in all quadrants, mild abdominal tenderness, in the suprapubic area. Vital Signs: 02/20 23:04 BP 121 / 82; Pulse 97; Resp 18; Temp 99.6(O); Pulse Ox 100% on R/A; Weight 113.4 kg lp1 (R); Height 5 ft. 6 in. (167.64 cm); Pain 05/08; 02/21 00:50 BP 124 / 76; Pulse 99; Resp 18; Temp 99; Pulse Ox 98% on R/A; mk 02/20 23:04 Body Mass Index 40.35 (113.40 kg, 167.64 cm) lp1 [place] Coma Score: 00:50 Eye Response: spontaneous(4). Verbal Response: oriented(5). Motor Response: obeys mk commands(6). Total: 15. MDM: 00:37 Patient medically screened. kb 01:04 Data reviewed: vital signs, nurses notes. Data interpreted: Pulse oximetry: on room air kb is 100 %. Interpretation: normal. Counseling: I had a detailed discussion with the patient and/or guardian regarding: the historical points, exam findings, and any diagnostic results supporting the discharge/admit diagnosis, lab results, the need for outpatient follow up, a family practitioner, to return to the emergency department if symptoms worsen or persist or if there are any questions or concerns that arise at home. 02/20 23:42 Order name: Urine Dipstick-Ancillary; Complete Time: 00:14 EDMS 02/20 23:53 Order name: Urine --Ancillary (enter results); Complete Time: 00:14 cs9 02/20 23:07 Order name: Urine Dipstick-Ancillary (obtain specimen) lp1 02/20 23:07 Order name: Urine Test (obtain specimen); Complete Time: 00:39 lp1 Administered Medications: 01:28 Drug: Macrobid (nitrofurantoin) 100 mg Route: PO; mk Disposition: 06:08 Co-signature as Attending Physician, Sherman Way MD I agree with the assessment and rn plan of care. Attestation: The patient's history, exam findings, diagnostics, and a summary of any interventions or procedures was reviewed in detail with Arina JARAMILLO. Disposition Summary: 02/21/21 01:05 Discharge Ordered Location: Home kb Condition: Stable kb Diagnosis - UTI/ Urinary tract infection, site not specified kb Followup: kb - With: Emergency Department - When: As needed - Reason: Worsening of condition Followup: kb - With: Private Physician - When: 2 - 3 days - Reason: Recheck today's complaints, Continuance of care, Re-evaluation by your physician Discharge Instructions: - Discharge Summary Sheet kb - Urinary Tract Infection, Adult, [id number] kb Forms: - Medication Reconciliation Form kb - Thank You Letter kb - Antibiotic Education kb - Prescription Opioid Use kb Prescriptions: - Macrobid 100 mg Oral Capsule - take 1 capsule by ORAL route every 12 hours for 10 days; 20 capsule; Refills: kb 0, Product Selection Permitted Signatures: Dispatcher [employer] EDArina Stein, CLINT NICHOLE-Sherman Sarabia MD MD rn Pena, Laura RN RN lp1 Rose Richey, RN NAKUL tejeda
[2021-02-21] MEDS ORDERED: NITROFURAN MACRO 100 MG CAP PO ONE (01:24)
[2021-02-21 02:11] VITALS: BP 124/76; TEMP 99; O2SAT 98
== END 2021-02-21 01:54 | disposition home or self-care (01) ==
LOC: ER 21:57
DX: N39.0 Urinary tract infection, site not specified (principal)
CPT/HCPCS: 81003; 81025; 99283

== ENCOUNTER 2021-07-28 11:28 | Emergency (ER) | payer OTHER ==
--- OUTSIDE RECORDS SUMMARY | 2021-07-28 11:31 | XMS REPORT | Continuity of Care Document ---
:1990 Author Organization [facility] t Address [address] [place] [address] Care Team Providers Name Role Phone KARIME ZAYAS Attending Clinician Unavailable Pcp, Does Not Have A Attending Clinician GERARDO Attending Clinician Unavailable Lab, Fam Pob I Attending Clinician Unavailable Gerardo BLEACH BOILER PULLER Attending Clinician KARIME ZAYAS Admitting Clinician Unavailable DAR Admitting Clinician Unavailable Problems Condition Condition Condition Status Onset Resolution Last Treating Co mments Source Name Details Category Date Date Treatment Clinician Date Obesity Obesity Disease Active Univers (BMI (BMI 1-16 ity of 30-39.9) 30-39.9) 00:00: [address] Anemia Anemia Disease Active Univers 1-05 ity of 00:00: [address] 41 weeks 41 weeks Disease Active Unive rs gestation gestation 1-04 ity of of of 00:00: [place] 00 [facility] Liveborn Liveborn Disease Active Unive rs by by 1-04 ity of 00:00: [address] Post term Post term Disease Active Uni vers 1-03 ity of at 41 at 41 00:00: [place] weeks weeks 00 Medical gestation gestation Bran ch Unfavorabl Unfavorabl Disease Active U nivers e cervix e cervix - ity of in term in term 00:00: [place] 00 [facility] Branch Android Android Disease Active Univers pelvis pelvis - ity of 00:00: [place] 00 [facility] Allergies, Adverse Reactions, Alerts Allergy Allergy Status Severity Reaction(s) Onset Inactive Treating Comm ents Source Name Type Date Date Clinician NO KNOWN Drug Active Univers ALLERGIE Class ity of S [facility] NO KNOWN Allergy Active [facility] Social History Social Habit Start Date Stop Date Quantity Comments [facility] to [facility]2 Yes [facility] [place] (event) [facility] Smoking Status Start Date Stop Date Source Never smoker [facility] Medications Ordered Filled Start Stop Current [...] ID 2020-12-06 Inpatient ER KATHARINA ZAYAS Urology [id number] [facility] 23:46:26 NAYELI 2019-08-09 2019-08-09 Telephone PcpCHAVEZ [id number] 00:00:00 00:00:00 Patient ALIRIO [id number] Does Not HOSPITAL [id number] Have A [phone] [facility][note 3] 2019-08-09 2019-08-09 Telephone Pcp, CHAVEZ [id number] Univers 00:00:00 00:00:00 Patient ALIRIO [id number] it y of [place] HOSP[place].2.[place] Have A [id number] [address] 2019-08-07 2019-08-07 Outpatient R GERARDO [facility] [id number] Univers 14:40:00 14:40:[facility]-08-07 2019-08-07 Skydiving Instructor Lab, [facility] [id number] 14:13:30 14:23:30 Visit Fam Pob I Health [id number] [place] [id number] Professio [phone] [place] [address] Office [facility] 2019-08-07 2019-08-07 Skydiving Instructor Lab, [facility] Fam Pob I [facility] [id number] Univers 14:13:30 14:23:30 Visit Ruth Perez [id number] ity [facility] [id number] [place] as Professio [phone] Dc dical [address] Office Building [facility] 2019-08-07 2019-08-07 Outpatient R [facility] [id number] Univers 09:45:00 09:45:00 [id number] [facility] 2019-08-07 2019-08-07 [facility] [id number] Univers 09:45:00 09:45:00 [facility] Results Test Description Test Time Test Comments Results Result Comments Source AFB CULTURE + SMEAR (NON-SPUTUM) 2020-04-29 08:47:00 Test Item Value Reference Range Interpretation Comme nts CULTURE (BEAKER) (test code = 1095) No acid-fast bacilli isolated i n 42 days AFB SMEAR (BEAKER) (test code = 994) No acid fast bacilli seen FUNGUS CULTURE + [id number] 00:35:00 Test Item Value Reference Range Interpretation Comments CULTURE (BEAKER) (test No fungus isolated in code = 1095) 28 days FUNGUS SMEAR (BEAKER) No fungi seen (test code = 1406) SURGICALLY OBTAINED CULTURE + GRAM [id number] 12:06:00 Test Item Value Reference Range Interpretation Comments CULTURE (BEAKER) (test code No growth = 1095) GRAM STAIN RESULT (BEAKER) <1+ WBCs (test code = 1123) GRAM STAIN RESULT (BEAKER) No organisms seen (test code = 65007) BASIC METABOLIC [id number] 09:53:00 Test Item Value Reference Range Interpretation [...] S NOT APPLICABLE FOR DIALYSIS PATIEN TS. Plant Operator/Shift Supervisor ID - RENE MBUN AND CREATININE [id number] 09:13:00 Test Item Value Reference Range Interpretation Comments BLOOD UREA NITROGEN 9 mg/dL 7-21 (BEAKER) (test code = 354) CREATININE (BEAKER) 0.91 mg/dL 0.57-1.25 (test code = 358) BUN/CREAT RATIO 10 For a normal (BEAKER) (test code individu al on a = 0962170419) normal diet, t he reference inter carol for the mass ra thierno ranges between 12:1 and 20:1 (BUN i n mg/dL/creatinin e in mg/dL) EGFR (BEAKER) (test 74 mL/min/1.73 ESTIMA CHARLIE GFR IS code = 1092) sq m NOT ACCURATE CREATININE CLEARANCE IN PREDICTING GLOMERULAR FILTRATION RATE . ESTIMATED GFR I S NOT APPLICABLE FOR DIALYSIS PATIEN TS. CBC W/PLT COUNT & AUTO [id number] 06:26:00 Test Item Value Reference Range Interpretation [...] (BEAKER) (test code = 2801) BASIC METABOLIC [id number] 18:54:00 Test Item Value Reference Range Interpretation [...] S NOT APPLICABLE FOR DIALYSIS PATIEN TS. Plant Operator/Shift Supervisor ID - DBDraw bloods from left [id number] 18:52:00 Test Item Value Reference Range Interpretation Comments MAGNESIUM (BEAKER) (test code = 2.0 mg/dL 1.6-2.6 627) Plant Operator/Shift Supervisor ID - DBDraw bloods from left armC [...] (BEAKER) (test code = 2801) BASIC METABOLIC [id number] 17:20:00 Test Item Value Reference Range Interpretation [...] S NOT APPLICABLE FOR DIALYSIS PATIEN TS. Plant Operator/Shift Supervisor ID - BSSPIN/CONCENTRATION [id number] 14:19:00 Test Item Value Reference Range Interpretation Comments CONCENTRATION CHARGED (BEAKER) (test Done code = 2657) FL, FLUORO, NON-SPECIFIC, UP TO 1 [id number] 13:50:00Reason for exam:- >[facility] : 1990 Sex: FFluoroscopic unit utilized for a procedure performed in the OR. No interpretation was requested. Refer to the operative report for findings. Refer to PACS for patient radiation dose information.SARS-COV2/RT-PCR ([facility])2020-03-17 13:04:00 Test Item Value Reference Range Interpretation Comments SARS-COV2/RT-PCR (test Negative Not Detected, Negative, code = 3739827) See external report for linked test SARS-COV-[address] [facility] (test code = 1891178) Negative result for this test determines that [...] 564(g) of the Act.Fact Sheet for Healthcare Providers:https://www.Evermindidel.com/sites/default/files/product/documents/Fact_Shee u_IY_Yjiqfjsjp_Eimh_BHWE-NrF-2.pdfFact Sheet for Healthcare Patients:https://www.[employer]/sites/default/files/product/ documents/Ween_Gewsd_Eijhrgao_Wiyj_JVME-AwV-7.pdfPerforming Laboratory:[address] [place], [place] [address]AKJJPXOSQ SCREEN, [id number] 10:06:00 Test Item Value Reference Range Interpretation Comments TEST URINE (BEAKER) (test Negative code = 583) CBC W/PLT COUNT & AUTO [id number] 06:52:00 Test Item Value Reference Range Interpretation [...] (BEAKER) (test code = 2801) BASIC METABOLIC [id number] 06:44:00 Test Item Value Reference Range Interpretation [...] S NOT APPLICABLE FOR DIALYSIS PATIEN TS. Plant Operator/Shift Supervisor ID - PIAYA L
[2021-07-28] MEDS ORDERED: IBUPROFEN 400 MG TAB ONE (13:14)
--- NOTE | 2021-07-28 14:09 | RAD REPORT ---
EXAM DESCRIPTION: RAD - Elbow Right 3 View - 07/28/2021 2:00 pm CLINICAL HISTORY: Right elbow pain status post injury FINDINGS: No fracture or dislocation is seen.
--- NOTE | 2021-07-28 14:27 | EDPHYS ---
Physician Documentation [facility] Name: Zelda Davalos Age: 30 yrs Sex: Female : 1990 Arrival Date: 07/28/2021 Time: 11:29 Bed 9 Private MD: ED Physician Nash Cherry HPI: 07/28 13:00 This 30 yrs old Female presents to ER via Ambulatory with complaints of Elbow Injury. cp 13:00 The patient or guardian complains of injury, pain, that is acute. The complaints affect cp the right elbow. Context: resulted from a fall, directly onto elbow. Onset: The symptoms/episode began/occurred yesterday. Treatment prior to arrival includes: no previous treatment. Associated signs and symptoms: The patient has no apparent associated signs or symptoms. CLAIM REVIEW MEDICAL DIRECTOR: 12:04 LMP N/A - Irregular menses ap3 Historical: - Allergies: 12:00 No Known Allergies; ap3 - Home Meds: 12:00 levothyroxine 100 mcg cap 1 cap once daily [Active]; Aimovig Autoinjector subcutaneous ap3 [Active]; - PMHx: 12:02 Hypothyroidism; kidney problems; Kidney stones; Migraine; ap3 - Immunization history:: Adult Immunizations up to date. - Social history:: Smoking status: Patient denies any tobacco usage or history of. ROS: 13:05 Constitutional: Negative for body aches, chills, fever, poor PO intake. cp 13:05 Neck: Negative for pain with movement, pain at rest, stiffness. cp 13:05 Cardiovascular: Negative for chest pain, palpitations. 13:05 Respiratory: Negative for cough, shortness of breath, wheezing. 13:05 Abdomen/GI: Negative for abdominal pain, vomiting, diarrhea, constipation. 13:05 Back: Negative for pain at rest, pain with movement. 13:05 MS/extremity: Positive for pain, tenderness, of the right elbow, Negative for decreased range of motion, deformity, paresthesias. 13:05 Neuro: Negative for altered mental status, headache, weakness. 13:05 All other systems are negative. Exam: 13:10 Constitutional: The patient appears in no acute distress, alert, awake, non-toxic, well cp developed, well nourished, obese. 13:10 Head/Face: Normocephalic, atraumatic. cp 13:10 Neck: ROM/movement: is normal, is supple, without pain, no range of motions limitations. 13:10 Chest/axilla: Inspection: normal. 13:10 Cardiovascular: Rate: normal. 13:10 Respiratory: the patient does not display signs of respiratory distress, Respirations: normal, no use of accessory muscles, no retractions. 13:10 Abdomen/GI: Inspection: abdomen appears normal. 13:10 Back: pain, is absent, ROM is normal. 13:10 Musculoskeletal/extremity: Extremities: grossly normal except: noted in the right elbow: pain, tenderness noted posterior and lateral elbow, There is no evidence of decreased ROM, deformity, ROM: limited passive range of motion due to pain, in the right elbow, Pulses: noted to be 2+ in the right radial artery, the right arm Sensation intact. 13:10 Skin: cellulitis, is not appreciated, no rash present. 13:10 Neuro: Orientation: to person, place \T\ time. Mentation: is normal. Vital Signs: 11:58 BP 133 / 76; Pulse 84; Resp 16; Temp 98.2(O); Pulse Ox 99% ; Weight 120.2 kg; Height 5 ap3 ft. 5 in. (165.10 cm); Pain 5/10; 11:58 Body Mass Index 44.10 (120.20 kg, 165.10 cm) ap3 MDM: 12:05 Patient medically screened. cp 14:25 Data reviewed: vital signs, nurses notes, radiologic studies, plain films. cp 14:25 Differential diagnosis: dislocation, closed fracture, contusion. Test interpretation: cp by ED physician or midlevel provider: plain radiologic studies. Counseling: I had a detailed discussion with the patient and/or guardian regarding: the historical points, exam findings, and any diagnostic results supporting the discharge/admit diagnosis, radiology results, the need for outpatient follow up, a orthopedic surgeon, to return to the emergency department if symptoms worsen or persist or if there are any questions or concerns that arise at home. 07/28 12:56 Order name: XRAY Elbow RIGHT 3 view; Complete Time: 14:25 cp 07/28 14:25 Interpretation: Report reviewed. cp 07/28 14:25 Order name: Sling; Complete Time: 15:13 cp Administered Medications: 13:15 Not Given (Patient Refused): Ibuprofen 800 mg PO once; may give if not iw Disposition Summary: 07/28/21 14:26 Discharge Ordered Location: Home cp Problem: new cp Symptoms: have improved cp Condition: Stable cp Diagnosis - Contusion of right elbow cp Followup: cp - With: Juanpablo Skaggs MD - When: 2 - 3 days - Reason: Recheck today's complaints Discharge Instructions: - Discharge Summary Sheet cp - Elbow Contusion cp Forms: - Medication Reconciliation Form cp - Thank You Letter cp - Antibiotic Education cp - Prescription Opioid Use cp Prescriptions: - Naprosyn 500 mg Oral Tablet - take 1 tablet by ORAL route 2 times per day take with food; 20 tablet; Refills: cp 0, Product Selection Permitted Addendum: 07/29/2021 21:56 Co-signature as Attending Physician, Nash CERVANTES was immediately available on-site m s3 in the Emergency Department for consultation in the care of the patient. . Signatures: Dispatcher [employer] EDMS Jonathan Black PA PA cp Prokisch, Amanda, RN RN ap3 Nash Cherry DO DO ms3 Meseret Hawthorne RN iw
--- NOTE | 2021-07-28 14:27 | ER ---
Nurse's Notes [facility] Name: Zelda Davalos Age: 30 yrs Sex: Female : 1990 Arrival Date: 07/28/2021 Time: 11:29 Bed 9 Private MD: Diagnosis: Contusion of right elbow Presentation: 07/28 11:58 Chief complaint: Patient states: [place] and ap3 hit her right elbow. She states that she wasn't really in a lot of pain yesterday, but when she woke up this morning it was hurting. Patient currently reports pain 5/10 but when she moves the elbow, she reports pain 9/10. Coronavirus screen: At this time, the client does not indicate any symptoms associated with coronavirus-19. Ebola Screen: No symptoms or risks identified at this time. Initial Sepsis Screen: Does the patient meet any 2 criteria? No. Patient's initial sepsis screen is negative. Does the patient have a suspected source of infection? No. Patient's initial sepsis screen is negative. Risk Assessment: Do you want to hurt yourself or someone else? Patient reports no desire to harm self or others. Onset of symptoms was July 27, 2021. 11:58 Method Of Arrival: Ambulatory ap3 11:58 Acuity: IMNAL 4 ap3 Triage Assessment: 12:03 General: Appears in no apparent distress. Behavior is calm, cooperative, appropriate ap3 for age. Pain: Complains of pain in right elbow Pain currently is 5 out of 10 on a pain scale. at worst was 10 out of 10 on a pain scale. Neuro: Level of Consciousness is awake, alert, obeys commands, Oriented to person, place, time, situation, Appropriate for age. Cardiovascular: Patient's skin is warm and dry. Respiratory: Airway is patent Respiratory effort is even, unlabored, Respiratory pattern is regular, symmetrical. Musculoskeletal: Range of motion: limited in right elbow. Injury Description: fall from standing. 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 - Social history:: Smoking status: Patient denies any tobacco usage or history of. Screenin:04 Abuse screen: Denies threats or abuse. Nutritional screening: No deficits noted. ap3 Tuberculosis screening: No symptoms or risk factors identified. Vital Signs: 11:58 BP 133 / 76; Pulse 84; Resp 16; Temp 98.2(O); Pulse Ox 99% ; Weight 120.2 kg; Height 5 ap3 ft. 5 in. (165.10 cm); Pain 5/10; 11:58 Body Mass Index 44.10 (120.20 kg, 165.10 cm) ap3 ED Course: 11:29 Patient arrived in ED. as 11:46 Jonathan Black PA is PHCP. cp 11:46 Nash Cherry DO is Attending Physician. cp 12:00 Triage completed. ap3 12:04 Arm band placed on left wrist. ap3 12:58 Meseret Hawthorne, RN is Primary Nurse. iw 14:01 XRAY Elbow RIGHT 3 view In Process Unspecified. EDMS 14:25 Juanpablo Skaggs MD is Referral Physician. cp 15:13 No provider procedures requiring assistance completed. Patient did not have IV access jb4 during this emergency room visit. Administered Medications: 13:15 Not Given (Patient Refused): Ibuprofen 800 mg PO once; may give if not iw Medication: 12:04 VIS not applicable for this client. ap3 Outcome: 14:26 Discharge ordered by . cp 15:13 Discharged to home ambulatory, with family. jb4 15:13 Condition: stable 15:13 Discharge instructions given to patient, Instructed on discharge instructions, follow up and referral plans. medication usage, Demonstrated understanding of instructions, follow-up care, medications, Prescriptions given X 1. 15:13 Patient left the ED. jb4 Signatures: Dispatcher [employer] EDMS Ashlie Roberts Irene, RN RN iw Jonathan Black PA PA cp Hugh Cortés RN RN jb4 Sherri Nice RN RN ap3
[2021-07-28 15:21] VITALS: BP 133/76; TEMP 98.2; O2SAT 99
== END 2021-07-28 15:13 | disposition home or self-care (01) ==
LOC: ER 11:28
DX: S50.01XA Contusion of right elbow, initial encounter (principal); E03.9 Hypothyroidism, unspecified
CPT/HCPCS: 99283

== ENCOUNTER 2022-03-24 11:48 | Emergency (ER) | payer OTHER ==
--- OUTSIDE RECORDS SUMMARY | 2022-03-24 11:52 | XMS REPORT | Continuity of Care Document ---
:[address] [facility] t Address [address] [place] [address] Care Team Providers Name Role Phone NAYELI ZAYAS Attending Clinician Unavailable Pcp, Patient Does Not Have A Attending Clinician [phone] RUTH CARRILLO Attending Clinician Unavailable Lab, Adc Fam Pob I Attending Clinician Unavailable Ruth Lee Attending Clinician NAYELI ZAYAS Admitting Clinician Unavailable DUONG DODGE Admitting Clinician Unavailable Problems Condition Condition Condition Status Onset Resolution Last Treating Co mments Source Name Details Category Date Date Treatment Clinician Date Hydronephr Hydronephr Disease Active [facility] Obesity Obesity Disease Active Univers (BMI (BMI 1-16 ity of 30-39.9) 30-39.9) 00:00: [address] Branch Anemia Anemia Disease Active Univers 1-05 ity of 00:00: [address] Branch 41 weeks 41 weeks Disease Active Unive rs gestation gestation 1-04 ity of of of 00:00: [place] 00 [facility] Liveborn Liveborn Disease Active Unive rs by by 1-04 ity of 00:00: [facility] s [address] [place] [address] Branch Post term Post term Disease Active Uni vers 1- ity of at 41 at 41 00:00: [place] weeks weeks 00 Medical gestation gestation Bran ch Unfavorabl Unfavorabl Disease Active U nivers e cervix e cervix 1- ity of in term in term 00:00: [place] 00 [facility] Branch Android Android Disease Active Univers pelvis pelvis 1 ity of 00:00: [address] Allergies, Adverse Reactions, Alerts Allergy Allergy Status Severity Reaction(s) Onset Inactive Treating Comm ents Source Name Type Date Date Clinician NO KNOWN Drug Active Univers ALLERGIE Class ity of [facility] NO KNOWN Allergy Active [facility] Social History Social Habit Start Date Stop Date Quantity Comments Source Exposure to Yes [facility]-CoV-2 [place] [facility] (event) Branch History SDOH [facility] Alcohol Frequency Medical Center History SDOH [facility] Alcohol Std Medical Cente r Drinks History SDOH [facility] Alcohol Binge Medical [address] Alcohol intake 2020-03-18 2020-03-18 [facility] (finding) Tobacco use and 2020-03-17 2020-03-[address] [facility] exposure 00:00:00 00:00:00 Medical Center History SDOH 2020-03-17 2020-03-[address] [facility] Alcohol Comment 00:00:00 00:00:00 Medical C enter Sex Assigned At [address] [facility] 00:00:00 [facility]:00[facility]00 Medical Center Smoking Status Start Date Stop Date Source Never smoker [facility] Medications Ordered Filled Start Stop Current Ordering Indication Dosage Frequency Signature Comments Components Source Medication Medication Date Date Medication? Clinician (SIG) Name Name tamsulosin Yes .4mg QD Take 1 [facility] (FLOMAX) 1-20 capsule [facility] 0.4 mg Cap 00:00: (0.4 mg Medi kvng 24 hr 00 total) by Center capsule mouth daily. tamsulosin Yes .4mg QD Take 1 [facility] (FLOMAX) 1-20 capsule [facility] 0.4 mg Cap 00:00: (0.4 mg Medi kvng 24 hr 00 total) by Center capsule mouth daily. levothyroxi Yes 125ug Take [address] [facility] [address] [facility] 1-19 tablet [facility] (SYNTHROID, 00:00: (125 mcg Me dical LEVOTHROID) 00 total) by [address] 125 MCG mouth tablet Every morning on an empty stomach. levothyroxi Yes 125ug Take [address] [facility] 1-19 tablet [facility] (SYNTHROID, 00:00: (125 mcg Me dical LEVOTHROID) 00 total) by [address] [facility] 125 MCG mouth tablet Every morning on an empty stomach. levothyroxi Yes 125ug Take 125 U nivers [...] Procedures This patient has no known procedures. Plan of Care Planned Activity Planned Date Details Comments Source Future Scheduled 2027-01-14 DTAP/TDAP/TD VACCINES [facility] 00:00:00 (2 - Td or Tdap) [facility] [address] [facility] [code = DTAP/TDAP/TD VACCINES (2 - Td or Tdap)] Future Scheduled 2027-01-14 DTAP/TDAP/TD VACCINES [facility] 00:00:00 (2 - Td or Tdap) [facility] [code = DTAP/TDAP/TD VACCINES (2 - Td or Tdap)] Future Scheduled 2022-03-[address] [facility] Test 00:00:00 (12+) [code = Medical Center DEPRESSION SCREENING (12+)] Future Scheduled 2022-03-[address] [facility] Test 00:00:00 (12+) [code = Medical Center DEPRESSION SCREENING (12+)] Future Scheduled 2021-10-[address] [facility] Test 00:00:00 (#1) [code = Medical Center INFLUENZA VACCINE (#1)] Future Scheduled 2021-10-[address] [facility] Test 00:00:00 (#1) [code = Medical Center INFLUENZA VACCINE (#1)] Future Scheduled 2021-03-[address] [facility] Test 00:00:00 Counseling and Medical Cente r Screening (12+) [code = Tobacco Cessation Counseling and Screening (12+)] Future Scheduled 2021-03-[address] [facility] Test 00:00:00 Counseling and Medical Cente r Screening (12+) [code = Tobacco Cessation Counseling and Screening (12+)] Future Scheduled 2012-12-[address] [facility] Test 00:00:00 malignant neoplasm of Medica l Center cervix (procedure) [code = 303197436] Future Scheduled 2012-12-[address] [facility] Test 00:00:00 malignant neoplasm of Medica l Center cervix (procedure) [code = 599530488] Future Scheduled [address] [facility] Test 00:00:00 (procedure) [code = [facility] 44395399] Future Scheduled [address] [facility] Test 00:00:00 (procedure) [code = [facility] 54315583] Future Scheduled 2009-12-11 HEPATITIS C SCREENING [facility] Test 00:00:00 [code = HEPATITIS C Medical Center SCREENING] Future Scheduled 2009-12-11 HEPATITIS C SCREENING [facility] Test 00:00:00 [code = HEPATITIS C Medical Center SCREENING] Future Scheduled 1992-06-11 COVID-19 VACCINE (#1) [facility] Test 00:00:00 [code = COVID-[address] VACCINE (#1)] Future Scheduled 1992-06-11 COVID-19 VACCINE (#1) [facility] Test 00:00:00 [code = COVID-[address] VACCINE (#1)] Encounters Start End Encounter Admission Attending Care Care Encounter Source Date/Time Date/Time Type Type Clinicians Facility Department ID 2020-12-06 Inpatient ER MARQUEZ, KATHARINA Urology [id number] 45 [facility] 23:46:26 NAYELI 2019-08-09 2019-08-09 Telephone PcpCHAVEZ [id number] Univers 00:00:00 00:00:00 Patient ALIRIO [id number] it y of [place] H[place] [id number] [id number] [address] 2019-08-09 2019-08-09 Telephone Pcp, CHAVEZ [id number] 00:00:00 00:00:00 Patient ALIRIO [id number] Does Not HOSPITAL [id number] Have A [id number] [facility] 2019-08-07 2019-08-07 [id number] Univers 14:40:00 14:40:00 [facility] 2019-08-07 2019-08-07 [facility], [facility] Fam Pob I [facility] [id number] Univers 14:13:30 14:23:30 Visit Chris [facility] [id number] y [facility] [id number] [place] as Professio [phone] [address] Office Building [facility] 2019-08-07 2019-08-07 [facility], [facility] [id number] 14:13:30 14:23:30 Visit [facility] Pob I Health [id number] [place] [id number] Professio [phone] [place] [address] Office Building [facility] 2019-08-07 2019-08-07 Outpatient Eliz [facility]RILLO [facility] [id number] Univers 09:45:00 09:45:00 [facility] Results Test Description Test Time Test Comments Results Result Comments Source AFB CULTURE + SMEAR (NON-SPUTUM) 2020-04-29 08:47:00 Test Item Value Reference Range Interpretation Comme nts CULTURE (BEAKER) (test code = 1095) No acid-fast bacilli isolated i n 42 days AFB SMEAR (BEAKER) (test code = 994) No acid fast bacilli seen FUNGUS CULTURE + [id number] 00:35:00 Test Item Value Reference Range Interpretation Comments CULTURE (BEAKER) (test No fungus isolated in code = 1095) 28 days FUNGUS SMEAR (BEAKER) No fungi seen (test code = 1406) SURGICALLY OBTAINED CULTURE + GRAM [id number] 12:06:00 Test Item Value Reference Range Interpretation Comments CULTURE (BEAKER) (test code No growth = 1095) GRAM STAIN RESULT (BEAKER) <1+ WBCs (test code = 1123) GRAM STAIN RESULT (BEAKER) No organisms seen (test code = 69302) BASIC METABOLIC [id number] 09:53:00 Test Item Value Reference Range Interpretation [...] S NOT APPLICABLE FOR DIALYSIS PATIEN TS. Plan Coordinator ID - RENE MBUN AND CREATININE [id number] 09:13:00 Test Item Value Reference Range Interpretation Comments BLOOD UREA NITROGEN 9 mg/dL 7-21 (BEAKER) (test code = 354) CREATININE (BEAKER) 0.91 mg/dL 0.57-1.25 (test code = 358) BUN/CREAT RATIO 10 For a normal (BEAKER) (test code individu al on a = [id number]) normal diet, t he reference inter carol for the mass ra thierno ranges between 12:1 and 20:1 (BUN i n mg/dL/creatinin e in mg/dL) EGFR (BEAKER) (test 74 mL/min/1.73 ESTIMA CHARLIE GFR IS code = 1092) sq m NOT ACCURATE CREATININE CLEARANCE IN PREDICTING GLOMERULAR FILTRATION RATE . ESTIMATED GFR I S NOT APPLICABLE FOR DIALYSIS PATIEN TS. CBC W/PLT COUNT & AUTO [id number] 06:26:00 Test Item Value Reference Range Interpretation [...] (BEAKER) (test code = 2801) BASIC METABOLIC [id number] 18:54:00 Test Item Value Reference Range Interpretation [...] S NOT APPLICABLE FOR DIALYSIS PATIEN TS. Plan Coordinator ID - DBDraw bloods from left [id number] 18:52:00 Test Item Value Reference Range Interpretation Comments MAGNESIUM (BEAKER) (test code = 2.0 mg/dL 1.6-2.6 627) Plan Coordinator ID - DBDraw bloods from left armC [...] % 0-1 PERCENT (BEAKER) (test code = 2806) BASIC METABOLIC [id number] 17:20:00 Test Item Value Reference Range Interpretation [...] S NOT APPLICABLE FOR DIALYSIS PATIEN TS. Plan Coordinator ID - BSSPIN/CONCENTRATION [id number] 14:19:00 Test Item Value Reference Range Interpretation Comments CONCENTRATION CHARGED (BEAKER) (test Done code = 2657) FL, FLUORO, NON-SPECIFIC, UP TO 1 [id number] 13:50:00Reason for exam:- >LEFT URETERAL ST[facility] CRISTI GOME[place] : 1990 Sex: FFluoroscopic unit utilized for a procedure performed in the OR. No interpretation was requested. Referto the operative report for findings. Refer to PACS for patient radiation dose information.SARS-COV2/RT-PCR ([facility])2020-03-17 13:04:00 Test Item Value Reference Range Interpretation Comments SARS-COV2/RT-PCR (test Negative Not Detected, Negative, code = 2691563) See external report for linked test SARS-COV-2 PERFORMING LAB [facility] (test code = 3155613) Negative result for this test determines that [...] individuals suspected of COVID-19 by their healthcare provider.This test [...] justifying the authorization of the emergency use ofin vitro diagnostic tests for detection and/or diagnosis of COVID-19 is terminated under Section 564(b)(2) of the Act or the EUA is revoked under Section 564(g) of the Act.Fact Sheet for Healthcare Prov iders:https://www.[employer].com/sites/default/files/product/documents/Fact_Sheet_HC _Ueteqpnrn_Vqit_FRQS-ViR-1.pdfFact Sheet for Healthcare Patients:https://www.[employer].com/sites/default/files/product/docume nts/Dreh_Zhrib_Ysfmhidj_Qskd_NFGN-HiU-3.pdfPerforming Laboratory:[facility] [place], [place] [address]SAWNSVCHT SCREEN, URINE 2020-03-17 10:06:00 Test Item Value Reference Range Interpretation Comments TEST URINE (BEAKER) (test Negative code = 583) CBC W/PLT COUNT & AUTO [id number] 06:52:00 Test Item Value Reference Range Interpretation [...] (BEAKER) (test code = 2801) BASIC METABOLIC [id number] 06:44:00 Test Item Value Reference Range Interpretation [...] S NOT APPLICABLE FOR DIALYSIS PATIEN TS. Plan Coordinator ID - TREY Sylvester
[2022-03-24] MEDS ORDERED: DIAZEPAM 5 MG TABLET ONE (12:13)
[2022-03-24] MEDS ORDERED: KETOROLAC 30 MG/ML INJ ONE (12:14)
[2022-03-24] MEDS ORDERED: HYDROCODONE/APAP 5/325 MG TAB ONE (12:14)
[2022-03-24 12:15] LABS: Urine Blood Trace-intact (Negative); Urine Glucose Negative (Negative); Urine Protein Negative (Negative); Urine pH 7.5 (5.0-7.0)
[2022-03-24 12:30] LABS: Urine Bacteria <20 /HPF (<20); Urine RBC <5 /HPF (None Seen)
--- NOTE | 2022-03-24 13:44 | RAD REPORT ---
EXAM DESCRIPTION: CTSpine Lumbar Wo Con03/24/2022 1:22 pm CLINICAL HISTORY: Radiculopathy/back pain COMPARISON: None TECHNIQUE: Computed axial tomography lumbar spine was obtained with coronal and sagittal reconstruct ion. All CT scans are performed using dose optimization technique as appropriate and may include automated exposure control or mA/KV adjustment according to patient size. FINDINGS: No fracture seen. No dislocation Disc bulge L2-3 appears to result in a mild central spinal stenosis. No additional central/foraminal stenosis visualized. Small bilateral renal calculi IMPRESSION: Negative for a lumbar fracture. Spondylosis L2-3 Tom result in mild central spinal stenosis. If the patient has continues to have significant symptoms MRI would be recommended for further evalua tion
[2022-03-24] MEDS ORDERED: LIDOCAINE 4% PATCH ONE ×2 (14:13→16:37)
[2022-03-24] MEDS ORDERED: METHYLPREDNISOLONE 125 MG INJ ONE (14:13)
--- NOTE | 2022-03-24 16:24 | EDPHYS ---
Physician Documentation [facility] Name: Zelda Davalos Age: 31 yrs Sex: Female : 1990 Arrival Date: 03/24/2022 Time: 12:00 Bed 18 Private MD: ED Physician Nash Waters HPI: 03/24 18:14 This 31 yrs old Female presents to ER via EMS with complaints of right low back pain. kb 18:14 The patient presents with pain that is acute. The symptoms are located in the right low kb back. The pain radiates to the lumbar area. The problem was sustained when bending over. Onset: The symptoms/episode began/occurred just prior to arrival. Modifying factors: The patient symptoms are alleviated by nothing, the patient symptoms are aggravated by any movement. Associated signs and symptoms: Pertinent positives: none Pertinent negatives: abdominal pain, fever, incontinence, numbness, tingling, urinary retention. Severity of symptoms: At their worst the symptoms were moderate, in the emergency department the symptoms are unchanged. The patient has not experienced similar symptoms in the past. The patient has not recently seen a physician. Pt reports she was leaning over to put her pants on a felt a pinching pain to right low back, then was unable to bear weight without pain.. Historical: - Home Meds: 12:05 levothyroxine 100 mcg cap 1 cap once daily [Active]; Baclofen Oral [Active]; eh3 - PMHx: 12:05 Hypothyroidism; kidney problems; Kidney stones; Migraine; eh3 - PSHx: 12:05 ; eh3 - Immunization history:: Adult Immunizations up to date. - Social history:: Smoking status: Patient denies any tobacco usage or history of. Patient uses alcohol, occasionally. ROS: 18:13 Constitutional: Negative for fever, chills, and weight loss. kb 18:13 Back: Positive for pain at rest, pain with movement, of the right low back. 18:13 All other systems are negative. Exam: 18:13 Constitutional: This is a well developed, well nourished patient who is awake, alert, kb and in no acute distress. Head/Face: Normocephalic, atraumatic. ENT: Moist Mucous membranes Cardiovascular: Regular rate and rhythm with a normal S1 and S2. No gallops, murmurs, or rubs. No pulse deficits. Respiratory: Respirations even and unlabored. No increased work of breathing. Talking in full sentences Abdomen/GI: Soft, non-tender. No distention Skin: Warm, dry with normal turgor. Normal color. MS/ Extremity: Pulses equal, no cyanosis. Neurovascular intact. Full, normal range of motion. Neuro: Awake and alert, GCS 15, oriented to person, place, time, and situation. Moves all extremities. Normal gait. 18:13 Back: pain, that is moderate, of the right low back, ROM is painful, normal spinal alignment noted, CVA tenderness, is absent. Vital Signs: 12:03 BP 109 / 79; Pulse 75; Resp 18; Temp 98.0(O); Pulse Ox 100% ; Weight 122.47 kg; Height eh3 5 ft. 6 in. (167.64 cm); Pain 10/10; 13:00 BP 119 / 70; Pulse 70; Resp 18; Pulse Ox 97% on R/A; eh3 16:43 BP 113 / 70; Pulse 78; Resp 16; Pulse Ox 98% on R/A; iw 12:03 Body Mass Index 43.58 (122.47 kg, 167.64 cm) eh3 MDM: 12:00 Patient medically screened. kb 18:12 Differential diagnosis: strain, sciatica, Herniated disc. Data reviewed: vital signs, kb nurses notes. Consideration of Admission/Observation Escalation of care including admission/observation considered. Management of patient was discussed with the following: Dr waters. Historians other than the Patient: EMS: [facility]. Counseling: I had a detailed discussion with the patient and/or guardian regarding: the historical points, exam findings, and any diagnostic results supporting the discharge/admit diagnosis, lab results, radiology results, the need for outpatient follow up, a family practitioner, to return to the emergency department if symptoms worsen or persist or if there are any questions or concerns that arise at home. 03/24 12:03 Order name: Urine Microscopic Only; Complete Time: 12:41 kb 03/24 12:15 Order name: Urine Dipstick-Ancillary; Complete Time: 12:16 EDMS 03/24 12:16 Order name: Urine --Ancillary (enter results); Complete Time: 13:22 bd 03/24 12:33 Order name: Urine Culture EDMS 03/24 13:00 Order name: CT Lumbar Spine Wo Con; Complete Time: 13:49 kb 03/24 12:03 Order name: Urine Dipstick-Ancillary (obtain specimen); Complete Time: 12:17 kb 03/24 12:03 Order name: Urine Test (obtain specimen); Complete Time: 12:17 kb Administered Medications: 12:15 Drug: TORadol (ketorolac) 30 mg Route: IM; Site: right deltoid; eh3 13:30 Follow up: Response: Pain is decreased eh3 12:15 Drug: Valium (diazepam) 5 mg Route: PO; eh3 13:30 Follow up: Response: Anxiety decreased eh3 12:15 Drug: HYDROcodone-acetaminophen 5 mg-325 mg 1 tabs Route: PO; eh3 13:30 Follow up: Response: Pain is decreased eh3 14:17 Drug: Lidoderm Patch 5 % (700 mg/patch) 1 patches Route: Topical; Site: affected area; iw 14:18 Drug: SOLU-Medrol (methylPREDNISolone sodium succinate) 125 mg Route: IM; Site: right iw ventrogluteal; 16:35 Drug: [place] (HYDROcodone-acetaminophen) 10 mg-325 mg 1 tabs Route: PO; iw Disposition: 18:49 Co-signature as Attending Physician, Nash Waters DO I reviewed the patient's care ms3 provided by the Advanced Practice Provider and agree with the diagnosis and treatment plan. Disposition Summary: 03/24/22 16:24 Discharge Ordered Location: Home kb Condition: Stable kb Diagnosis - Low back pain kb Followup: kb - With: Emergency Department - When: As needed - Reason: Worsening of condition Followup: kb - With: Private Physician - When: 2 - 3 days - Reason: Recheck today's complaints, Continuance of care, Re-evaluation by your physician Discharge Instructions: - Discharge Summary Sheet kb - Acute Back Pain, Adult kb - Musculoskeletal Pain kb Forms: - Medication Reconciliation Form kb - Thank You Letter kb - Antibiotic Education kb - Prescription Opioid Use kb - Work release form ss Prescriptions: - Cyclobenzaprine 10 mg Oral Tablet - take 1 tablet by ORAL route every 8 hours As needed; 15 tablet; Refills: 0, kb Product Selection Permitted - Diclofenac Sodium 75 mg Oral tablet,delayed release (DR/EC) - take 1 tablet by ORAL route 2 times per day As needed; 30 tablet; Refills: 0, kb Product Selection Permitted - Medrol (Rogerio) 4 mg Oral Tablets, Dose Pack - take 1 tablet by ORAL route as directed - follow package instructions; 1 kb packet; Refills: 0, Product Selection Permitted Signatures: Dispatcher [employer] Arina Coleman, ALICIAC DAYANARA-Meseret Crow, NAKUL RN iw Nash Waters, DO STYLES ms3 Sarahi Yeh RN RN eh3
--- NOTE | 2022-03-24 16:24 | ER ---
Nurse's Notes [facility] Name: Zelda Davalos Age: 31 yrs Sex: Female : 1990 Arrival Date: 03/24/2022 Time: 12:00 Bed 18 Private MD: Diagnosis: Low back pain Presentation: 03/24 12:03 Chief complaint: EMS states: right lower back pain shooting up spine started this 3 morning while getting ready for work. Coronavirus screen: Vaccine status: Patient reports receiving the 2nd dose of the covid vaccine. Ebola Screen: No symptoms or risks identified at this time. Initial Sepsis Screen: Does the patient meet any 2 criteria? No. Patient's initial sepsis screen is negative. Does the patient have a suspected source of infection? No. Patient's initial sepsis screen is negative. Risk Assessment: Do you want to hurt yourself or someone else? Patient reports no desire to harm self or others. Onset of symptoms was March 24, 2022. 12:03 Method Of Arrival: EMS: [facility] 12:03 Acuity: MINAL 3 eh3 Triage Assessment: 12:05 General: Appears distressed, uncomfortable, Behavior is cooperative, appropriate for [facility] age. Pain: Complains of pain in right low back Pain radiates to thoracic area and lumbar area Pain currently is 10 out of 10 on a pain scale. EENT: No signs and/or symptoms were reported regarding the EENT system. Neuro: Level of Consciousness is awake, alert, obeys commands, Oriented to person, place, time, situation. Cardiovascular: Capillary refill < 3 seconds Patient's skin is warm and dry. Respiratory: Airway is patent Respiratory effort is even, unlabored, Respiratory pattern is regular, symmetrical. GI: Abdomen is round non-distended. : No signs and/or symptoms were reported regarding the genitourinary system. Derm: No signs and/or symptoms reported regarding the dermatologic system. Skin is pink, warm \T\ dry. Musculoskeletal: No signs and/or symptoms reported regarding the musculoskeletal system. Circulation, motion, and sensation intact. Historical: - Home Meds: 12:05 levothyroxine 100 mcg cap 1 cap once daily [Active]; Baclofen Oral [Active]; eh3 - PMHx: 12:05 Hypothyroidism; kidney problems; Kidney stones; Migraine; eh3 - PSHx: 12:05 ; eh3 - Immunization history:: Adult Immunizations up to date. - Social history:: Smoking status: Patient denies any tobacco usage or history of. Patient uses alcohol, occasionally. Screenin:07 [facility] ED Fall Risk Assessment (Adult) History of falling in the last 3 months, eh3 including since admission No falls in past 3 months (0 pts) Confusion or Disorientation No (0 pts) Intoxicated or Sedated No (0 pts) Impaired Gait Yes (1 pt) Mobility Assist Device Used No (0 pt) Altered Elimination No (0 pt) Score/Fall Risk Level 0 - 2 = Low Risk. Abuse screen: Denies threats or abuse. Denies injuries from another. Nutritional screening: No deficits noted. Tuberculosis screening: No symptoms or risk factors identified. Assessment: 12:07 Reassessment: No changes from previously documented assessment. See triage assessment. eh3 13:00 Reassessment: Patient appears in no apparent distress at this time. Patient and/or 3 family updated on plan of care and expected duration. Pain level reassessed. Patient is alert, oriented x 3, equal unlabored respirations, skin warm/dry/pink. 15:00 Reassessment: Patient appears in no apparent distress at this time. Patient states iw symptoms have not improved. Vital Signs: 12:03 BP 109 / 79; Pulse 75; Resp 18; Temp 98.0(O); Pulse Ox 100% ; Weight 122.47 kg; Height eh3 5 ft. 6 in. (167.64 cm); Pain 10/10; 13:00 BP 119 / 70; Pulse 70; Resp 18; Pulse Ox 97% on R/A; eh3 16:43 BP 113 / 70; Pulse 78; Resp 16; Pulse Ox 98% on R/A; iw 12:03 Body Mass Index 43.58 (122.47 kg, 167.64 cm) 3 ED Course: 12:00 Patient arrived in ED. kb 12:00 Arina Glaser FNP-C is PHCP. kb 12:00 Nash Cherry DO is Attending Physician. kb 12:03 Sarahi Yeh, NAKUL is Primary Nurse. eh3 12:04 Triage completed. eh3 12:05 Arm band placed on. eh3 12:07 Patient has correct armband on for positive identification. Bed in low position. Call eh3 light in reach. Side rails up X2. Pulse ox on. NIBP on. Door closed. Noise minimized. Warm blanket given. 12:17 Urine Microscopic Only Sent. bc6 13:23 CT Lumbar Spine Wo Con In Process Unspecified. EDMS Administered Medications: 12:15 Drug: TORadol (ketorolac) 30 mg Route: IM; Site: right deltoid; eh3 13:30 Follow up: Response: Pain is decreased eh3 12:15 Drug: Valium (diazepam) 5 mg Route: PO; eh3 13:30 Follow up: Response: Anxiety decreased eh3 12:15 Drug: HYDROcodone-acetaminophen 5 mg-325 mg 1 tabs Route: PO; eh3 13:30 Follow up: Response: Pain is decreased eh3 14:17 Drug: Lidoderm Patch 5 % (700 mg/patch) 1 patches Route: Topical; Site: affected area; iw 14:18 Drug: SOLU-Medrol (methylPREDNISolone sodium succinate) 125 mg Route: IM; Site: right iw ventrogluteal; 16:35 Drug: [place] (HYDROcodone-acetaminophen) 10 mg-325 mg 1 tabs Route: PO; iw Outcome: 16:24 Discharge ordered by . kb 16:43 Discharged to home via wheelchair, with family. iw 16:43 Condition: good 16:43 Discharge instructions given to family, Instructed on discharge instructions, follow up and referral plans. Demonstrated understanding of instructions, follow-up care, medications, Prescriptions given X 3. 16:43 Patient left the ED. iw Signatures: Dispatcher [employer] EDArina Stein, CLINT NICHOLE-Meseret Crow, RN RN iw Sarahi Yeh, NAKUL RN 3 Ila Chiang bc6
[2022-03-24] MEDS ORDERED: HYDROCODONE/APAP 10/325 TAB ONE (16:33)
[2022-03-24 17:32] VITALS: TEMP 98
[2022-03-24 17:35] VITALS: BP 113/70; O2SAT 98
== END 2022-03-24 16:43 | disposition home or self-care (01) ==
LOC: ER 11:48
DX: M54.50 Low back pain, unspecified (principal); E03.9 Hypothyroidism, unspecified
CPT/HCPCS: 87088; 87086; 81025; 72131; J2001 ×2; J2930; 81003; 81015; 87077; 87186; 96372; 99284